=== PATIENT | male | born 1965 | race Two or more races ===

== ENCOUNTER 2017-04-22 15:51 | Observation (INO) | payer MEDICARE ==
--- NOTE | 2017-04-22 17:15 | ER Document Report ---
ED Medical Screen (RME) - General Mode of Arrival: Ambulatory Information source: Patient TRAVEL OUTSIDE OF THE [place] IN LAST 30 DAYS: No <DANNA MALIN - Last Filed: 04/22/17 20:06> <EVANGELINA DURAN - Last Filed: 04/27/17 20:52> - General Chief Complaint: Chest Pain Stated Complaint: CHEST PAIN Time Seen by Provider: 04/22/17 16:54 Notes: Patient is a 51 year old male with a history of NE and cardiac stents was sent to the emergency department by Dr. Tovar for chest pain onset last night. Patient states that he has been having intermittent chest pain which he describes a pressure. Patient also states that he feels as if he is going to "black out" with his chest pain. Patients associated symptoms include slurred speech and left sided tingling of tongue, jaw and arm. Patient denies cough, congestion, or vomiting. Patient states he took 2 Nitro this morning but it did not help his symptoms. ( DANNA MALIN) - Related Data Allergies/Adverse Reactions: pseudoephedrine [From Sudafed] Allergy (Verified 04/22/17 15:54) Sulfa (Sulfonamide Antibiotics) Allergy (Verified 04/22/17 15:54) Past Medical History - Social History Chew tobacco use (# tins/day): No Frequency of alcohol use: None Drug Abuse: None - Past Medical History Cardiac Medical History: Reports: Hx Heart Attack, Hx Hypercholesterolemia, Hx Hypertension Renal/ Medical History: Denies: Hx Peritoneal Dialysis Past Surgical History: Reports: Hx Abdominal Surgery, Hx Appendectomy, Hx Orthopedic Surgery - right shoulder, bilat knee replacement <DANNA MALIN - Last Filed: 04/22/17 20:06> Physical Exam <DANNA MALIN - Last Filed: 04/22/17 20:06> <EVANGELINA DURAN - Last Filed: 04/27/17 20:52> - Vital signs Vitals: Temp Pulse BP Pulse Ox 98.7 F 56 L 94/54 L 96 04/22/17 16:14 04/22/17 16:14 04/22/17 16:14 04/22/17 16:14 - Notes Notes: GENERAL: Alert, interacts well. No acute distress. HEAD: Normocephalic, atraumatic. EYES: Appear normal. Pupils equal, round, and reactive to light. ENT: Moist mucus membranes, tongue midline. NECK: Full range of motion. Supple. Trachea midline. LUNGS: Clear to auscultation bilaterally, no wheezes, rales, or rhonchi. No respiratory distress. HEART: Regular rate and rhythm. No murmurs, gallops, or rubs. ABDOMEN: Soft, non-tender. Non-distended. Normal bowel sounds. EXTREMITIES: Moves all 4 extremities spontaneously. Normal strength. No edema. NEUROLOGICAL: Alert and oriented x3. Slurred speech. PSYCH: Normal affect, normal mood. SKIN: Warm, dry, normal turgor. No rashes or lesions noted. (DANNA MALIN) Course - Laboratory Result Diagrams: 04/22/17 18:33 04/22/17 18:33 <DANNA MALIN - Last Filed: 04/22/17 20:06> - Laboratory Result Diagrams: 04/22/17 18:33 04/22/17 18:33 <EVANGELINA DURAN - Last Filed: 04/27/17 20:52> - Vital Signs Vital signs: Temp Pulse Resp BP Pulse Ox 97.8 F 51 L 18 100/51 L 99 04/23/17 12:15 04/23/17 12:15 04/23/17 12:15 04/23/17 12:15 04/23/17 12:15 - Laboratory Laboratory results interpreted by me: 04/22/17 04/22/17 18:33 18:33 RBC 4.23 L Hgb 13.2 L RDW 14.2 H Potassium 5.4 H BUN 25 H Creatinine 1.68 H Est GFR ( Amer) 52 L Est GFR (Non-Af Amer) 43 L Doctor's Discharge <DANNA MALIN - Last Filed: 04/22/17 20:06> <EVANGELINA DURAN - Last Filed: 04/27/17 20:52> - Discharge Clinical Impression: Bradycardia Chest pain Qualifiers: Chest pain type: precordial pain Qualified Code(s): R07.2 - Precordial pain Condition: Stable Disposition: ADMITTED OBSERVATION Scribe Documentation - Scribe Written by Scribe:: Luis Jacobo, 04/22/2017 17:55 acting as scribe for :: Silas <DANNA MALIN - Last Filed: 04/22/17 20:06>
--- NOTE | 2017-04-22 17:41 | RADIOLOGY REPORT (SQ) ---
EXAM DESCRIPTION: CHEST SINGLE VIEW COMPLETED DATE/TIME: 04/22/2017 5:20 pm REASON FOR STUDY: chest pain COMPARISON: None. EXAM PARAMETERS: NUMBER OF VIEWS: One view. TECHNIQUE: Single frontal radiographic view of the chest acquired. RADIATION DOSE: NA LIMITATIONS: None. FINDINGS: LUNGS AND PLEURA: No opacities, masses or pneumothorax. No pleural effusion. MEDIASTINUM AND HILAR STRUCTURES: No masses. Contour normal. HEART AND VASCULAR STRUCTURES: Heart normal in size. Normal vasculature. BONES: No acute findings. HARDWARE: None in the chest. OTHER: No other significant finding. IMPRESSION: NO ACUTE RADIOGRAPHIC FINDING IN THE CHEST. TECHNICAL DOCUMENTATION: JOB ID: [id number] [employer]- All Rights Reserved
[2017-04-22 19:09] LABS: ABSOLUTE EOSINOPHILS # (AUTO) 0.2 10^3/uL (0.0-0.6); ABSOLUTE LYMPHOCYTES (AUTO) 1.6 10^3/uL (0.5-4.7); ABSOLUTE MONOCYTES (AUTO) 0.8 10^3/uL (0.1-1.4); ABSOLUTE NEUT (AUTO) 4.4 10^3/uL (1.7-8.2); BASOPHILS % (AUTO) 0.5 % (0-2); EOSINOPHILS % (AUTO) 3.6 % (0-6); HEMATOCRIT 38.4 % (37.9-51.0); HEMOGLOBIN 13.2 g/dL (13.5-17.0); LYMPHOCYTES % (AUTO) 22.2 % (13-45); MEAN CORPUSCULAR HEMOGLOBIN 31.1 pg (27.0-33.4); MEAN CORPUSCULAR HGB CONC 34.3 g/dL (32.0-36.0); MEAN CORPUSCULAR VOLUME 91 fl (80-97); PLATELET COUNT 323 10^3/uL (150-450); RED BLOOD COUNT 4.23 10^6/uL (4.35-5.55); RED CELL DISTRIBUTION WIDTH 14.2 % (11.5-14.0); SEGMENTED NEUTROPHILS % (AUTO) 62.7 % (42-78); TOTAL CELLS COUNTED % (AUTO) 100 %
[2017-04-22 19:30] LABS: ALANINE AMINOTRANSFERASE 26 U/L (21-72); ALBUMIN 4.3 g/dL (3.5-5.0); ALKALINE PHOSPHATASE 98 U/L (38-126); ANION GAP 10 (5-19); ASPARTATE AMINO TRANSFERASE 25 U/L (17-59); BILIRUBIN,DIRECT 0.2 mg/dL (0.0-0.4); BILIRUBIN,TOTAL 0.4 mg/dL (0.2-1.3); BLOOD UREA NITROGEN 25 mg/dL (7-20); CALCIUM 9.4 mg/dL (8.4-10.2); CARBON DIOXIDE 26 mmol/L (22-30); CHLORIDE 102 mmol/L (98-107); GLUCOSE 95 mg/dL (75-110); POTASSIUM 5.4 mmol/L (3.6-5.0); TOTAL PROTEIN 7.3 g/dL (6.3-8.2)
[2017-04-22 19:43] LABS: NT PRO BNP 68 pg/mL (5-900)
[2017-04-22 19:46] LABS: TROPONIN I < 0.012 ng/mL
--- NOTE | 2017-04-22 22:01 | ER Document Report ---
ED General - General Chief Complaint: Chest Pain Stated Complaint: CHEST PAIN Time Seen by Provider: 04/22/17 16:54 Mode of Arrival: Ambulatory Notes: She is a pleasant 51-year-old male with a history of coronary disease presents with complaint of chest pain. Patient says that he gets chest pain gets dizzy and feels weak. He saw Dr. Tovar today in his office and asked me to refer him to the ER for further workup. Patient says the pain is mostly left -sided. Is not worse with movement. Is not worse with palpation. He denies any vomiting. He says his previous heart cath was in 2010. Last stress test was approximately year and a half ago. Stress test was performed in [place]. He has no other complaints at this time. He says he is compliant with his medications. TRAVEL OUTSIDE OF THE [place] IN LAST 30 DAYS: No - Related Data Allergies/Adverse Reactions: pseudoephedrine [From Sudafed] Allergy (Verified 04/22/17 15:54) Sulfa (Sulfonamide Antibiotics) Allergy (Verified 04/22/17 15:54) Past Medical History - General Information source: Patient - Social History Smoking Status: Never Smoker Chew tobacco use (# tins/day): No Frequency of alcohol use: None Drug Abuse: None Family History: Reviewed & Not Pertinent Patient has suicidal ideation: No Patient has homicidal ideation: No - Past Medical History Cardiac Medical History: Reports: Hx Heart Attack, Hx Hypercholesterolemia, Hx Hypertension Renal/ Medical History: Denies: Hx Peritoneal Dialysis Past Surgical History: Reports: Hx Abdominal Surgery, Hx Appendectomy, Hx Orthopedic Surgery - right shoulder, bilat knee replacement Review of Systems - Review of Systems Notes: My Normal Review Basic REVIEW OF SYSTEMS: CONSTITUTIONAL : Denies fever, chills, or sweats. Denies recent illness. EENT: Denies eye, ear, throat, or mouth pain or symptoms. Denies nasal or sinus congestion. CARDIOVASCULAR: Chest pain RESPIRATORY: Denies cough, cold, or chest congestion. Denies shortness of breath, difficulty breathing, or wheezing. GASTROINTESTINAL: Denies abdominal pain. Denies nausea, vomiting, or diarrhea MUSCULOSKELETAL: Denies neck or back pain or joint pain or swelling. SKIN: Denies rash or skin lesions. NEUROLOGICAL: Denies altered mental status or loss of consciousness. Denies headache. Denies weakness or paralysis or loss of use of either side. Denies problems with gait or speech. Denies sensory or motor loss. ALL OTHER SYSTEMS REVIEWED AND NEGATIVE. Physical Exam - Vital signs Vitals: Temp Pulse BP Pulse Ox 98.7 F 56 L 94/54 L 96 04/22/17 16:14 04/22/17 16:14 04/22/17 16:14 04/22/17 16:14 - Notes Notes: General Appearance: Well nourished, alert, cooperative, no acute distress, no obvious discomfort. Vitals: reviewed, See vital signs table. Head: no swelling or tenderness to the head Eyes: PERRL, EOMI, Conjuctiva clear Mouth: No decreasd moisture Lungs: No wheezing, No rales, No rhonci, No accessory muscle use, good air exchange bilaterally. Heart: Normal rate, Regular rythm, No murmur, no rub Abdomen: Normal BS, soft, No rigidity, No abdominal tenderness, No guarding, no rebound Extremities: strength 5/5 in all extremities, good pulses in all extremities, no swelling or tenderness in the extremities, no edema. Skin: warm, dry, appropriate color, no rash Neuro: speech clear, oriented x 3, normal affect, responds appropriately to questions. Course - Re-evaluation Re-evalutation: 04/23/17 05:54 Patient she has a history of coronary disease chest pain. I did treat him with nitro paste here. I did speak with Dr. Tovar on the phone iand agreeable with him being admitted possibly arrange for stress test in the morning. I did speak with Dr. Matta informed him the plan. Dr. Matta agrees to admit the patient. Dictation of this chart was performed using voice recognition software; therefore, there may be some unintended grammatical errors. - Vital Signs Vital signs: Temp Pulse Resp BP Pulse Ox 97.9 F 56 L 14 97/64 L 96 04/23/17 05:45 04/22/17 16:14 04/23/17 05:01 04/23/17 05:01 04/23/17 05:01 - Laboratory Result Diagrams: 04/22/17 18:33 04/22/17 18:33 Laboratory results interpreted by me: 04/22/17 04/22/17 18:33 18:33 RBC 4.23 L Hgb 13.2 L RDW 14.2 H Potassium 5.4 H BUN 25 H Creatinine 1.68 H Est GFR ( Amer) 52 L Est GFR (Non-Af Amer) 43 L - EKG Interpretation by Me Additional EKG results interpreted by me: 04/22/17 22:01 EKG is reviewed and interpreted by me. EKG shows sinus bradycardia with rate [address] segment elevation or depression. No ischemic T-wave inversions. DE interval, QRS duration, QTc intervals are within normal range. No old EKG available for comparison. Discharge - Discharge Clinical Impression: Bradycardia Chest pain Qualifiers: Chest pain type: precordial pain Qualified Code(s): R07.2 - Precordial pain Condition: Stable Disposition: ADMITTED OBSERVATION Admitting Provider: Hospitalist Unit Admitted: Telemetry
[2017-04-22] MEDS ORDERED: NITROGLYCERIN 2% OINTMENT 1 GM PACKET TP ONE (22:59)
[2017-04-22] MEDS ORDERED: ASPIRIN 325 MG TABLET PO ONE (23:05)
[2017-04-22] MEDS ORDERED: ASPIRIN 81 MG TABLET, CHEWABLE PO ONE (23:07)
[2017-04-23] MEDS ORDERED: METOPROLOL TARTRATE PF/INJ 5 MG/5 ML SDV IV PRN (01:18)
[2017-04-23] MEDS ORDERED: NITROGLYCERIN 0.4 MG/TAB 25 TAB/BOTTLE SL PRN (01:18)
[2017-04-23] MEDS ORDERED: ENOXAPARIN SODIUM INJ 120 MG/0.8 ML DISP.SYRIN SUBCUT ONE (01:45)
[2017-04-23 04:10] LABS: APPEARANCE,URINE CLEAR; BILIRUBIN,URINE NEGATIVE (NEGATIVE); COLOR,URINE STRAW; GLUCOSE, URINE NEGATIVE (NEGATIVE); KETONES,URINE NEGATIVE (NEGATIVE); LEUKOCYTE ESTERASE,URINE NEGATIVE (NEGATIVE); NITRITE,URINE NEGATIVE (NEGATIVE); PROTEIN,URINE NEGATIVE (NEGATIVE); URINE SPECIFIC GRAVITY 1.004; UROBILINOGEN,URINE NEGATIVE mg/dL (<2.0)
--- NOTE | 2017-04-23 07:40 | EKG REPORT ---
SEVERITY:- OTHERWISE NORMAL ECG - SINUS BRADYCARDIA : Confirmed by: Ivette Tapia MD 23-Apr-2017 07:39:14
--- NOTE | 2017-04-23 07:40 | EKG REPORT ---
SEVERITY:- NORMAL ECG - SINUS RHYTHM : Confirmed by: Ivette Tapia MD 23-Apr-2017 07:39:18
[2017-04-23 08:07] LABS: CHOLESTEROL 174.89 mg/dL (0-200); TRIGLYCERIDES 182 mg/dL (<150)
[2017-04-23 08:19] LABS: DIRECT LDL 103 mg/dL (<100)
[2017-04-23 08:32] LABS: VLDL CHOLESTEROL 36.4 mg/dL (10-31)
[2017-04-23] MEDS ORDERED: ASPIRIN 81 MG TABLET, CHEWABLE PO SCH (10:00)
[2017-04-23 12:17] VITALS: BP 100/51
--- NOTE | 2017-04-23 20:16 | PDOC PROGRESS REPORT ---
Subjective Progress Note for:: 04/23/17 Subjective:: Patient was seen yesterday in the office along with my physician medical office receptionist assistant. Patient had complained of chest discomfort, central in location which started yesterday morning. Patient to sublingual nitroglycerin on his own which he claims caused a burning on his tongue therefore not . Patient had an EKG performed which showed some minor nonspecific T-wave inversion in inferior leads. Patient describes history of non-ST myocardial infarction with similar chest pain and was concerned if he is having a myocardial infarction. Patient was noted to be quite anxious. Because of patient history of non-STEMI and prior stent placement, it was felt that the best option would be to admit to the hospital for observation, done some cardiac enzymes and do a stress test in the morning if patient continues to have chest pain. It seems patient still had some chest pain while waiting in the ER to be seen. Patient was subsequently admitted and this morning when seen by me he denied any chest pain. His cardiac enzymes are negative. EKGs were noted to be nonacute. Patient previous stress test was reviewed and he had a stress test performed in November which was negative. Reason For Visit: ACS Physical Exam Vital Signs: Temp Pulse Resp BP Pulse Ox 97.8 F 51 L 18 100/51 L 99 04/23/17 12:15 04/23/17 12:15 04/23/17 12:15 04/23/17 12:15 04/23/17 12:15 Intake & Output 04/22/17 04/23/17 04/24/17 06:59 06:59 06:59 Output Total 850 Balance -850 Weight 107.1 kg Exam: GENERAL: well-nourished and in no acute distress. Alert and oriented x3 HEAD: Atraumatic, normocephalic. EYES: Pupils equal round and reactive to light, extraocular movements intact, sclera anicteric, conjunctiva are normal. ENT: TMs normal, nares patent, oropharynx clear without exudates. Moist mucous membranes. No oral ulcerations or bleeding gums noted NECK: supple without lymphadenopathy. Trachea is central. No cervical or axillary lymphadenopathy noted. Carotids are 2+, JVD WNL LUNGS: Respiration seems nonlabored, no significant accessory muscle action noted. Breath sounds clear to auscultation bilaterally and equal noted. No wheezes rales or rhonchi noted. No significant dullness noted on percussion. CHEST: Palpation of the chest wall shows no significant chest wall tenderness. No other significant abnormalities noted. HEART: [place] BOAT HAND, No PSH, 1/6 DINH aortic area, 1/6 yin systolic murmur mitral area, no rubs, no gallops. ABDOMEN: Soft, no significant tenderness appreciated, normoactive bowel sounds. No guarding, no rebound. No rigidity noted . No masses appreciated. EXTREMITIES: Pedal pulses are 1-2+, no calf tenderness noted. No clubbing or cyanosis.trace to 1+ pedal edema noted NEUROLOGICAL: Focused neurological exam showed no significant neurologic deficit. Normal speech, no focal weakness appreciated. PSYCH: Normal mood, normal affect. Judgment and insight within normal limits. SKIN: No significant ecchymosis, rash, ulcerations or signs of pruritus noted. MUSCULOSKELETAL EXAM: No significant joint swelling noted. Results Laboratory Results: 04/23/17 04/23/17 03:48 07:42 Triglycerides 182 H Cholesterol 174.89 LDL Cholesterol Direct 103 H VLDL Cholesterol 36.4 H HDL Cholesterol 39 L Urine Color STRAW Urine Appearance CLEAR Urine pH 6.0 Ur Specific [place] 1.004 Urine Protein NEGATIVE Urine Glucose (UA) NEGATIVE Urine Ketones NEGATIVE Urine Blood NEGATIVE Urine Nitrite NEGATIVE Ur Leukocyte Esterase NEGATIVE Urine WBC (Auto) 1 Urine RBC (Auto) 0 04/23/17 04/23/17 01:50 07:42 Troponin I < 0.012 < 0.012 EKG Comments: 2 EKGs reviewed and were noted to be negative. Impressions: Chest X-Ray 04/22/17 16:55 IMPRESSION: NO ACUTE RADIOGRAPHIC FINDING IN THE CHEST. Assessment & Plan - Diagnosis (1) Chest pain Qualifiers: Chest pain type: precordial pain Qualified Code(s): R07.2 - Precordial pain Is this a current diagnosis for this admission?: Yes (2) CAD (coronary artery disease) Qualifiers: Coronary Disease-Associated Artery/Lesion type: [place] artery [place] vs. transplanted heart: [place] heart Associated angina: angina presence unspecified Qualified Code(s): I25.10 - Atherosclerotic heart disease of [place] coronary artery without angina pectoris Is this a current diagnosis for this admission?: Yes (3) DM2 (diabetes mellitus, type 2) Qualifiers: Diabetes mellitus complication status: with unspecified complications Diabetes mellitus half-way insulin use: without marine oil terminal superintendent use Qualified Code( s): E11.8 - Type 2 diabetes mellitus with unspecified complications Is this a current diagnosis for this admission?: Yes (4) PTSD (post-traumatic stress disorder) Is this a current diagnosis for this admission?: Yes - Notes Notes: Chest pain: Patient was admitted for overnight observation for chest pain. Given patient's risk factors and known CAD with prior stent placement and patient description of chest pain, it was felt that overnight observation with cardiac enzymes to rule out any myocardial infarction is indicated. Patient cardiac enzymes were stone cold negative and the enzymes were also negative. It was felt that patient is quite anxious and could well be having stress related chest pain. Patient previous stress test was reviewed. At this point it was felt that it was safe enough to discharge patient home with further evaluation be completed as an outpatient. Coronary artery disease: Currently stable. Diabetes: Recommend good control. PTSD: Stable. Patient can be discharged with close cardiology follow-up as an outpatient. Patient was informed of this decision. - Time Time with patient: Greater than 35 minutes - CODE STATUS was discussed, patient remains full code. Surrogate decision-maker patient's daughter. Multiple medical problems were addressed. More than 50% of the time spent coordinating care, discussing management plans with involved caregivers. Management plans discussed with involved personnels. Medical decision making was of moderate to high complexity, patient's has multiple comorbidities. Medications reviewed and adjusted accordingly: Yes
[2017-04-23] MEDS ORDERED: ENOXAPARIN SODIUM INJ 120 MG/0.8 ML DISP.SYRIN SUBCUT SCH (22:00)
--- NOTE | 2017-04-24 17:06 | PDOC DISCHARGE SUMMARY ---
General - Admit/Disc Date/PCP Admission Date/Primary Care Provider: 04/22/17 23:24 Discharge Date: 04/23/17 - Discharge Diagnosis (1) CAD (coronary artery disease) Is this a current diagnosis for this admission?: Yes (2) Chest pain Is this a current diagnosis for this admission?: Yes (4) DM2 (diabetes mellitus, type 2) Is this a current diagnosis for this admission?: Yes (5) MICHAEL on CPAP Is this a current diagnosis for this admission?: Yes (6) PTSD (post-traumatic stress disorder) Is this a current diagnosis for this admission?: Yes - Additional Information Resuscitation Status: Full Code Discharge Diet: As Tolerated, Cardiac Discharge Activity: Activity As Tolerated, Balance Activity w/Rest Home Medications: Amlodipine Besylate [Norvasc 10 mg Tablet] 10 mg PO DAILY 04/23/17 Aspirin [Aspirin EC] 81 mg PO DAILY 04/23/17 Atorvastatin Calcium [Lipitor 40 mg Tablet] 40 mg PO DAILY 04/23/17 Citalopram Hydrobromide [Celexa 20 mg Tablet] 30 mg PO DAILY 04/23/17 Divalproex Sodium [Divalproex Sodium ER] 250 mg PO BID 04/23/17 Docusate Sodium [Colace 100 mg Capsule] 100 mg PO DAILYP PRN 04/23/17 Doxazosin Mesylate [Cardura 2 mg Tablet] 2 mg PO DAILY 04/23/17 Fluticasone Propionate [Flonase Nasal [place] 50 Mcg/[place] 16 gm] 1 spray NASL DAILY 04/23/17 Gabapentin [Neurontin] 800 mg PO Q8 04/23/17 Haloperidol [Haldol 1 mg Tablet] 1 mg PO Q8 04/23/17 Lisinopril [Prinivil] 20 mg PO DAILY 04/23/17 Metformin HCl [Glucophage 500 mg Tablet] 500 mg PO DAILY 04/23/17 Nitroglycerin [Nitrostat] 0.3 mg SL Q5MP PRN 04/23/17 Ranolazine [Ranexa] 1,000 mg PO BID 04/23/17 Trihexyphenidyl HCl [Artane 2 mg Tablet] 2 mg PO Q6 04/23/17 History of Present Illness History of Present Illness: JOIE BYRD is a 51 year old male with a history of coronary disease presents with complaint of chest pain. Patient says that he gets chest pain gets dizzy and feels weak. He saw Dr. Tovar on the day of admission in his office and asked him to go the ER for further workup. Patient stated the pain was mostly left-sided. Was not worse with movement or with palpation. He denied any vomiting. He ststed that he had a heart attack back in 2010 when he had a heart cath. Last stress test was approximately year and a half ago. Stress test was performed in [place]. Patient was admitted on the hospitalist service for further evaluation Hospital Course Hospital Course: Patient was admitted to telemetry unit. There were no cardiac dysrhythmias. Troponin was trended 3 and negative. Patient remain chest pain-free while in- house. Patient was seen by Dr. Tovar who recommended for patient to be discharged. He did not recommend a stress test during this hospitalization. Patient was stable at the time of discharge Physical Exam Vital Signs: Temp Pulse Resp BP Pulse Ox 97.8 F 51 L 18 100/51 L 99 04/23/17 12:15 04/23/17 12:15 04/23/17 12:15 04/23/17 12:15 04/23/17 12:15 Intake & Output 04/23/17 04/24/17 04/25/17 06:59 06:59 06:59 Output Total 850 Balance -850 Weight 107.1 kg General appearance: PRESENT: no acute distress, cooperative, morbidly obese Head exam: PRESENT: atraumatic, normocephalic Eye exam: PRESENT: EOMI, PERRLA Mouth exam: PRESENT: moist, neck supple Neck exam: PRESENT: full ROM. ABSENT: JVD, lymphadenopathy, tenderness Respiratory exam: PRESENT: clear to auscultation [place] Cardiovascular exam: PRESENT: bradycardia. ABSENT: diastolic murmur, systolic murmur Vascular exam: PRESENT: normal capillary refill GI/Abdominal exam: PRESENT: normal bowel sounds, soft. ABSENT: tenderness Extremities exam: PRESENT: full ROM. ABSENT: clubbing, joint swelling, pedal edema Musculoskeletal exam: PRESENT: ambulatory, full ROM Neurological exam: PRESENT: alert, awake, oriented to person, oriented to place , oriented to time, oriented to situation, CN II-XII grossly intact Psychiatric exam: PRESENT: appropriate affect, normal mood Skin exam: PRESENT: intact, normal color Results Laboratory Results: 04/23/17 04/23/17 01:50 07:42 Troponin I < 0.012 < 0.012 Impressions: Chest X-Ray 04/22/17 16:55 IMPRESSION: NO ACUTE RADIOGRAPHIC FINDING IN THE CHEST. Plan Discharge Plan: Discharge home Time Spent: Less than 30 Minutes
--- NOTE | 2017-04-24 18:47 | PDOC H&P ---
History of Present Illness Admission Date/PCP: 04/22/17 23:24 Patient complains of: Chest pains History of Present Illness: JOIE BYRD is a 51 year old male with a past medical history of coronary artery disease. He had remained chest pain-free since his heart attack several years ago. At that time he did have single-vessel disease according to the patient. He relates that he had a stress test about a year ago. He had remained asymptomatic until approximately 2 days ago when he began experiencing chest pressure at rest. He went to see his meter mechanic. Electrocardiogram showed some inferior lead ST T-wave changes. Patient was referred to the emergency room for enzymes and treatments. Patient related that he continued to have chest pains in the waiting room which responded to 3 doses of nitroglycerin and is currently pain-free. Past Medical History Cardiac Medical History: Reports: Myocardial Infarction, Hyperlipidema, Hypertension Endocrine Medical History: Reports: Diabetes Mellitus Type 2 Renal/ Medical History: Reports: Chronic Kidney Disease Psychiatric Medical History: Reports: Post Traumatic Stress Disorder Infectious Medical History: Reports: None Past Surgical History Past Surgical History: Reports: Appendectomy, Cardiac Catheterization, Orthopedic Surgery - right shoulder, bilat knee replacement Social History Information Source: Patient Lives with: Family, Other - Patient and his ex- are currently living with their son and his family Smoking Status: Never Smoker Frequency of Alcohol Use: None Hx Recreational Drug Use: No Drugs: None Hx Prescription Drug Abuse: No - Advance Directive Resuscitation Status: Full Code Family History Family History: Hyperlipidemia Parental Family History Reviewed: Yes Children Family History Reviewed: Yes Sibling(s) Family History Reviewed.: Yes Medication/Allergy Home Medications: Amlodipine Besylate [Norvasc 10 mg Tablet] 10 mg PO DAILY 04/23/17 Aspirin [Aspirin EC] 81 mg PO DAILY 04/23/17 Atorvastatin Calcium [Lipitor 40 mg Tablet] 40 mg PO DAILY 04/23/17 Citalopram Hydrobromide [Celexa 20 mg Tablet] 30 mg PO DAILY 04/23/17 Divalproex Sodium [Divalproex Sodium ER] 250 mg PO BID 04/23/17 Docusate Sodium [Colace 100 mg Capsule] 100 mg PO DAILYP PRN 04/23/17 Doxazosin Mesylate [Cardura 2 mg Tablet] 2 mg PO DAILY 04/23/17 Fluticasone Propionate [Flonase Nasal [place] 50 Mcg/[place] 16 gm] 1 spray NASL DAILY 04/23/17 Gabapentin [Neurontin] 800 mg PO Q8 04/23/17 Haloperidol [Haldol 1 mg Tablet] 1 mg PO Q8 04/23/17 Lisinopril [Prinivil] 20 mg PO DAILY 04/23/17 Metformin HCl [Glucophage 500 mg Tablet] 500 mg PO DAILY 04/23/17 Nitroglycerin [Nitrostat] 0.3 mg SL Q5MP PRN 04/23/17 Ranolazine [Ranexa] 1,000 mg PO BID 04/23/17 Trihexyphenidyl HCl [Artane 2 mg Tablet] 2 mg PO Q6 04/23/17 Allergies/Adverse Reactions: pseudoephedrine [From Sudafed] Allergy (Verified 04/22/17 15:54) Sulfa (Sulfonamide Antibiotics) Allergy (Verified 04/22/17 15:54) Review of Systems Constitutional: ABSENT: chills, fever(s), headache(s), weight gain, weight loss Eyes: ABSENT: visual disturbances Ears: ABSENT: hearing changes Cardiovascular: PRESENT: as per HPI, chest pain. ABSENT: dyspnea on exertion, edema, orthropnea, palpitations Respiratory: ABSENT: cough, hemoptysis Gastrointestinal: ABSENT: abdominal pain, constipation, diarrhea, hematemesis, hematochezia, nausea, vomiting Genitourinary: ABSENT: dysuria, hematuria Musculoskeletal: ABSENT: joint swelling Integumentary: ABSENT: rash, wounds Neurological: ABSENT: abnormal gait, abnormal speech, confusion, dizziness, focal weakness, syncope Psychiatric: PRESENT: anxiety, depression Endocrine: ABSENT: cold intolerance, heat intolerance, polydipsia, polyuria Hematologic/Lymphatic: ABSENT: easy bleeding, easy bruising Physical Exam Vital Signs: Temp Pulse Resp BP Pulse Ox 98.0 F 56 L 16 125/83 99 04/23/17 01:00 04/22/17 16:14 04/23/17 01:01 04/23/17 00:01 04/23/17 01:01 General appearance: PRESENT: no acute distress, cooperative, obese, well- developed, well-nourished Head exam: PRESENT: atraumatic, normocephalic Eye exam: PRESENT: EOMI, PERRLA. ABSENT: nystagmus Ear exam: PRESENT: normal external ear exam Neck exam: ABSENT: carotid bruit, JVD, meningismus Respiratory exam: PRESENT: clear to auscultation [place], symmetrical, unlabored. ABSENT: accessory muscle use, rhonchi, wheezes Cardiovascular exam: PRESENT: bradycardia. ABSENT: diastolic murmur, systolic murmur, tachycardia GI/Abdominal exam: PRESENT: normal bowel sounds, soft. ABSENT: guarding, organolmegaly, rebound Rectal exam: PRESENT: deferred Extremities exam: PRESENT: full ROM. ABSENT: calf tenderness, clubbing, pedal edema Musculoskeletal exam: PRESENT: ambulatory, normal inspection Neurological exam: PRESENT: alert, awake, oriented to person, oriented to place , oriented to time, oriented to situation Psychiatric exam: PRESENT: appropriate affect, normal mood Skin exam: PRESENT: dry, intact, warm. ABSENT: cyanosis, rash Results Laboratory Results: 04/22/17 04/22/17 04/22/17 18:33 18:33 18:33 WBC 7.0 Hgb 13.2 L Plt Count 323 Sodium 138.0 Potassium 5.4 H BUN 25 H Creatinine 1.68 H AST 25 ALT 26 Alkaline Phosphatase 98 Troponin I < 0.012 NT-Pro-B Natriuret Pep 68 Albumin 4.3 EKG Comments: Sinus rhythm, previous ST segment abnormalities have resolved Impressions: Chest X-Ray 04/22/17 16:55 IMPRESSION: NO ACUTE RADIOGRAPHIC FINDING IN THE CHEST. Assessment & Plan - Diagnosis (1) PTSD (post-traumatic stress disorder) Is this a current diagnosis for this admission?: Yes (2) CAD (coronary artery disease) Qualifiers: Coronary Disease-Associated Artery/Lesion type: [place] artery [place] vs. transplanted heart: [place] heart Associated angina: angina presence unspecified Qualified Code(s): I25.10 - Atherosclerotic heart disease of [place] coronary artery without angina pectoris Is this a current diagnosis for this admission?: Yes (3) DM2 (diabetes mellitus, type 2) Qualifiers: Diabetes mellitus complication status: with unspecified complications Diabetes mellitus retirement insulin use: without retirement use Qualified Code( s): E11.8 - Type 2 diabetes mellitus with unspecified complications Is this a current diagnosis for this admission?: Yes (4) MICHAEL on CPAP Is this a current diagnosis for this admission?: Yes (5) Chest pain Qualifiers: Chest pain type: precordial pain Qualified Code(s): R07.2 - Precordial pain Is this a current diagnosis for this admission?: Yes - Time Time Spent: 30 to 50 Minutes - Plan Summary Plan Summary: Patient is currently pain-free however his initial troponin was drawn about an hour after his last episode of chest pain. he will require several more measurements. Patient will be continued on his home regimen of psychotropics. His meter mechanic is aware of his admission. The we will recheck his cholesterol and hemoglobin A1c in the morning. Patient will receive full dose Lovenox
== END 2017-04-23 12:54 | disposition home or self-care (01) ==
LOC: ER 15:51 → EH 23:24 → 3W 04-23 08:29
PROVIDERS: ADMIT Internal Medicine; ATTEND Internal Medicine
DX: I25.10 Atherosclerotic heart disease of native coronary artery without angina pectoris (principal); R07.2 Precordial pain; G47.33 Obstructive sleep apnea (adult) (pediatric); F43.10 Post-traumatic stress disorder, unspecified; R00.1 Bradycardia, unspecified; I12.9 Hypertensive chronic kidney disease with stage 1 through stage 4 chronic kidney disease, or unspecified chronic kidney disease; E11.22 Type 2 diabetes mellitus with diabetic chronic kidney disease; N18.9 Chronic kidney disease, unspecified; E11.8 Type 2 diabetes mellitus with unspecified complications; E78.5 Hyperlipidemia, unspecified; F41.9 Anxiety disorder, unspecified; F32.9 Major depressive disorder, single episode, unspecified; R20.2 Paresthesia of skin; R47.81 Slurred speech; I25.2 Old myocardial infarction; Z79.899 Other long term (current) drug therapy; Z79.82 Long term (current) use of aspirin; Z90.49 Acquired absence of other specified parts of digestive tract; Z95.5 Presence of coronary angioplasty implant and graft; Z79.84 Long term (current) use of oral hypoglycemic drugs
CPT/HCPCS: 93005; 99285; 96372; 36415 ×2; 83735; 85025; 80053; 81001; 84484 ×2; 80061; 83880; 71045; 93010; G0378 ×2; A9270 ×2; J1650; J3490

== ENCOUNTER 2017-11-11 21:10 | Emergency (ER) | payer MEDICARE ==
[2017-11-11] MEDS ORDERED: ASPIRIN 81 MG TABLET, CHEWABLE PO ONE (22:12)
--- NOTE | 2017-11-11 22:38 | RADIOLOGY REPORT (SQ) ---
EXAM DESCRIPTION: CHEST SINGLE VIEW COMPLETED DATE/TIME: 11/11/2017 10:22 pm REASON FOR STUDY: cp COMPARISON: 04/22/2017 EXAM PARAMETERS: NUMBER OF VIEWS: One view. TECHNIQUE: Single frontal radiographic view of the chest acquired. RADIATION DOSE: NA LIMITATIONS: None. FINDINGS: LUNGS AND PLEURA: No opacities, masses or pneumothorax. No pleural effusion. MEDIASTINUM AND HILAR STRUCTURES: No masses. Contour normal. HEART AND VASCULAR STRUCTURES: Heart normal in size. Normal vasculature. BONES: No acute findings. HARDWARE: None in the chest. OTHER: No other significant finding. IMPRESSION: NO ACUTE RADIOGRAPHIC FINDING IN THE CHEST. TECHNICAL DOCUMENTATION: JOB ID: [id number] [employer]- All Rights Reserved Reading location - IP/workstation name: [email or web address]
[2017-11-11] MEDS ORDERED: NITROGLYCERIN 0.4 MG/TAB 25 TAB/BOTTLE SL PRN (23:35)
--- NOTE | 2017-11-11 23:35 | ER Document Report ---
ED General - General Mode of Arrival: Ambulatory Information source: Patient TRAVEL OUTSIDE OF THE [place] IN LAST 30 DAYS: No <DANNA MALIN - Last Filed: 11/12/17 01:45> <BRETT MORALES - Last Filed: 11/12/17 05:53> - General Chief Complaint: Chest Pain Stated Complaint: CHEST PAIN Time Seen by Provider: 11/11/17 23:08 Notes: Patient is a 52 year old male presenting to the emergency department complaining of chest pain onset around 2000 tonight. Patient describes his chest pain as a stabbing that radiates into his left shoulder and arm as well as "something sitting on his chest". Patient states his symptoms feel similar to a previous FL that he had in 2010. Patient states nitroglycerin normally alleviates his symptoms although today the nitroglycerin relived his symptoms for a short period of time, further stating he last received nitro at approximately 2039. He also states he took 4 aspirin today. Patient also complains of shortness of breath and dizziness. Patient denies abdominal pain and a cough. Patient states his chief operating officer is Dr. Tovar. Patient states he received 1 stent shortly after his FL in 2010 and had a negative stress test a few months ago. (DANNA MALIN) - Related Data Allergies/Adverse Reactions: pseudoephedrine [From Sudafed] Allergy (Verified 04/22/17 15:54) Sulfa (Sulfonamide Antibiotics) Allergy (Verified 04/22/17 15:54) Past Medical History - General Information source: Patient - Social History Smoking Status: Never Smoker Cigarette use (# per day): No Chew tobacco use (# tins/day): No Smoking Education Provided: No Frequency of alcohol use: None Family History: Hyperlipidemia - Past Medical History Cardiac Medical History: Reports: Hx Heart Attack, Hx Hypercholesterolemia, Hx Hypertension Endocrine Medical History: Reports: Hx Diabetes Mellitus Type 2 Psychiatric Medical History: Reports: Hx Post Traumatic Stress Disorder Past Surgical History: Reports: Hx Abdominal Surgery, Hx Appendectomy, Hx Cardiac Catheterization, Hx Orthopedic Surgery - right shoulder, bilat knee replacement <DANNA MALIN - Last Filed: 11/12/17 01:45> Review of Systems - Review of Systems Constitutional: No symptoms reported EENT: No symptoms reported Cardiovascular: See HPI, Chest pain, Dizziness Respiratory: See HPI, Short of breath Gastrointestinal: No symptoms reported Genitourinary: No symptoms reported Male Genitourinary: No symptoms reported Musculoskeletal: No symptoms reported Skin: No symptoms reported Hematologic/Lymphatic: No symptoms reported Neurological/Psychological: No symptoms reported -: Yes All other systems reviewed and negative <DANNA MALIN - Last Filed: 11/12/17 01:45> - Vital signs Vitals: Temp Pulse Resp BP Pulse Ox 97.7 F 61 16 107/62 94 11/11/17 21:17 11/11/17 21:17 11/11/17 21:17 11/11/17 21:17 11/11/17 21:17 Course - Laboratory Result Diagrams: 11/11/17 23:45 11/11/17 23:45 <DANNA MALIN - Last Filed: 11/12/17 01:45> - Laboratory Result Diagrams: 11/11/17 23:45 11/11/17 23:45 <BRETT MORALES - Last Filed: 11/12/17 05:53> - Re-evaluation Re-evalutation: 11/12/17 00:10 Patient rechecked. Stated the nitroglycerin did not alleviate his chest pain and caused him to have a headache. Patient further mentions having an elevated D -dimer in the past but unsure if he had a blood clot. (DANNA MALIN) 11/12/17 05:19 Patient is a 52-year-old male who comes in complaining of chest pain that is usually relieved with nitro but was not tonight. Patient received nitroglycerin here which did not change his chest pain but gave him a headache and drops his blood pressure. Pain is resolved on its own. No acute findings in EKG. Troponin negative 2. CTA negative. 11/12/17 05:[address] Tovar. Feels that the patient is safe to go home. He will see him in the office later today. Patient is agreeable to this plan. Return if any worsening or concerning symptoms. Stable for discharge. (BRETT MORALES) - Vital Signs Vital signs: Temp Pulse Resp BP Pulse Ox 97.7 F 61 14 102/71 94 11/11/17 21:17 11/11/17 21:17 11/12/17 05:00 11/12/17 05:00 11/12/17 05:00 - Laboratory Laboratory results interpreted by me: 11/11/17 11/11/17 23:45 23:45 RBC 4.06 L Hgb 13.2 L Hct 37.5 L Potassium 5.4 H BUN 23 H Creatinine 1.33 H Est GFR (Non-Af Amer) 56 L ALT 20 L Discharge <DANNA MALIN - Last Filed: 11/12/17 01:45> <BRETT MORALES - Last Filed: 11/12/17 05:53> - Discharge Clinical Impression: Chest pain Qualifiers: Chest pain type: unspecified Qualified Code(s): R07.9 - Chest pain, unspecified Condition: Stable Disposition: HOME, SELF-CARE Instructions: Chest Pain of Unclear Cause ([facility]) Referrals: MARICARMEN JACK MD [Primary Care Provider] - Follow up as needed SITA TOVAR MD [ACTIVE STAFF] - 11/12/17 Scribe Attestation: 11/12/17 05:53 I personally performed the services described in the documentation, reviewed and edited the documentation which was dictated to the scribe in my presence, and it accurately records my words and actions. (BRETT MORALES) Scribe Documentation - Scribe Written by Luis:: Luis Jacobo, 11/12/2017 00:13 acting as scribe for :: Marcie <DANNA MALIN - Last Filed: 11/12/17 01:45>
[2017-11-12 00:05] LABS: ABSOLUTE EOSINOPHILS # (AUTO) 0.2 10^3/uL (0.0-0.6); ABSOLUTE LYMPHOCYTES (AUTO) 1.7 10^3/uL (0.5-4.7); ABSOLUTE MONOCYTES (AUTO) 0.8 10^3/uL (0.1-1.4); ABSOLUTE NEUT (AUTO) 3.5 10^3/uL (1.7-8.2); BASOPHILS % (AUTO) 0.3 % (0-2); EOSINOPHILS % (AUTO) 3.9 % (0-6); HEMATOCRIT 37.5 % (37.9-51.0); HEMOGLOBIN 13.2 g/dL (13.5-17.0); LYMPHOCYTES % (AUTO) 27.1 % (13-45); MEAN CORPUSCULAR HEMOGLOBIN 32.6 pg (27.0-33.4); MEAN CORPUSCULAR HGB CONC 35.2 g/dL (32.0-36.0); MEAN CORPUSCULAR VOLUME 93 fl (80-97); MONOCYTES % (AUTO) 12.3 % (3-13); PLATELET COUNT 255 10^3/uL (150-450); RED BLOOD COUNT 4.06 10^6/uL (4.35-5.55); RED CELL DISTRIBUTION WIDTH 13.4 % (11.5-14.0); SEGMENTED NEUTROPHILS % (AUTO) 56.4 % (42-78); TOTAL CELLS COUNTED % (AUTO) 100 %; WHITE BLOOD COUNT 6.2 10^3/uL (4.0-10.5)
[2017-11-12 00:06] LABS: ALANINE AMINOTRANSFERASE 20 U/L (21-72); ALBUMIN 4.1 g/dL (3.5-5.0); ALKALINE PHOSPHATASE 99 U/L (38-126); ANION GAP 10 (5-19); ASPARTATE AMINO TRANSFERASE 24 U/L (17-59); BILIRUBIN,DIRECT 0.2 mg/dL (0.0-0.4); BILIRUBIN,TOTAL 0.5 mg/dL (0.2-1.3); BLOOD UREA NITROGEN 23 mg/dL (7-20); CARBON DIOXIDE 28 mmol/L (22-30); CHLORIDE 103 mmol/L (98-107); CREATINE KINASE 82 U/L (55-170); GLUCOSE 89 mg/dL (75-110); POTASSIUM 5.4 mmol/L (3.6-5.0); SODIUM 140.5 mmol/L (137-145); TOTAL PROTEIN 7.3 g/dL (6.3-8.2)
[2017-11-12] MEDS ORDERED: NORMAL SALINE 500 ML IV ONE (00:11)
[2017-11-12] MEDS ORDERED: ACETAMINOPHEN 325 MG TABLET PO ONE (00:12)
[2017-11-12 00:18] LABS: CREATINE KINASE MB 0.99 ng/mL (<4.55)
[2017-11-12 00:21] LABS: TROPONIN I < 0.012 ng/mL
--- NOTE | 2017-11-12 03:39 | RADIOLOGY REPORT (SQ) ---
EXAM DESCRIPTION: CT CHEST ANGIOGRAPHY WITHOUT THEN WITH IV CONTRAST COMPLETED DATE/TME: 11/12/2017 01:10 CLINICAL HISTORY: 52 years Male, evaluate for pe Comparison: CR, 11/11/2017 10:22 pm Technique: IV contrast. Coronal and sagittal reformat. 3d reconstruction. This exam was performed according to our departmental dose-optimization program, which includes automated exposure control, adjustment of the mA and/or kV according to patient size and/or use of iterative reconstruction technique.[facility]: Dose Right [facility]: CareDose [facility]: Dose Right [facility]: Teradose 4D [facility]: Smart [employer]Kit LIMITATIONS: None Findings: Moderate lung volume, moderate coronary artery calcification-stenting, small right lower lobar atelectasis or scar, T1 intervertebral hemangioma, mild upper thoracic dextroconvexity. No pulmonary embolus. No right ventricular strain. Clear lungs. Inferior neck, axillae, mediastinum, lungs, airway, lymphatics, heart, vasculature, upper abdomen, and musculoskeleton appear unremarkable. Impression: No pulmonary embolus. No acute cardiopulmonary findings.
--- NOTE | 2017-11-12 07:18 | EKG REPORT ---
SEVERITY:- NORMAL ECG - SINUS RHYTHM : Confirmed by: Chris Cortez MD 12-Nov-2017 07:18:16
--- NOTE | 2017-11-12 07:19 | EKG REPORT ---
SEVERITY:- NORMAL ECG - SINUS RHYTHM : Confirmed by: Chris Cortez MD 12-Nov-2017 07:18:24
[2017-11-12 07:30] VITALS: BP 102/77
== END 2017-11-12 07:43 | disposition home or self-care (01) ==
LOC: ER 21:10
DX: R07.9 Chest pain, unspecified (principal); E78.00 Pure hypercholesterolemia, unspecified; I10 Essential (primary) hypertension; E11.9 Type 2 diabetes mellitus without complications; Z96.653 Presence of artificial knee joint, bilateral; Z88.2 Allergy status to sulfonamides; I25.2 Old myocardial infarction
CPT/HCPCS: 93005; 99285; 96360; 96361; 36415; 82553; 82550; 84443; 85025; 80053; 84484; 71045; 71275; 93010; A9270 ×2; J7040

== ENCOUNTER → 2018-02-28 | Outpatient (CLI) | payer MEDICARE ==
--- NOTE | 2018-02-28 10:31 | RADIOLOGY REPORT (SQ) ---
EXAM DESCRIPTION: CT HEAD WITHOUT COMPLETED DATE/TIME: 02/28/2018 10:22 am REASON FOR STUDY: SYNCOPE/HEADACHE R55 SYNCOPE AND COLLAPSE R51 HEADACHE COMPARISON: None. TECHNIQUE: Axial images acquired through the brain without intravenous contrast. Images reviewed wi th bone, brain and subdural windows. Additional sagittal and coronal reconstructions were generated. Images stored on PACS. All CT scanners at this facility use dose modulation, iterative reconstruction, and/or weight based d osing when appropriate to reduce radiation dose to as low as reasonably achievable (ALARA). [facility]: Dose Right [facility]: CareDose [facility]: Dose Right [facility]: Teradose 4D [facility]: P[employer] RADIATION DOSE: CT Rad equipment meets quality standard of care and radiation dose reduction techniq ues were employed. CTDIvol: 48.7 mGy. DLP: 1029 mGy-cm. mGy. LIMITATIONS: None. FINDINGS: VENTRICLES: Normal size and contour. CEREBRUM: No masses. No hemorrhage. No midline shift. No evidence for acute infarction. Normal gra y/white matter differentiation. No areas of low density in the white matter. CEREBELLUM: No masses. No hemorrhage. No alteration of density. No evidence for acute infarction. EXTRAAXIAL SPACES: No fluid collections. No masses. ORBITS AND GLOBE: No intra- or extraconal masses. Normal contour of globe without masses. CALVARIUM: No fracture. PARANASAL SINUSES: No fluid or mucosal thickening. SOFT TISSUES: No mass or hematoma. OTHER: No other significant finding. IMPRESSION: NORMAL BRAIN CT WITHOUT CONTRAST. EVIDENCE OF ACUTE STROKE: NO. COMMENT: Quality ID # [id number]: Final reports with documentation of one or more dose reduction techniques (e.g., Automated exposure control, adjustment of the mA and/or kV according to patient size, use of iterative reconstruction technique) TECHNICAL DOCUMENTATION: JOB ID: [id number] [employer]- All Rights Reserved Reading location - IP/workstation name: [email or web address]
== END ==
LOC: RAD 10:06
PROVIDERS: ATTEND Physician Assistant Medical
DX: R55 Syncope and collapse (principal); R51 Headache
CPT/HCPCS: 70450

== ENCOUNTER 2018-05-02 19:04 | Observation (INO) | payer MEDICARE ==
[2018-05-02 19:31] LABS: ABSOLUTE EOSINOPHILS # (AUTO) 0.4 10^3/uL (0.0-0.6); ABSOLUTE LYMPHOCYTES (AUTO) 1.6 10^3/uL (0.5-4.7); ABSOLUTE MONOCYTES (AUTO) 0.7 10^3/uL (0.1-1.4); ABSOLUTE NEUT (AUTO) 3.5 10^3/uL (1.7-8.2); BASOPHILS % (AUTO) 0.6 % (0-2); EOSINOPHILS % (AUTO) 6.1 % (0-6); HEMATOCRIT 36.3 % (37.9-51.0); HEMOGLOBIN 12.7 g/dL (13.5-17.0); LYMPHOCYTES % (AUTO) 25.6 % (13-45); MEAN CORPUSCULAR HEMOGLOBIN 33.1 pg (27.0-33.4); MEAN CORPUSCULAR VOLUME 95 fl (80-97); MONOCYTES % (AUTO) 11.9 % (3-13); PLATELET COUNT 278 10^3/uL (150-450); RED BLOOD COUNT 3.84 10^6/uL (4.35-5.55); SEGMENTED NEUTROPHILS % (AUTO) 55.8 % (42-78); TOTAL CELLS COUNTED % (AUTO) 100 %; WHITE BLOOD COUNT 6.2 10^3/uL (4.0-10.5)
--- NOTE | 2018-05-02 19:37 | RADIOLOGY REPORT (SQ) ---
EXAM DESCRIPTION: CHEST SINGLE VIEW COMPLETED DATE/TIME: 05/02/2018 7:20 pm REASON FOR STUDY: chest pain COMPARISON: 11/11/2017. EXAM PARAMETERS: NUMBER OF VIEWS: One view. TECHNIQUE: Single frontal radiographic view of the chest acquired. RADIATION DOSE: NA LIMITATIONS: None. FINDINGS: LUNGS AND PLEURA: Chronic elevation of the right hemidiaphragm. No opacities, masses or p neumothorax. No pleural effusion. MEDIASTINUM AND HILAR STRUCTURES: No masses. Contour normal. HEART AND VASCULAR STRUCTURES: Heart normal in size. Normal vasculature. BONES: No acute findings. HARDWARE: None in the chest. OTHER: No other significant finding. IMPRESSION: NO ACUTE RADIOGRAPHIC FINDING IN THE CHEST. TECHNICAL DOCUMENTATION: JOB ID: [id number] [employer]- All Rights Reserved Reading location - IP/workstation name: [email or web address]
[2018-05-02 19:53] LABS: ALANINE AMINOTRANSFERASE 24 U/L (21-72); ALBUMIN 4.1 g/dL (3.5-5.0); ALKALINE PHOSPHATASE 95 U/L (38-126); ANION GAP 10 (5-19); ASPARTATE AMINO TRANSFERASE 21 U/L (17-59); BILIRUBIN,DIRECT 0.2 mg/dL (0.0-0.4); BILIRUBIN,TOTAL 0.3 mg/dL (0.2-1.3); BLOOD UREA NITROGEN 21 mg/dL (7-20); CALCIUM 9.1 mg/dL (8.4-10.2); CARBON DIOXIDE 28 mmol/L (22-30); CHLORIDE 102 mmol/L (98-107); CREATINE KINASE 92 U/L (55-170); GLUCOSE 116 mg/dL (75-110); POTASSIUM 4.9 mmol/L (3.6-5.0); SODIUM 140.1 mmol/L (137-145); TOTAL PROTEIN 6.8 g/dL (6.3-8.2)
[2018-05-02 20:09] LABS: TROPONIN I < 0.012 ng/mL
--- NOTE | 2018-05-02 20:57 | ER Document Report ---
ED Cardiac - General Chief Complaint: Chest Pain Stated Complaint: CHEST PAIN Time Seen by Provider: 05/02/18 20:57 Primary Care Provider: MARICARMEN JACK MD [Primary Care Provider] - Follow up as needed Mode of Arrival: Ambulatory Information source: Patient Notes: HISTORY OF PRESENT ILLNESS: Patient is a 52-year-old male with a past medical history of coronary artery disease status post stent placement who presents with chest pain that began acutely at around 6 PM prior to arrival. Location: Middle of the chest Onset: Sudden while sitting down Alleviation: Some improvement with home nitroglycerin Provocation: Exertion Quality: Tightness, heaviness Radiation: None Severity: Moderate Timing: Constant History of CAD: Yes Associated symptoms: Mild nausea but no vomiting, no shortness of breath, no swelling of extremities REVIEW OF SYSTEMS: CONSTITUTIONAL : Denies fever or chills, no sweats. Denies recent illness. EENT: Denies eye, ear, throat, or mouth pain or symptoms. Denies nasal or sinus congestion. CARDIOVASCULAR: Positive for chest pain. Denies swelling of the legs. RESPIRATORY: Denies cough, cold, or chest congestion. Denies shortness of breath or difficulty breathing. Denies wheezing. GASTROINTESTINAL: Denies abdominal pain. Denies nausea, vomiting, or diarrhea. Denies constipation. GENITOURINARY: Denies difficulty urinating, painful urination, burning, frequency, or blood in urine. MUSCULOSKELETAL: Denies neck or back pain or joint pain or swelling. SKIN: Denies rash or skin lesions. HEMATOLOGIC : Denies easy bruising or bleeding. LYMPHATIC: Denies swollen, enlarged glands. NEUROLOGICAL: Denies altered mental status or loss of consciousness. Denies headache. Denies weakness or paralysis or loss of use of either side. Denies problems with gait or speech. Denies sensory or motor loss. PSYCHIATRIC: Denies anxiety or stress or depression. All other systems reviewed and negative. PHYSICAL EXAMINATION: GENERAL: Well-appearing, well-nourished and in no acute distress. HEAD: Atraumatic, normocephalic. No scalp deformity, depression, or crepitance. EYES: Pupils are 3 mm and equal/round/reactive to light, extraocular movements intact, sclera anicteric, conjunctiva are normal. ENT: Nares patent bilaterally, oropharynx. Moist mucous membranes. No tonsil hypertrophy. NECK: Normal range of motion, supple without lymphadenopathy. LUNGS: Breath sounds present, equal, and clear to auscultation bilaterally. No wheezes, rales, or rhonchi. HEART: Regular rate and rhythm without murmurs, rubs, or gallops. 2+ peripheral pulses. Normal capillary refill. ABDOMEN: Soft, nontender, nondistended. Normoactive bowel sounds. No guarding, no rebound. No masses appreciated. BACK: Normal contour, no midline tenderness. Rectal exam deferred. GENITAL/PELVIC: Deferred. EXTREMITIES: Normal range of motion, no pitting or edema. No cyanosis. NEUROLOGICAL: No focal neurological deficits. Moves all extremities spontaneously and on command. PSYCH: Normal mood, normal affect. No suicidal thoughts/ideations. No homocidal thoughts/ideations. No hallucinations. SKIN: Warm, dry, normal turgor, no rashes or lesions noted. ASSESSMENT AND PLAN: This patient is a 52-year-old male who presents with chest pain that is consistent with unstable angina. 1. Will obtain labs, cardiac enzymes, chest x-ray, give IV morphine/Zofran and admit to the hospital. TRAVEL OUTSIDE OF THE [place] IN LAST 30 DAYS: No - Related Data Allergies/Adverse Reactions: pseudoephedrine [From Sudafed] Allergy (Verified 04/22/17 15:54) Sulfa (Sulfonamide Antibiotics) Allergy (Verified 04/22/17 15:54) Past Medical History - General Information source: Patient - Social History Smoking Status: Unknown if Ever Smoked Frequency of alcohol use: None Drug Abuse: None Lives with: Family Family History: Hyperlipidemia Patient has suicidal ideation: No Patient has homicidal ideation: No - Past Medical History Cardiac Medical History: Reports: Hx Heart Attack, Hx Hypercholesterolemia, Hx Hypertension Pulmonary Medical History: Reports: None EENT Medical History: Reports: None Neurological Medical History: Reports: None Endocrine Medical History: Reports: Hx Diabetes Mellitus Type 2 Renal/ Medical History: Reports: None. Denies: Hx Peritoneal Dialysis Malignancy Medical History: Reports None GI Medical History: Reports: None Musculoskeletal Medical History: Reports None Skin Medical History: Reports None Psychiatric Medical History: Reports: Hx Post Traumatic Stress Disorder Traumatic Medical History: Reports: None Infectious Medical History: Reports: None Past Surgical History: Reports: Hx Abdominal Surgery, Hx Appendectomy, Hx Cardiac Catheterization, Hx Orthopedic Surgery - right shoulder, bilat knee replacement - Immunizations Immunizations up to date: Yes Hx Diphtheria, Pertussis, Tetanus Vaccination: Yes Physical Exam - Vital signs Vitals: Temp 98.2 F 05/02/18 19:04 Course - Re-evaluation Re-evalutation: 05/02/18 23:29 Labs, including cardiac enzymes, are negative. Chest x-ray also negative. P tegan is admitted to the hospital. - Vital Signs Vital signs: Temp Pulse Resp BP Pulse Ox 98.2 F 17 132/79 H 97 05/02/18 19:04 05/02/18 19:12 05/02/18 19:10 05/02/18 19:12 - Laboratory Result Diagrams: 05/02/18 19:25 05/02/18 19:25 Laboratory results interpreted by me: 05/02/18 05/02/18 19:25 19:25 RBC 3.84 L Hgb 12.7 L Hct 36.3 L Eosinophils % 6.1 H BUN 21 H Creatinine 1.50 H Est GFR ( Amer) 59 L Est GFR (Non-Af Amer) 49 L Glucose 116 H - Diagnostic Test Radiology reviewed: Image reviewed, Reports reviewed - EKG Interpretation by Me EKG shows normal: Sinus rhythm Rate: Normal Rhythm: NSR [place]/QRS: No: Right axis deviation, Left axis deviation, RBBB, LBBB, IVCD, LAHB/LAFB, LPHB/LPFB, Bifasicular block Voltage: No: Increased voltage, Consistant with LVH, Decreased voltage, Throughout, Limb leads P Waves: No: EDMOND, LAE, Absent, AV Dissociation, Other Heart block present: No: 1st Degree, Mobitz 1, Mobitz 2, CHB (3rd degree block) When compared to previous EKG there are: No significant change - Consults Dr. Daniel Time consulted: 23:14 - will admit Consulted provider: will come to ER Discharge - Discharge Clinical Impression: Unstable angina Chest pain Qualifiers: Ischemic chest pain type: unstable angina pectoris Condition: Stable Disposition: ADMITTED INPATIENT Admitting Provider: Hospitalist Unit Admitted: Telemetry Referrals: MARICARMEN JACK MD [Primary Care Provider] - Follow up as needed
[2018-05-02] MEDS ORDERED: MORPHINE SULFATE 10 MG/ML INJ IV ONE (22:28)
[2018-05-02] MEDS ORDERED: NORMAL SALINE 1000 ML 1,000 ML IV ONE (22:28)
[2018-05-02] MEDS ORDERED: LACTULOSE SYRUP 20 GM/30 ML UDCUP PO ONE (23:13)
[2018-05-02] MEDS ORDERED: NITROGLYCERIN 0.4 MG/TAB 25 TAB/BOTTLE SL PRN (23:21)
[2018-05-02] MEDS ORDERED: MAG HYDROX/AL HYDROX/SIMETH SUSP 30 ML UDCUP PO PRN (23:21)
[2018-05-02] MEDS ORDERED: ATORVASTATIN CALCIUM 80 MG TABLET PO SCH (23:30)
[2018-05-03] MEDS ORDERED: HALOPERIDOL 1 MG TABLET PO ONE (02:15)
[2018-05-03] MEDS: GABAPENTIN 400 MG CAPSULE PO SCH ×2 (05:35→15:06)
[2018-05-03] MEDS: HEPARIN SOD (PORCINE) 5,000 UNIT/ML 1 ML SYRINGE SUBCUT SCH ×2 (05:35→15:06)
[2018-05-03] MEDS: HALOPERIDOL 1 MG TABLET PO SCH ×2 (05:35→15:06)
--- NOTE | 2018-05-03 05:59 | PDOC H&P ---
History of Present Illness Admission Date/PCP: 05/02/18 23:27 MARICARMEN JACK MD Patient complains of: Chest pain and palpitations History of Present Illness: JOIE BYRD is a 52 year old male with a past medical history of coronary artery disease and stent of unknown artery in the remote past presents with 6 hours of chest pain. Patient had cardiac catheterization at [facility] only 2 weeks ago finding a complete blockage with good collaterals and 50% blockages that were not bad enough to stent according to records. His pain is described as retrosternal radiating to left shoulder associated with palpitations and shortness of breath. He denies alleviating or exacerbating factors. 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 Past Medical History Cardiac Medical History: Reports: Myocardial Infarction, Hyperlipidema, Hypertension Pulmonary Medical History: Reports: None EENT Medical History: Reports: None Neurological Medical History: Reports: None Endocrine Medical History: Reports: Diabetes Mellitus Type 2 Renal/ Medical History: Reports: None Malignancy Medical History: Reports: None GI Medical History: Reports: None Musculoskeltal Medical History: Reports: None Skin Medical History: Reports: None Psychiatric Medical History: Reports: Post Traumatic Stress Disorder Traumatic Medical History: Reports: None Infectious Medical History: Reports: None Past Surgical History Past Surgical History: Reports: Appendectomy, Cardiac Catheterization, Orthopedic Surgery - right shoulder, bilat knee replacement Social History Information Source: Patient, [facility] Records, Outside Facility Records Lives with: Family Smoking Status: Unknown if Ever Smoked Frequency of Alcohol Use: None Hx Recreational Drug Use: No Drugs: None Hx Prescription Drug Abuse: No - Advance Directive Resuscitation Status: Full Code Family History Family History: Hyperlipidemia Parental Family History Reviewed: Yes Children Family History Reviewed: Yes Sibling(s) Family History Reviewed.: Yes Medication/Allergy Home Medications: Amlodipine Besylate [Norvasc 10 mg Tablet] 10 mg PO DAILY 04/23/17 Aspirin [Aspirin EC] 81 mg PO DAILY 04/23/17 Atorvastatin Calcium [Lipitor 40 mg Tablet] 40 mg PO DAILY 04/23/17 Citalopram Hydrobromide [Celexa 20 mg Tablet] 30 mg PO DAILY 04/23/17 Divalproex Sodium [Divalproex Sodium ER] 250 mg PO BID 04/23/17 Docusate Sodium [Colace 100 mg Capsule] 100 mg PO DAILYP PRN 04/23/17 Doxazosin Mesylate [Cardura 2 mg Tablet] 2 mg PO DAILY 04/23/17 Fluticasone Propionate [Flonase Nasal [place] 50 Mcg/[place] 16 gm] 1 spray NASL DAILY 04/23/17 Gabapentin [Neurontin] 800 mg PO Q8 04/23/17 Haloperidol [Haldol 1 mg Tablet] 1 mg PO Q8 04/23/17 Lisinopril [Prinivil] 20 mg PO DAILY 04/23/17 Metformin HCl [Glucophage 500 mg Tablet] 500 mg PO DAILY 04/23/17 Nitroglycerin [Nitrostat] 0.3 mg SL Q5MP PRN 04/23/17 Ranolazine [Ranexa] 1,000 mg PO BID 04/23/17 Trihexyphenidyl HCl [Artane 2 mg Tablet] 2 mg PO Q6 04/23/17 Allergies/Adverse Reactions: pseudoephedrine [From Sudafed] Allergy (Verified 04/22/17 15:54) Sulfa (Sulfonamide Antibiotics) Allergy (Verified 04/22/17 15:54) Review of Systems Constitutional: ABSENT: chills, fever(s), headache(s), weight gain, weight loss Eyes: ABSENT: visual disturbances Ears: ABSENT: hearing changes Cardiovascular: ABSENT: chest pain, dyspnea on exertion, edema, orthropnea, palpitations Respiratory: ABSENT: cough, hemoptysis Gastrointestinal: ABSENT: abdominal pain, constipation, diarrhea, hematemesis, hematochezia, nausea, vomiting Genitourinary: ABSENT: dysuria, hematuria Musculoskeletal: ABSENT: joint swelling Integumentary: ABSENT: rash, wounds Neurological: ABSENT: abnormal gait, abnormal speech, confusion, dizziness, focal weakness, syncope Psychiatric: ABSENT: anxiety, depression, homidical ideation, suicidal ideation Endocrine: ABSENT: cold intolerance, heat intolerance, polydipsia, polyuria Hematologic/Lymphatic: ABSENT: easy bleeding, easy bruising Physical Exam Vital Signs: Temp Pulse Resp BP Pulse Ox 98.2 F 13 103/66 92 05/02/18 19:04 05/03/18 04:02 05/03/18 04:02 05/03/18 04:02 Intake & Output 05/01/18 05/02/18 05/03/18 11:59 11:59 11:59 Weight 111.13 kg General appearance: PRESENT: no acute distress, well-developed, well-nourished Head exam: PRESENT: atraumatic, normocephalic Eye exam: PRESENT: conjunctiva pink, EOMI, PERRLA. ABSENT: scleral icterus Ear exam: PRESENT: normal external ear exam Mouth exam: PRESENT: moist, tongue midline Neck exam: ABSENT: carotid bruit, JVD, lymphadenopathy, thyromegaly Respiratory exam: PRESENT: clear to auscultation omar. ABSENT: rales, rhonchi, wheezes Cardiovascular exam: PRESENT: RRR. ABSENT: diastolic murmur, rubs, systolic murmur Pulses: PRESENT: normal dorsalis pedis pul Vascular exam: PRESENT: normal capillary refill GI/Abdominal exam: PRESENT: normal bowel sounds, soft. ABSENT: distended, guarding, mass, organolmegaly, rebound, tenderness Rectal exam: PRESENT: deferred Extremities exam: PRESENT: full ROM. ABSENT: calf tenderness, clubbing, pedal edema Neurological exam: PRESENT: alert, awake, oriented to person, oriented to place, oriented to time, oriented to situation, CN II-XII grossly intact. ABSENT: motor sensory deficit Psychiatric exam: PRESENT: appropriate affect, normal mood. ABSENT: homicidal ideation, suicidal ideation Skin exam: PRESENT: dry, intact, warm. ABSENT: cyanosis, rash Results Laboratory Results: 05/02/18 19:25 05/02/18 19:25 05/02/18 05/02/18 05/02/18 19:25 19:25 19:25 WBC 6.2 RBC 3.84 L Hgb 12.7 L Hct 36.3 L MCV 95 MCH 33.1 MCHC 35.0 RDW 13.0 Plt Count 278 Seg Neutrophils % 55.8 Lymphocytes % 25.6 Monocytes % 11.9 Eosinophils % 6.1 H Basophils % 0.6 Absolute Neutrophils 3.5 Absolute Lymphocytes 1.6 Absolute Monocytes 0.7 Absolute Eosinophils 0.4 Absolute Basophils 0.0 Sodium 140.1 Potassium 4.9 Chloride 102 Carbon Dioxide 28 Anion Gap 10 BUN 21 H Creatinine 1.50 H Est GFR ( Amer) 59 L Est GFR (Non-Af Amer) 49 L Glucose 116 H Calcium 9.1 Total Bilirubin 0.3 AST 21 ALT 24 Alkaline Phosphatase 95 Total Protein 6.8 Albumin 4.1 TSH 2.88 05/02/18 05/02/18 05/02/18 19:25 19:25 23:30 Creatine Kinase 92 CK-MB (CK-2) 0.90 Troponin I < 0.012 < 0.012 Impressions: Chest X-Ray 05/02/18 19:07 IMPRESSION: NO ACUTE RADIOGRAPHIC FINDING IN THE CHEST. Assessment & Plan - Diagnosis (1) Chest pain Qualifiers: Ischemic chest pain type: unstable angina pectoris Is this a current diagnosis for this admission?: Yes Plan: Chest pain, cardiology consult, follow-up serial cardiac enzymes. (2) PTSD (post-traumatic stress disorder) Is this a current diagnosis for this admission?: Yes Plan: Haldol scheduled and as needed - Time Time Spent: 30 to 50 Minutes
[2018-05-03 07:35] LABS: CREATINE KINASE MB 0.85 ng/mL (<4.55)
[2018-05-03 07:43] LABS: TROPONIN I < 0.012 ng/mL
--- NOTE | 2018-05-03 09:32 | PDOC PROGRESS REPORT ---
Subjective Progress Note for:: 05/03/18 Subjective:: Patient came to the emergency room because of 4-5 hours of chest pain. Initial EKG and enzymes are negative. Patient has known history of coronary artery disease with prior stent placement and also myocardial infarction. He did have a cardiac cath within the last 2 weeks which had shown a moderate lesion in 1 of the arteries. 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 Patient being treated medically. Patient has significant cardiac risk factors. It was therefore decided to admit him overnight, rule him out for myocardial infarction. Reason For Visit: PALPITATIONS Physical Exam Vital Signs: Temp Pulse Resp BP Pulse Ox 98.1 F 64 16 113/73 97 05/03/18 06:31 05/03/18 06:31 05/03/18 06:31 05/03/18 06:31 05/03/18 06:31 Intake & Output 05/02/18 05/03/18 05/04/18 06:59 06:59 06:59 Intake Total 1000 Balance 1000 Weight 111.13 kg Exam: GENERAL: well-nourished and in no acute distress. Alert and oriented x3 HEAD: Atraumatic, normocephalic. EYES: JUNG, sclera anicteric, conjunctiva are normal. ENT: Moist mucous membranes. No oral ulcerations or bleeding gums noted. No obvious ear, nose or throat abnormalities noted. NECK: supple without lymphadenopathy. Trachea is central. No cervical or axillary lymphadenopathy noted. Carotids are 2+, JVD WNL LUNGS: Breath sounds clear bilaterally. No wheezes rales or rhonchi noted. No significant dullness noted on percussion. CHEST: Palpation of the chest wall shows significant chest wall tenderness. HEART: [place] [employer] REPA[employer]ER, No PSH, 1/6 DINH aortic area, 1/6 yin systolic murmur mitral area, no rubs, no gallops. ABDOMEN: Soft, no significant tenderness appreciated, normoactive bowel sounds. No guarding, no rebound. No rigidity noted . No masses appreciated. EXTREMITIES: Pedal pulses are 1-2+, no calf tenderness noted. No clubbing or cyanosis. negative pedal edema noted NEUROLOGICAL: Focused neurological exam showed no significant neurologic deficit. Normal speech, no focal weakness appreciated. PSYCH: Normal mood, normal affect. Judgment and insight within normal limits. SKIN: No significant ecchymosis, skin is noted to be warm. MUSCULOSKELETAL EXAM: No significant acute joint swelling noted. Results Laboratory Results: 05/02/18 19:25 05/02/18 19:25 05/02/18 05/02/18 05/02/18 19:25 19:25 19:25 WBC 6.2 RBC 3.84 L Hgb 12.7 L Hct 36.3 L MCV 95 MCH 33.1 MCHC 35.0 RDW 13.0 Plt Count 278 Seg Neutrophils % 55.8 Lymphocytes % 25.6 Monocytes % 11.9 Eosinophils % 6.1 H Basophils % 0.6 Absolute Neutrophils 3.5 Absolute Lymphocytes 1.6 Absolute Monocytes 0.7 Absolute Eosinophils 0.4 Absolute Basophils 0.0 Sodium 140.1 Potassium 4.9 Chloride 102 Carbon Dioxide 28 Anion Gap 10 BUN 21 H Creatinine 1.50 H Est GFR ( Amer) 59 L Est GFR (Non-Af Amer) 49 L Glucose 116 H Calcium 9.1 Total Bilirubin 0.3 AST 21 ALT 24 Alkaline Phosphatase 95 Total Protein 6.8 Albumin 4.1 TSH 2.88 05/02/18 05/02/18 05/02/18 19:25 19:25 23:30 Creatine Kinase 92 CK-MB (CK-2) 0.90 Troponin I < 0.012 < 0.012 05/03/18 05/03/18 06:39 06:39 Creatine Kinase 80 CK-MB (CK-2) 0.85 Troponin I < 0.012 EKG Comments: Shows sinus rhythm without any acute ST-T wave changes Impressions: Chest X-Ray 05/02/18 19:07 IMPRESSION: NO ACUTE RADIOGRAPHIC FINDING IN THE CHEST. Assessment & Plan - Diagnosis (1) Atypical chest pain Is this a current diagnosis for this admission?: Yes (2) CAD (coronary artery disease) Qualifiers: Coronary Disease-Associated Artery/Lesion type: [place] artery [place] vs. 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 EKG has been negative. Have ordered for an EKG to be done. If the EKG is negative, patient can be discharged home with close cardiology follow-up with me. In the meantime recommend continuing with statin aspirin, Plavix, beta-rigoberto, and other supportive therapy. Will add Ranexa to the regimen. - Time Time with patient: Greater than 35 minutes Medications reviewed and adjusted accordingly: Yes
[2018-05-03] MEDS ORDERED: FLUTICASONE NASAL SPRAY 50 MCG/SPRY 120 SPRAY/16 GM NASL SCH (10:00)
[2018-05-03] MEDS ORDERED: AMLODIPINE BESYLATE 10 MG TABLET PO SCH (10:00)
[2018-05-03] MEDS ORDERED: ACETAMINOPHEN 325 MG TABLET PO ONE (10:00)
[2018-05-03] MEDS ORDERED: DOCUSATE SODIUM 100 MG CAPSULE PO SCH (10:00)
[2018-05-03] MEDS ORDERED: DIVALPROEX SODIUM 250 MG TAB.SR.24H PO SCH (10:00)
[2018-05-03] MEDS ORDERED: DOXAZOSIN MESYLATE 2 MG TABLET PO SCH (10:00)
[2018-05-03] MEDS ORDERED: LISINOPRIL 10 MG TABLET PO SCH (10:00)
[2018-05-03] MEDS ORDERED: LANSOPRAZOLE 30 MG TAB.RAP.DR PO SCH (10:00)
[2018-05-03] MEDS ORDERED: ASPIRIN 81 MG TABLET, ENT COATED PO SCH (10:00)
[2018-05-03] MEDS ORDERED: METOPROLOL SUCCINATE 25 MG TAB.SR.24H PO SCH (10:00)
[2018-05-03] MEDS ORDERED: CITALOPRAM HYDROBROMIDE 20 MG TABLET PO SCH (10:00)
[2018-05-03] MEDS ORDERED: RANOLAZINE 500 MG TAB.SR.12H PO SCH (10:00)
[2018-05-03 15:12] LABS: CREATINE KINASE MB 0.65 ng/mL (<4.55)
[2018-05-03 15:13] LABS: TROPONIN I < 0.012 ng/mL
[2018-05-03 15:31] VITALS: BP 113/73
[2018-05-03] MEDS ORDERED: TAMSULOSIN HCL 0.4 MG CAP.SR.24H PO SCH (18:00)
--- NOTE | 2018-05-03 21:44 | EKG REPORT ---
SEVERITY:- NORMAL ECG - SINUS RHYTHM : Confirmed by: Jina Tovar 03-May-2018 21:43:39
--- NOTE | 2018-05-03 21:44 | EKG REPORT ---
SEVERITY:- NORMAL ECG - SINUS RHYTHM : Confirmed by: Jina Tovar 03-May-2018 21:43:12
--- NOTE | 2018-05-03 23:08 | PDOC DISCHARGE SUMMARY ---
General - Admit/Disc Date/PCP Admission Date/Primary Care Provider: 05/02/18 23:27 MARICARMEN JACK MD Discharge Date: 05/03/18 - Discharge Diagnosis (1) Atypical chest pain Is this a current diagnosis for this admission?: Yes Summary: Despite an extensive history of coronary disease including a cardiac catheterization 2 weeks ago (no intervention at that time) the patient was having chest pain. He stated that the pain was more on the left side of the chest. It was fairly focal. His cardiac enzymes were undetectable (less than 0.012) for all 3 specimens. I explained that with his recent catheterization it is unlikely that this is cardiac. He will continue his aspirin as well as his other medications and he will see a local personnel associate (Dr. Tovar) tomorrow. (2) CAD (coronary artery disease) Is this a current diagnosis for this admission?: Yes Summary: No evidence of acute cardiac issue. Serial troponins were negative. There are no changes in his EKG. He will follow-up with cardiology tomorrow. The patient was having low blood pressure. I did suggest that he take a small dose of metoprolol and hold his lisinopril completely until he sees Dr. Tovar tomorrow. (3) DM2 (diabetes mellitus, type 2) Is this a current diagnosis for this admission?: Yes Summary: Return to previous regimen. (4) PTSD (post-traumatic stress disorder) Is this a current diagnosis for this admission?: Yes Summary: Continue with current outpatient medication regimen. (5) Gastroesophageal reflux disease Is this a current diagnosis for this admission?: Yes Summary: It is possible that the reflux contributed to his symptoms. He will resume his Ranexa for acid reflux. - Additional Information Resuscitation Status: Full Code Discharge Diet: Cardiac Discharge Activity: Activity As Tolerated, Balance Activity w/Rest Prescriptions: Metoprolol Succinate [Toprol Xl 25 mg Tab.sr] 25 mg PO Q12 30 Days #60 tab.sr.24h Ranolazine [Ranexa 500 mg Tab.sr] 500 mg PO Q12 30 Days #60 tab.sr.12h Home Medications: Amlodipine Besylate [Norvasc 10 mg Tablet] 10 mg PO DAILY 04/23/17 Aspirin [Aspirin EC] 81 mg PO DAILY 04/23/17 Atorvastatin Calcium [Lipitor 40 mg Tablet] 40 mg PO DAILY 04/23/17 Divalproex Sodium [Divalproex Sodium ER] 250 mg PO BID 04/23/17 Docusate Sodium [Colace 100 mg Capsule] 100 mg PO DAILYP PRN 04/23/17 Doxazosin Mesylate [Cardura 2 mg Tablet] 2 mg PO QHS 04/23/17 Fluticasone Propionate [Flonase Nasal [place] 50 Mcg/[place] 16 gm] 1 spray NASL DAILY 04/23/17 Gabapentin [Neurontin] 800 mg PO TID 04/23/17 Haloperidol [Haldol 1 mg Tablet] 1 mg PO DAILY 04/23/17 Nitroglycerin [Nitrostat] 0.3 mg SL Q5MP PRN 04/23/17 Ranolazine [Ranexa] 1,000 mg PO BID 04/23/17 Trihexyphenidyl HCl [Artane 2 mg Tablet] 2 mg PO BID 04/23/17 Citalopram Hydrobromide [Citalopram HBr] 30 mg PO DAILY 05/03/18 Cyanocobalamin (Vitamin B-12) [Vitamin B-12 1000 mcg Tablet] 1,000 mcg PO DAILY 05/03/18 Furosemide [Lasix 20 mg Tablet] 20 mg PO DAILY 05/03/18 Lisinopril [Prinivil 10 mg Tablet] 20 mg PO DAILY tablet 05/03/18 Metoprolol Succinate [Toprol Xl 25 mg Tab.sr] 25 mg PO Q12 30 Days #60 tab.sr.24h 05/03/18 Naproxen [Naprosyn] 500 mg PO BID 05/03/18 Ranolazine [Ranexa 500 mg Tab.sr] 500 mg PO Q12 30 Days #60 tab.sr.12h 05/03/18 History of Present Illness Patient complains of: Left-sided chest pain History of Present Illness: JOIE BYRD is a 52 year old male with a complex cardiac history. He underwent cardiac catheterization at [facility] 2 weeks ago. Lesions were identified but no intervention occurred at the time of that procedure. With his history and symptomatology he was referred to the hospitalist for admission. Hospital Course Hospital Course: Unremarkable hospital course. There were no acute EKG changes. The patient had negative blood work and ruled out for acute coronary episode. He will be seen by Dr. Meijer in his office tomorrow. Physical Exam Vital Signs: Temp Pulse Resp BP Pulse Ox 98.5 F 63 16 113/73 93 05/03/18 15:28 05/03/18 15:28 05/03/18 15:28 05/03/18 15:28 05/03/18 15:28 Intake & Output 05/02/18 05/03/18 05/04/18 06:59 06:59 06:59 Intake Total 1000 Output Total 450 Balance 550 Weight 111.13 kg General appearance: PRESENT: no acute distress, cooperative Head exam: PRESENT: normocephalic Respiratory exam: PRESENT: symmetrical, unlabored. ABSENT: accessory muscle use, rales, rhonchi, wheezes Cardiovascular exam: PRESENT: RRR, +S1, +S2, systolic murmur - 2/6 GI/Abdominal exam: PRESENT: normal bowel sounds, soft. ABSENT: distended, tenderness Extremities exam: ABSENT: pedal edema Musculoskeletal exam: PRESENT: normal inspection Neurological exam: PRESENT: alert, awake, oriented to person, oriented to place, oriented to situation, CN II-XII grossly intact Psychiatric exam: PRESENT: appropriate affect, normal mood. ABSENT: agitated, anxious Focused psych exam: ABSENT: restlessness Results Laboratory Results: 05/02/18 19:25 05/02/18 19:25 05/02/18 19:25 TSH 2.88 05/02/18 05/02/18 05/02/18 19:25 19:25 23:30 Creatine Kinase 92 CK-MB (CK-2) 0.90 Troponin I < 0.012 < 0.012 05/03/18 05/03/18 05/03/18 06:39 06:39 14:05 Creatine Kinase 80 68 CK-MB (CK-2) 0.85 Troponin I < 0.012 05/03/18 14:05 Creatine Kinase CK-MB (CK-2) 0.65 Troponin I < 0.012 Impressions: Chest X-Ray 05/02/18 19:07 IMPRESSION: NO ACUTE RADIOGRAPHIC FINDING IN THE CHEST. Qualifiers - * PATIENT BEING DISCHARGED WITH ANY OF THE FOLLOWING DIAGNOSIS: No Plan Discharge Plan: Discharge to home. Follow-up with local cardiology tomorrow. Time Spent: Greater than 30 Minutes
== END 2018-05-03 15:45 | disposition home or self-care (01) ==
LOC: ER 19:04 → EH 23:27 → 4S 05-03 06:31
PROVIDERS: ADMIT Internal Medicine; ATTEND Internal Medicine
DX: R07.89 Other chest pain (principal); I25.10 Atherosclerotic heart disease of native coronary artery without angina pectoris; I95.9 Hypotension, unspecified; E11.8 Type 2 diabetes mellitus with unspecified complications; F43.10 Post-traumatic stress disorder, unspecified; K21.9 Gastro-esophageal reflux disease without esophagitis; E78.5 Hyperlipidemia, unspecified; G47.33 Obstructive sleep apnea (adult) (pediatric); I25.2 Old myocardial infarction; Z79.82 Long term (current) use of aspirin; Z79.899 Other long term (current) drug therapy; Z95.5 Presence of coronary angioplasty implant and graft; Z90.49 Acquired absence of other specified parts of digestive tract
CPT/HCPCS: 93005 ×2; 99285; 96361; 96374; 36415 ×2; 82553 ×2; 82550 ×2; 84443; 85025; 80053; 84484 ×2; 71045; 93010 ×2; G0378 ×3; A9270 ×7; J1644; J2270; J3490; J7030

== ENCOUNTER → 2018-08-31 | Outpatient (CLI) | payer MEDICARE ==
--- NOTE | 2018-08-31 09:39 | RADIOLOGY REPORT (SQ) ---
EXAM DESCRIPTION: MRI LUMBAR SPINE WITHOUT COMPLETED DATE/TIME: 08/31/2018 9:03 am REASON FOR STUDY: DEGENERATIVE DISC DISEASE (M51.36) M51.36 OTHER INTERVERTEBRAL DISC DEGENERATION, LUMBAR REGION COMPARISON: None available TECHNIQUE: Sagittal and Axial imaging includes T1, T2, STIR and gradient echo sequences. Coronal T2/ HASTE imaging. LIMITATIONS: None. FINDINGS: VISUALIZED UPPER ABDOMEN: Limited evaluation. No acute or suspicious findings suggested. SEGMENTATION: No transitional anatomy. The lowest well-developed disc space is labeled L5-S1. ALIGNMENT: Anatomic. VERTEBRAE: Intact. BONE MARROW: Normal. No marrow replacement or reactive changes. DISC SIGNAL: Disc desiccation and height loss greatest at L5-S1. POSTERIOR ELEMENTS: Generally intact. No pars defect evident. HARDWARE: None in the spine. CORD AND CONUS: Normal in size and signal intensity. Conus medullaris terminates at L1. SOFT TISSUES: No aortic aneurysm seen. No bulky retroperitoneal adenopathy or mass. No paraspinal mas s or fluid. L1-L2: No significant spinal stenosis or exit foraminal stenosis. L2-L3: No significant spinal stenosis or exit foraminal stenosis. L3-L4: No significant spinal stenosis or exit foraminal stenosis. L4-L5: Small broad-based disc bulge and facet and ligamentum flavum hypertrophy causing moderate spin al canal stenosis. Epidural fat and thickening of the posterior longitudinal ligament. This there i s mild right neural foraminal narrowing secondary to facet and disc disease. L5-S1: Disc desiccation and height loss. Small posterior disc bulge, facet hypertrophy and epidural fat with thickening of the posterior longitudinal ligament and resultant moderate canal stenosis. Mi ld bilateral neural foraminal narrowing. LOWER THORACIC: Incompletely imaged. No stenosis seen. SACRUM: Visualized upper sacrum intact. OTHER: No other significant findings. IMPRESSION: 1. Degenerative changes of the lower lumbar spine greatest at L4-5 and L5-S1 with small posterior disc, epidural fat and facet arthropathy resulting in at least moderate spinal canal steno sis, greatest at L4-5. 2. No evidence of acute bony abnormality. No evidence of high-grade neural foraminal narrowing. TECHNICAL DOCUMENTATION: JOB ID: [id number] [employer]- All Rights Reserved Reading location - IP/workstation name: [email or web address]
== END ==
LOC: RAD 08:23
PROVIDERS: ATTEND Family Medicine
DX: M51.36 Other intervertebral disc degeneration, lumbar region (principal)
CPT/HCPCS: 72148

== ENCOUNTER 2018-11-10 06:28 | Observation (INO) | payer MEDICARE ==
[2018-11-10] MEDS ORDERED: ASPIRIN 81 MG TABLET, CHEWABLE PO ONE (06:33)
--- NOTE | 2018-11-10 07:38 | RADIOLOGY REPORT (SQ) ---
EXAM DESCRIPTION: XR CHEST 1 VIEW COMPLETED DATE/TME: 11/10/2018 06:33 CLINICAL HISTORY: 53 years Male, CP COMPARISON:May 02 2018 NUMBER OF VIEWS/TECHNIQUE: 1/AP FINDINGS: Adequate lung volume, clear parenchyma, normal cardiac silhouette, and intact bony thorax. IMPRESSION: No acute cardiopulmonary findings.
[2018-11-10 07:40] LABS: ABSOLUTE BASOPHILS # (AUTO) 0.1 10^3/uL (0.0-0.2); ABSOLUTE EOSINOPHILS # (AUTO) 0.3 10^3/uL (0.0-0.6); ABSOLUTE LYMPHOCYTES (AUTO) 2.3 10^3/uL (0.5-4.7); ABSOLUTE NEUT (AUTO) 6.1 10^3/uL (1.7-8.2); BASOPHILS % (AUTO) 0.6 % (0-2); EOSINOPHILS % (AUTO) 2.9 % (0-6); HEMOGLOBIN 12.5 g/dL (13.5-17.0); LYMPHOCYTES % (AUTO) 23.8 % (13-45); MEAN CORPUSCULAR HEMOGLOBIN 30.4 pg (27.0-33.4); MEAN CORPUSCULAR HGB CONC 34.9 g/dL (32.0-36.0); MEAN CORPUSCULAR VOLUME 87 fl (80-97); MONOCYTES % (AUTO) 10.4 % (3-13); PLATELET COUNT 331 10^3/uL (150-450); RED BLOOD COUNT 4.12 10^6/uL (4.35-5.55); RED CELL DISTRIBUTION WIDTH 14.8 % (11.5-14.0); SEGMENTED NEUTROPHILS % (AUTO) 62.3 % (42-78); TOTAL CELLS COUNTED % (AUTO) 100 %; WHITE BLOOD COUNT 9.7 10^3/uL (4.0-10.5)
[2018-11-10 08:01] LABS: ALBUMIN 3.7 g/dL (3.5-5.0); ALKALINE PHOSPHATASE 133 U/L (38-126); ANION GAP 7 (5-19); ASPARTATE AMINO TRANSFERASE 18 U/L (17-59); BILIRUBIN,DIRECT 0.2 mg/dL (0.0-0.4); BILIRUBIN,TOTAL 0.3 mg/dL (0.2-1.3); BLOOD UREA NITROGEN 16 mg/dL (7-20); CARBON DIOXIDE 28 mmol/L (22-30); CHLORIDE 100 mmol/L (98-107); CREATINE KINASE 64 U/L (55-170); GLUCOSE 92 mg/dL (75-110); POTASSIUM 4.4 mmol/L (3.6-5.0); TOTAL PROTEIN 6.7 g/dL (6.3-8.2)
[2018-11-10 08:13] LABS: CREATINE KINASE MB 0.86 ng/mL (<4.55)
[2018-11-10 08:14] LABS: TROPONIN I < 0.012 ng/mL
--- NOTE | 2018-11-10 08:37 | ER Document Report ---
ED General - General Chief Complaint: Chest Pain Stated Complaint: CHEST PAIN Time Seen by Provider: 11/10/18 08:32 Primary Care Provider: MARICARMEN JACK MD [Primary Care Provider] - Follow up as needed Mode of Arrival: Ambulatory Information source: Patient TRAVEL OUTSIDE OF THE [place] IN LAST 30 DAYS: No - HPI Notes: 53-year-old male with a medical history of coronary artery disease, LA, stent placement, type II diabetic presents to the ED for evaluation of substernal chest pain with dyspnea that started at 530 this morning, reports he took 3 nitro 5 minutes apart without relief. Patient states pain was 7 out of 10, stabbing. Denies any radiation to his arm or to his neck. Was given full dose of baby aspirin on arrival to the ED. Patient did have stent placement back in 2010 when he had an LA. Patient presented to the ED with chest pain back in March 2018, cardiac cath was done in March 2018, noted moderate occlusion in artery, was recommended for stent placement. Patient states he did not get a stent at that time. Patient states he went to [facility] in May 2018, they did put in a new stent and took out his old stent, patient is on a anticoagulant. Patient states that the artery was 100% occluded. Patient is a non-smoker, states his father did pass from an LA at age 75, mother passed from lung cancer. - Related Data Allergies/Adverse Reactions: pseudoephedrine [From Sudafed] Allergy (Verified 11/10/18 06:31) Sulfa (Sulfonamide Antibiotics) Allergy (Verified 11/10/18 06:31) Past Medical History - General Information source: Patient - Social History Smoking Status: Never Smoker Frequency of alcohol use: None Family History: Hyperlipidemia Patient has suicidal ideation: No Patient has homicidal ideation: No - Past Medical History Cardiac Medical History: Reports: Hx Heart Attack, Hx Hypercholesterolemia, Hx Hypertension Endocrine Medical History: Reports: Hx Diabetes Mellitus Type 1, Hx Diabetes Mellitus Type 2 Renal/ Medical History: Denies: Hx Peritoneal Dialysis Psychiatric Medical History: Reports: Hx Depression, Hx Post Traumatic Stress Disorder Past Surgical History: Reports: Hx Abdominal Surgery, Hx Appendectomy, Hx Cardiac Catheterization, Hx Orthopedic Surgery - right shoulder, bilat knee replacement - Immunizations Immunizations up to date: Yes Hx Diphtheria, Pertussis, Tetanus Vaccination: Yes Review of Systems - Review of Systems Constitutional: No symptoms reported EENT: No symptoms reported Cardiovascular: See HPI Respiratory: No symptoms reported Gastrointestinal: No symptoms reported Genitourinary: No symptoms reported Male Genitourinary: No symptoms reported Musculoskeletal: No symptoms reported Skin: No symptoms reported Hematologic/Lymphatic: No symptoms reported Neurological/Psychological: No symptoms reported Physical Exam - Vital signs Vitals: Temp Pulse Resp BP Pulse Ox 98.0 F 63 16 145/87 H 95 11/10/18 06:43 11/10/18 06:43 11/10/18 06:43 11/10/18 06:43 11/10/18 06:43 - Notes Notes: PHYSICAL EXAMINATION: GENERAL: Well-appearing, well-nourished and in no mild distress. HEAD: Atraumatic, normocephalic. EYES: Pupils equal round and reactive to light, extraocular movements intact, sclera anicteric, conjunctiva are normal. ENT: Nares patent, oropharynx clear without exudates. Moist mucous membranes. NECK: Normal range of motion, supple without lymphadenopathy LUNGS: Breath sounds clear to auscultation bilaterally and equal. No wheezes rales or rhonchi. HEART: Regular rate and rhythm without murmurs ABDOMEN: Soft, nontender, nondistended abdomen. No guarding, no rebound. No masses appreciated. Musculoskeletal: Normal range of motion, no pitting or edema. No cyanosis. NEUROLOGICAL: Cranial nerves grossly intact. Normal speech, normal gait. Normal sensory, motor exams PSYCH: Normal mood, normal affect. SKIN: Warm, Dry, normal turgor, no rashes or lesions noted. Course - Re-evaluation Re-evalutation: 11/10/18 10:04 53-year-old male, afebrile vitals stable and in no distress when interviewing patient. Patient's initial set of troponin was negative, chest x-ray unremarkable for acute findings, CBC CMP unremarkable otherwise. Patient states he still having some substernal chest pain, 3 nitros at home did not relieve it. Patient did receive baby aspirin on arrival to the ED. due to patient's history of LA, having current chest pain with recent stent placement, I feel this patient is appropriate for cardiac observation. Spoke with hospitalist, Angie Corral NP who will place patient in cardiac observation for serial troponins and cardiac monitoring for possible echocardiogram and cardiac cath. Pt will be placed on telemetry floor. Patient was agreeable with plan of care and agree with plan of care. Patient's vitals remained stable, patient afebrile and comfortable at this time. - Vital Signs Vital signs: Temp Pulse Resp BP Pulse Ox 98.0 F 63 16 145/87 H 95 11/10/18 06:43 11/10/18 06:43 11/10/18 06:43 11/10/18 06:43 11/10/18 06:43 - Laboratory Result Diagrams: 11/10/18 07:20 11/10/18 07:20 Laboratory results interpreted by me: 11/10/18 11/10/18 07:20 07:20 RBC 4.12 L Hgb 12.5 L Hct 36.0 L RDW 14.8 H Sodium 135.2 L Alkaline Phosphatase 133 H Discharge - Discharge Clinical Impression: Chest pain, CAD (coronary artery disease), DM2 (diabetes mellitus, type 2) Condition: Stable Disposition: ADMITTED OBSERVATION Admitting Provider: Dut (Hospitalist) Unit Admitted: Telemetry Referrals: MARICARMEN JACK MD [Primary Care Provider] - Follow up as needed
[2018-11-10] MEDS ORDERED: MORPHINE SULFATE 10 MG/ML INJ IV ONE (09:51)
[2018-11-10] MEDS ORDERED: ACETAMINOPHEN 325 MG TABLET PO PRN (10:44)
[2018-11-10] MEDS ORDERED: ONDANSETRON HCL INJ/PF 4 MG/2 ML SDV IV PRN (10:44)
[2018-11-10] MEDS ORDERED: NITROGLYCERIN 0.4 MG/TAB 25 TAB/BOTTLE SL PRN (10:44)
[2018-11-10] MEDS ORDERED: GLUCAGON,HUMAN RECOMB 1 MG INJ IM PRN (10:51)
[2018-11-10] MEDS ORDERED: DEXTROSE 40% GEL 15 GM TUBE PO PRN ×2 (10:51)
[2018-11-10] MEDS ORDERED: DEXTROSE 50%-WATER 25 GM/50 ML DISP.SYRIN IV PRN ×2 (10:51)
--- NOTE | 2018-11-10 11:23 | EKG REPORT ---
SEVERITY:- NORMAL ECG - SINUS RHYTHM : Confirmed by: Jina Tovar 10-Nov-2018 11:22:19
--- NOTE | 2018-11-10 11:23 | EKG REPORT ---
SEVERITY:- NORMAL ECG - SINUS RHYTHM : Confirmed by: Jina Tovar 10-Nov-2018 11:22:15
[2018-11-10 11:39] LABS: HEMATOCRIT 36.6 % (37.9-51.0); HEMOGLOBIN 12.6 g/dL (13.5-17.0); MEAN CORPUSCULAR HEMOGLOBIN 30.1 pg (27.0-33.4); MEAN CORPUSCULAR HGB CONC 34.5 g/dL (32.0-36.0); MEAN CORPUSCULAR VOLUME 87 fl (80-97); PLATELET COUNT 321 10^3/uL (150-450); RED BLOOD COUNT 4.19 10^6/uL (4.35-5.55); RED CELL DISTRIBUTION WIDTH 14.4 % (11.5-14.0); WHITE BLOOD COUNT 10.6 10^3/uL (4.0-10.5)
[2018-11-10 11:59] LABS: ANION GAP 6 (5-19); BLOOD UREA NITROGEN 16 mg/dL (7-20); CALCIUM 9.1 mg/dL (8.4-10.2); CARBON DIOXIDE 30 mmol/L (22-30); CHLORIDE 101 mmol/L (98-107); GLUCOSE 93 mg/dL (75-110); POTASSIUM 4.4 mmol/L (3.6-5.0)
[2018-11-10] MEDS: INSULIN LISPRO 100 UNIT/ML 3 ML VIAL SUBCUT SCH ×3 (12:35→21:11)
[2018-11-10] MEDS: ENOXAPARIN SODIUM INJ 120 MG/0.8 ML DISP.SYRIN SUBCUT SCH ×2 (13:12→21:18)
[2018-11-10] MEDS: RANOLAZINE 500 MG TAB.SR.12H PO SCH ×2 (13:12→21:21)
[2018-11-10] MEDS ORDERED: (PENDING PHARMACY ID) (Naproxen [Naproxen] 500 MG) PO PRN ×2 (15:08→15:17)
[2018-11-10] MEDS ORDERED: GINKGO PO SCH (16:00)
[2018-11-10] MEDS ORDERED: FOLIC PO SCH (16:00)
[2018-11-10] MEDS ORDERED: EAC PO SCH (16:00)
[2018-11-10] MEDS ORDERED: MV MINS PO SCH (16:00)
[2018-11-10] MEDS ORDERED: [UNRECOGNIZED DRUG - OTHER] PO SCH (16:00)
[2018-11-10] MEDS ORDERED: LYCOPENE PO SCH (16:00)
[2018-11-10] MEDS: TRAMADOL HCL 50 MG TABLET PO PRN ×2 (16:25→23:41)
[2018-11-10] MEDS: DIVALPROEX SODIUM 250 MG TABLET.DR PO SCH (17:15)
[2018-11-10] MEDS: PANTOPRAZOLE SODIUM 40 MG TABLET.DR PO SCH (17:15)
[2018-11-10] MEDS: FLUTICASONE NASAL SPRAY 50 MCG/SPRY 120 SPRAY/16 GM NASL SCH (18:07)
[2018-11-10] MEDS: TRIHEXYPHENIDYL HCL 2 MG TABLET PO SCH (18:07)
--- NOTE | 2018-11-10 18:37 | PDOC H&P ---
History of Present Illness Admission Date/PCP: 11/10/18 10:24 MARICARMEN JACK MD Patient complains of: chest pain History of Present Illness: JOIE BYRD is a 53 year old male with a past medical history of NV, CAD, DM 2, MICHAEL, GERD, and PTSD who presented to the emergency department today with a complaint of substernal chest pain that woke him from sleep this morning and was unrelieved by 3 tabs of SL nitro. Patient denies alleviating or aggravating factors; reports that the pain spontaneously abated prior to arrival to the emergency department. The pain is described as stabbing, nonradiating, and similar to chest pain that he has had in the past prompting a cardiac cath. It is unclear whether or not the patient received interventional stenting at that time; have requested cath report from [facility]. Evaluation in the emergency department is unremarkable with essentially normal vital signs, mild anemia (hemoglobin 12.5), normal chemistry, and negative troponin x2. EKG demonstrates sinus rhythm and chest x-ray is negative for [place] cardiopulmonary findings. Given the patient's multiple risk factors, the patient is referred to the hospitalist service for chest pain rule out. Past Medical History Cardiac Medical History: Reports: Myocardial Infarction, Hyperlipidema, Hypertension Endocrine Medical History: Reports: Diabetes Mellitus Type 2, Obesity Renal/ Medical History: Reports: None Malignancy Medical History: Reports: None GI Medical History: Reports: Gastroesophageal Reflux Disease Musculoskeltal Medical History: Reports: None Psychiatric Medical History: Reports: Depression, Post Traumatic Stress Disorder Hematology: Reports: Anemia Infectious Medical History: Reports: None Past Surgical History Past Surgical History: Reports: Appendectomy, Cardiac Catheterization, Orthopedic Surgery - right shoulder, bilat knee replacement Social History Information Source: Patient Lives with: Alone Smoking Status: Never Smoker Frequency of Alcohol Use: Occasional Hx Recreational Drug Use: No Drugs: None Hx Prescription Drug Abuse: No - Advance Directive Resuscitation Status: Full Code Family History Family History: Hyperlipidemia Parental Family History Reviewed: Yes Children Family History Reviewed: Yes Sibling(s) Family History Reviewed.: Yes Medication/Allergy Home Medications: Amlodipine Besylate [Norvasc 10 mg Tablet] 10 mg PO DAILY 11/10/18 Aspirin [Adult Aspirin Regimen] 81 mg PO DAILY 11/10/18 Atorvastatin Calcium [Lipitor 80 mg Tablet] 80 mg PO QHS 11/10/18 Citalopram Hydrobromide [Celexa 10 mg Tablet] 10 mg PO DAILY 11/10/18 Divalproex Sodium 250 mg PO BID 11/10/18 Docusate Sodium [Colace] 100 mg PO QAM 11/10/18 Doxazosin Mesylate [Cardura 2 mg Tablet] 2 mg PO QHS 11/10/18 Fluticasone Propionate [Flonase Nasal [place] 50 Mcg/[place] 16 gm] 1 spray NASL BID 11/10/18 Furosemide [Lasix 20 mg Tablet] 20 mg PO QAM 11/10/18 Gabapentin [Neurontin] 800 mg PO TID 11/10/18 Haloperidol [Haldol 5 mg Tablet] 0.5 mg PO DAILY 11/10/18 Lisinopril [Prinivil] 20 mg PO DAILY 11/10/18 Metoprolol Succinate [Toprol Xl 25 mg Tab.sr] 25 mg PO QAM 11/10/18 Mv-Mins/Folic/Lycopene/Ginkgo [One Daily For Men 50+ Adv Tab] 1 each PO DAILY 0 11/10/18 Naproxen 500 mg PO BID 11/10/18 Nitroglycerin [Nitrostat 0.4 mg (1/150 Gr) Tabs 25/Bottle] 1 tab SL Q5MP PRN 11/10/18 Trihexyphenidyl HCl [Artane 2 mg Tablet] 2 mg PO BID 11/10/18 Allergies/Adverse Reactions: pseudoephedrine [From Sudafed] Allergy (Verified 11/10/18 06:31) Sulfa (Sulfonamide Antibiotics) Allergy (Verified 11/10/18 06:31) Review of Systems Constitutional: ABSENT: chills, fever(s), headache(s), weight gain, weight loss Eyes: ABSENT: visual disturbances Ears: ABSENT: hearing changes Cardiovascular: PRESENT: as per HPI Respiratory: ABSENT: cough, hemoptysis Gastrointestinal: ABSENT: abdominal pain, constipation, diarrhea, hematemesis, hematochezia, nausea, vomiting Genitourinary: ABSENT: dysuria, hematuria Musculoskeletal: ABSENT: joint swelling Integumentary: ABSENT: rash, wounds Neurological: ABSENT: abnormal gait, abnormal speech, confusion, dizziness, focal weakness, syncope Psychiatric: ABSENT: anxiety, depression, homidical ideation, suicidal ideation Endocrine: ABSENT: cold intolerance, heat intolerance, polydipsia, polyuria Hematologic/Lymphatic: ABSENT: easy bleeding, easy bruising Physical Exam Vital Signs: Temp Pulse Resp BP Pulse Ox 97.9 F 60 16 121/77 96 11/10/18 14:44 11/10/18 14:44 11/10/18 14:44 11/10/18 14:44 11/10/18 14:44 Intake & Output 11/09/18 11/10/18 11/11/18 06:59 06:59 06:59 Intake Total 680 Balance 680 Weight 109.3 kg General appearance: PRESENT: no acute distress, cooperative, obese, well- developed, well-nourished Head exam: PRESENT: atraumatic, normocephalic Eye exam: PRESENT: conjunctiva pink, EOMI, PERRLA. ABSENT: scleral icterus Ear exam: PRESENT: normal external ear exam Mouth exam: PRESENT: moist, tongue midline Neck exam: ABSENT: carotid bruit, JVD, lymphadenopathy, thyromegaly Respiratory exam: PRESENT: clear to auscultation omar, symmetrical, unlabored. ABSENT: rales, rhonchi, wheezes Cardiovascular exam: PRESENT: RRR, +S1, +S2. ABSENT: diastolic murmur, rubs, systolic murmur Pulses: PRESENT: normal dorsalis pedis pul Vascular exam: PRESENT: normal capillary refill GI/Abdominal exam: PRESENT: normal bowel sounds, soft. ABSENT: distended, guarding, mass, organolmegaly, rebound, tenderness Rectal exam: PRESENT: deferred Extremities exam: PRESENT: full ROM. ABSENT: calf tenderness, clubbing, pedal edema Neurological exam: PRESENT: alert, awake, oriented to person, oriented to place, oriented to time, oriented to situation, CN II-XII grossly intact. ABSENT: motor sensory deficit Psychiatric exam: PRESENT: normal mood, unusual affect. ABSENT: homicidal ideation, suicidal ideation Skin exam: PRESENT: dry, intact, warm. ABSENT: cyanosis, rash Results Laboratory Results: 11/10/18 11:25 11/10/18 11:25 11/10/18 11/10/18 11/10/18 07:20 07:20 11:25 WBC 9.7 10.6 H RBC 4.12 L 4.19 L Hgb 12.5 L 12.6 L Hct 36.0 L 36.6 L MCV 87 87 MCH 30.4 30.1 MCHC 34.9 34.5 RDW 14.8 H 14.4 H Plt Count 331 321 Seg Neutrophils % 62.3 Lymphocytes % 23.8 Monocytes % 10.4 Eosinophils % 2.9 Basophils % 0.6 Absolute Neutrophils 6.1 Absolute Lymphocytes 2.3 Absolute Monocytes 1.0 Absolute Eosinophils 0.3 Absolute Basophils 0.1 Sodium 135.2 L Potassium 4.4 Chloride 100 Carbon Dioxide 28 Anion Gap 7 BUN 16 Creatinine 0.94 Est GFR ( Amer) > 60 Est GFR (Non-Af Amer) > 60 Glucose 92 Calcium 9.0 Total Bilirubin 0.3 AST 18 Alkaline Phosphatase 133 H Total Protein 6.7 Albumin 3.7 11/10/18 11:25 WBC RBC Hgb Hct MCV MCH MCHC RDW Plt Count Seg Neutrophils % Lymphocytes % Monocytes % Eosinophils % Basophils % Absolute Neutrophils Absolute Lymphocytes Absolute Monocytes Absolute Eosinophils Absolute Basophils Sodium 136.6 L Potassium 4.4 Chloride 101 Carbon Dioxide 30 Anion Gap 6 BUN 16 Creatinine 0.90 Est GFR ( Amer) > 60 Est GFR (Non-Af Amer) > 60 Glucose 93 Calcium 9.1 Total Bilirubin AST Alkaline Phosphatase Total Protein Albumin 11/10/18 11/10/18 11/10/18 07:20 07:20 11:25 Creatine Kinase 64 CK-MB (CK-2) 0.86 Troponin I < 0.012 < 0.012 Impressions: Chest X-Ray 11/10/18 06:33 IMPRESSION: No acute cardiopulmonary findings. Assessment and Plan - Diagnosis (1) Chest pain Qualifiers: Chest pain type: unspecified Qualified Code(s): R07.9 - Chest pain, unspecified Is this a current diagnosis for this admission?: Yes Plan: Patient is admitted to the medical floor and continuous cardiac telemetry. We will continue to trend troponins. We will check thyroid panel, A1c, and lipid panel for risk stratification. Have requested cardiac cath report from [facility] to the medical record. Plan for nuclear stress testing in the morning. He is placed on full dose Lovenox. Continue daily aspirin and statin therapy. Resume his home antihypertensive regiment. Start Ranexa every 12 hours. PPI for reflux symptoms. (2) CAD (coronary artery disease) Qualifiers: Coronary Disease-Associated Artery/Lesion type: unspecified vessel or lesion type Is this a current diagnosis for this admission?: Yes Plan: Patient reports he had a cardiac cath at [facility] in April 2018; gives contradictory history regarding possible stenting. Have requested records. Remaining management as above. (3) DM2 (diabetes mellitus, type 2) Qualifiers: Diabetes mellitus retirement insulin use: without retirement use Is this a current diagnosis for this admission?: Yes Plan: A1c 6.1%. Cardiac/consistent carb diet. Accu-Cheks before meals and at bedtime with Humalog for sliding scale coverage. (4) Gastroesophageal reflux disease Is this a current diagnosis for this admission?: Yes Plan: Protonix twice daily. (5) PTSD (post-traumatic stress disorder) Is this a current diagnosis for this admission?: Yes Plan: Continue home medication regiment. - Time Time Spent with patient: 35 or more minutes Medications reviewed and adjusted accordingly: Yes Anticipated discharge: Home Within: within 24 hours
[2018-11-10] MEDS: GABAPENTIN 400 MG CAPSULE PO SCH (21:18)
[2018-11-10] MEDS ORDERED: DOXAZOSIN MESYLATE 2 MG TABLET PO SCH (22:00)
[2018-11-10] MEDS ORDERED: ATORVASTATIN CALCIUM 40 MG TABLET PO SCH (22:00)
[2018-11-10] MEDS ORDERED: ATORVASTATIN CALCIUM 20 MG TABLET PO SCH (22:00)
[2018-11-10] MEDS ORDERED: ATORVASTATIN CALCIUM 80 MG TABLET PO SCH (22:00)
[2018-11-11 04:27] LABS: HEMATOCRIT 39.1 % (37.9-51.0); HEMOGLOBIN 13.2 g/dL (13.5-17.0); MEAN CORPUSCULAR HEMOGLOBIN 29.6 pg (27.0-33.4); MEAN CORPUSCULAR HGB CONC 33.8 g/dL (32.0-36.0); MEAN CORPUSCULAR VOLUME 87 fl (80-97); PLATELET COUNT 324 10^3/uL (150-450); RED BLOOD COUNT 4.48 10^6/uL (4.35-5.55); RED CELL DISTRIBUTION WIDTH 14.5 % (11.5-14.0); WHITE BLOOD COUNT 8.9 10^3/uL (4.0-10.5)
[2018-11-11 04:45] LABS: CHOLESTEROL 178.94 mg/dL (0-200); TRIGLYCERIDES 276 mg/dL (<150)
[2018-11-11 04:56] LABS: DIRECT LDL 115 mg/dL (<100)
[2018-11-11 05:00] LABS: VLDL CHOLESTEROL 55.2 mg/dL (10-31)
[2018-11-11] MEDS: GABAPENTIN 400 MG CAPSULE PO SCH ×2 (05:16→13:46)
[2018-11-11] MEDS: PANTOPRAZOLE SODIUM 40 MG TABLET.DR PO SCH (05:16)
[2018-11-11] MEDS: INSULIN LISPRO 100 UNIT/ML 3 ML VIAL SUBCUT SCH ×2 (07:52→11:49)
[2018-11-11] MEDS ORDERED: METOPROLOL SUCCINATE 25 MG TAB.SR.24H PO SCH (08:00)
[2018-11-11] MEDS ORDERED: FUROSEMIDE 20 MG TABLET PO SCH (08:00)
[2018-11-11] MEDS ORDERED: DOCUSATE SODIUM 100 MG CAPSULE PO SCH (08:00)
[2018-11-11] MEDS ORDERED: ASPIRIN 81 MG TABLET, ENT COATED PO SCH (10:00)
[2018-11-11] MEDS ORDERED: (PENDING PHARMACY ID) (Lisinopril [Prinivil] 20 MG) PO SCH (10:00)
[2018-11-11] MEDS ORDERED: LYCOPENE PO SCH (10:00)
[2018-11-11] MEDS ORDERED: [UNRECOGNIZED DRUG - OTHER] PO SCH (10:00)
[2018-11-11] MEDS ORDERED: GINKGO PO SCH (10:00)
[2018-11-11] MEDS ORDERED: HALOPERIDOL 5 MG TABLET PO SCH (10:00)
[2018-11-11] MEDS ORDERED: FOLIC PO SCH (10:00)
[2018-11-11] MEDS ORDERED: CITALOPRAM HYDROBROMIDE 20 MG TABLET PO SCH (10:00)
[2018-11-11] MEDS ORDERED: EAC PO SCH (10:00)
[2018-11-11] MEDS ORDERED: HALOPERIDOL 0.5 MG TABLET PO SCH (10:00)
[2018-11-11] MEDS ORDERED: MV MINS PO SCH (10:00)
[2018-11-11] MEDS ORDERED: AMLODIPINE BESYLATE 10 MG TABLET PO SCH (10:00)
[2018-11-11] MEDS ORDERED: LISINOPRIL 10 MG TABLET PO SCH (10:00)
[2018-11-11] MEDS ORDERED: (PENDING PHARMACY ID) (Citalopram Hydrobromide [Celexa 10 Mg Tablet] 10 MG) PO SCH (10:00)
[2018-11-11] MEDS: DIVALPROEX SODIUM 250 MG TABLET.DR PO SCH (11:41)
[2018-11-11] MEDS: TRIHEXYPHENIDYL HCL 2 MG TABLET PO SCH (11:43)
[2018-11-11] MEDS: RANOLAZINE 500 MG TAB.SR.12H PO SCH (11:43)
[2018-11-11] MEDS: FLUTICASONE NASAL SPRAY 50 MCG/SPRY 120 SPRAY/16 GM NASL SCH (11:44)
[2018-11-11] MEDS: ENOXAPARIN SODIUM INJ 120 MG/0.8 ML DISP.SYRIN SUBCUT SCH (11:44)
[2018-11-11] MEDS ORDERED: REGADENOSON INJ 0.4 MG/5 ML DISP.SYRIN IV ONE (12:22)
[2018-11-11] MEDS ORDERED: NAPROXEN 250 MG TABLET PO PRN (15:31)
[2018-11-11 15:36] VITALS: BP 123/82
--- NOTE | 2018-11-11 16:44 | PDOC DISCHARGE SUMMARY ---
General - Admit/Disc Date/PCP Admission Date/Primary Care Provider: 11/10/18 10:24 MARICARMEN JACK MD Discharge Date: 11/11/18 - Discharge Diagnosis (1) Chest pain Is this a current diagnosis for this admission?: Yes Summary: Patient presented with atypical chest pain symptoms but with multiple risk factors and so was admitted to the medical floor on continuous cardiac telemetry for chest pain rule out. Chest x-ray and EKG were benign. Troponins were negative x3. TSH is acceptable. A1c is 6.1%. Lipid panel shows triglycerides 276, LDL 115, HDL 47, total cholesterol 178. Nuclear stress testing obtained today; spoke with Dr. Tapia, normal findings. At time of dictation formalize report is pending. Patient remained in normal sinus rhythm via telemetry. The patient was managed with full dose Lovenox while admitted. He is daily aspirin, statin therapy, and and home antihypertensive regiment were continued. Patient was started on Ranexa 500 mg every 12 hours and Protonix for possible reflux symptoms as source of his chest discomfort. At time of discharge, patient is in stable condition. He is discharged home with self-care. He is advised to follow-up with his primary care provider within 1 week and with his business database analyst within 1-2 months. He is instructed to take his medications as prescribed. He is instructed to return to the emergency department as needed for concerning symptoms. (2) CAD (coronary artery disease) Is this a current diagnosis for this admission?: Yes Summary: Aspirin, statin, antihypertensive therapy continued. (3) DM2 (diabetes mellitus, type 2) Is this a current diagnosis for this admission?: Yes Summary: A1c 6.1%. Continue dietary and lifestyle management. (4) Gastroesophageal reflux disease Is this a current diagnosis for this admission?: Yes Summary: Continue twice daily Protonix. Long discussion had with patient about monitoring for reflux symptoms and decreasing offending foods (high fatty foods, acidic foods, late night eating). (5) PTSD (post-traumatic stress disorder) Is this a current diagnosis for this admission?: Yes Summary: Continue home medication regiment. - Additional Information Resuscitation Status: Full Code Discharge Diet: Cardiac, Diabetic Discharge Activity: Activity As Tolerated, Balance Activity w/Rest Prescriptions: RX: Pantoprazole Sodium [Protonix [address] Tablet] 40 mg PO BID@0600,1700 #60 tablet. RX: Ranolazine [Ranexa 500 mg Tab.sr] 500 mg PO Q12 #60 tab.sr.12h Home Medications: RX: Amlodipine Besylate [Norvasc 10 mg Tablet] 10 mg PO DAILY 11/10/18 RX: Aspirin [Adult Aspirin Regimen] 81 mg PO DAILY 11/10/18 RX: Atorvastatin Calcium [Lipitor 80 mg Tablet] 80 mg PO QHS 11/10/18 RX: Citalopram Hydrobromide [Celexa 10 mg Tablet] 10 mg PO DAILY 11/10/18 RX: Divalproex Sodium 250 mg PO BID 11/10/18 RX: Docusate Sodium [Colace] 100 mg PO QAM 11/10/18 RX: Doxazosin Mesylate [Cardura 2 mg Tablet] 2 mg PO QHS 11/10/18 RX: Fluticasone Propionate [Flonase Nasal [place] 50 Mcg/[place] 16 gm] 1 spray NASL BID 11/10/18 RX: Furosemide [Lasix 20 mg Tablet] 20 mg PO QAM 11/10/18 RX: Gabapentin [Neurontin] 800 mg PO TID 11/10/18 RX: Haloperidol [Haldol 5 mg Tablet] 0.5 mg PO DAILY 11/10/18 RX: Lisinopril [Prinivil] 20 mg PO DAILY 11/10/18 RX: Metoprolol Succinate [Toprol Xl 25 mg Tab.sr] 25 mg PO QAM 11/10/18 RX: Mv-Mins/Folic/Lycopene/Ginkgo [One Daily For Men 50+ Adv Tab] 1 each PO DAILY 11/10/18 RX: Naproxen 500 mg PO BID 11/10/18 RX: Nitroglycerin [Nitrostat 0.4 mg (1/150 Gr) Tabs 25/Bottle] 1 tab SL Q5MP PRN 11/10/18 RX: Trihexyphenidyl HCl [Artane 2 mg Tablet] 2 mg PO BID 11/10/18 RX: Acetaminophen [Tylenol 325 mg Tablet] 650 mg PO Q4HP PRN tablet 11/11/18 RX: Pantoprazole Sodium [Protonix [address] Tablet] 40 mg PO BID@0600,1700 #60 ta blet. 11/11/18 RX: Ranolazine [Ranexa 500 mg Tab.sr] 500 mg PO Q12 #60 tab.sr.12h 11/11/18 History of Present Illness History of Present Illness: JOIE BYRD is a 53 year old male with a past medical history of [place], CAD, DM 2, MICHAEL, GERD, and PTSD who presented to the emergency department today with a complaint of substernal chest pain that woke him from sleep this morning and was unrelieved by 3 tabs of SL nitro. Patient denies alleviating or aggravating factors; reports that the pain spontaneously abated prior to arrival to the emergency department. The pain is described as stabbing, nonradiating, and similar to chest pain that he has had in the past prompting a cardiac cath. It is unclear whether or not the patient received interventional stenting at that time; have requested cath report from [facility]. Evaluation in the emergency department is unremarkable with essentially normal vital signs, mild anemia (hemoglobin 12.5), normal chemistry, and negative troponin x2. EKG demonstrates sinus rhythm and chest x-ray is negative for acute cardiopulmonary findings. Given the patient's multiple risk factors, the patient is referred to the hospitalist service for chest pain rule out. Physical Exam Vital Signs: Temp Pulse Resp BP Pulse Ox 98.0 F 82 18 123/82 96 11/11/18 15:34 11/11/18 15:34 11/11/18 15:34 11/11/18 15:34 11/11/18 15:34 Intake & Output 11/10/18 11/11/18 11/12/18 06:59 06:59 06:59 Intake Total 1380 Balance 1380 Weight 109.3 kg 97 kg General appearance: PRESENT: no acute distress, cooperative, well-developed, well-nourished - overweight Head exam: PRESENT: atraumatic, normocephalic Eye exam: PRESENT: conjunctiva pink, EOMI, PERRLA. ABSENT: scleral icterus Ear exam: PRESENT: normal external ear exam Mouth exam: PRESENT: moist, tongue midline Neck exam: ABSENT: carotid bruit, JVD, lymphadenopathy, thyromegaly Respiratory exam: PRESENT: clear to auscultation omar, symmetrical, unlabored. ABSENT: rales, rhonchi, wheezes Cardiovascular exam: PRESENT: RRR, +S1, +S2. ABSENT: diastolic murmur, rubs, systolic murmur Pulses: PRESENT: normal dorsalis pedis pul Vascular exam: PRESENT: normal capillary refill GI/Abdominal exam: PRESENT: normal bowel sounds, soft. ABSENT: distended, guarding, mass, organolmegaly, rebound, tenderness Rectal exam: PRESENT: deferred Extremities exam: PRESENT: full ROM. ABSENT: calf tenderness, clubbing, pedal edema Musculoskeletal exam: PRESENT: ambulatory Neurological exam: PRESENT: alert, awake, oriented to person, oriented to place, oriented to time, oriented to situation, CN II-XII grossly intact. ABSENT: motor sensory deficit Psychiatric exam: PRESENT: appropriate affect, normal mood. ABSENT: homicidal ideation, suicidal ideation Skin exam: PRESENT: dry, intact, warm. ABSENT: cyanosis, rash Results Laboratory Results: 11/11/18 04:01 11/10/18 11:25 11/11/18 11/11/18 11/11/18 04:01 04:01 04:01 WBC 8.9 RBC 4.48 Hgb 13.2 L Hct 39.1 MCV 87 MCH 29.6 MCHC 33.8 RDW 14.5 H Plt Count 324 Triglycerides 276 H Cholesterol 178.94 LDL Cholesterol Direct 115 H VLDL Cholesterol 55.2 H HDL Cholesterol 47 TSH 2.00 11/10/18 11/10/18 11/10/18 07:20 07:20 11:25 Creatine Kinase 64 CK-MB (CK-2) 0.86 Troponin I < 0.012 < 0.012 11/10/18 22:55 Creatine Kinase CK-MB (CK-2) Troponin I < 0.012 Impressions: Chest X-Ray 11/10/18 06:33 IMPRESSION: No acute cardiopulmonary findings. Qualifiers - * PATIENT BEING DISCHARGED WITH ANY OF THE FOLLOWING DIAGNOSIS: No Acute Heart Failure - Is this a Heart Failure Patient?: No Plan Discharge Plan: Discharge to home with self-care. Follow-up with primary care provider within 1 week. Follow-up with cardiology within 1 to 2 months; patient interested in referral to new business database analyst. He is provided Dr. Tapia's contact information. Take medications as prescribed. Return to the emergency department as needed for concerning symptoms. Time Spent: Greater than 30 Minutes
[2018-11-12] MEDS ORDERED: MULTIVITAMIN TABLET PO SCH (10:00)
--- NOTE | 2018-11-13 21:47 | DRAGON STRESS TEST REPORT ---
Intravenous Lexiscan Cardiolite stress test using single photon emmision computerized tomography. Date of procedure: 11/11/2018. Ordering Provider: Ms. Angie Farmer Patient's status: Inpatient. Indication: Chest pain the patient with history of coronary artery disease, and history of LAD stent. Coronary risk factors: Age, diabetes mellitus, hypertension, and dyslipidemia. Resting EKG: Sinus Rhythm. Poor R wave leads V1 to V6 Stress EKG: No changes of ischemia. The patient has no chest pain or discomfort, and there were no arrhythmias seen. Reason for termination: Protocol. Conclusions: Normal EKG and hemodynamic response to IV Lexiscan. Nuclear data: At rest the patient was given 14.88 millicuries of technetium 99m sestamibi injected intravenously. As per protocol rest non gated SPECT images were obtained. Subsequently the patient was given intravenous Lexiscan at a dose of 0.4 mg in 5 mL intravenously, followed by flush with normal saline. Subsequently the stress dose of 46.5 millicuries of technetium 99m sestamibi was injected intravenously. As per protocol stress gated images were obtained. Nuclear interpretation: Review of images showed that there is significant motion artifact. In spite of this all segments of the myocardium had normal perfusion at rest, and normal perfusion post stress with IV Lexiscan. All segments of the myocardium had normal motion, contraction, and thickening by gated study. T. I D. ratio was normal at 1.12. There is no transient ischemic dilatation of the left ventricle. Computer read rest, and stress left ventricular ejection fraction were 50 %, and 40 %, respectively. Visually both the stress and rest ejection fractions were normal, and greater than 55%. Conclusion: 1. There is no scintigraphic evidence of Lexiscan induced myocardial ischemia. 2. There is no scintigraphic evidence of myocardial infarction/scar. Recommendations: 1. Aggressive treatment of coronary artery disease. 2. Aggressive risk factor modification, and treating the underlying co- morbidities. 3. Close cardiology outpatient follow-up. PAOLA
== END 2018-11-11 16:18 | disposition home or self-care (01) ==
LOC: ER 06:28 → EH 10:24 → 4N 12:45
PROVIDERS: ADMIT Family Medicine; ATTEND Family Medicine
DX: R07.89 Other chest pain (principal); E11.9 Type 2 diabetes mellitus without complications; K21.9 Gastro-esophageal reflux disease without esophagitis; I25.10 Atherosclerotic heart disease of native coronary artery without angina pectoris; F43.10 Post-traumatic stress disorder, unspecified; E78.5 Hyperlipidemia, unspecified; E66.9 Obesity, unspecified; R06.00 Dyspnea, unspecified; Z79.82 Long term (current) use of aspirin; I25.2 Old myocardial infarction; Z79.899 Other long term (current) drug therapy; Z90.49 Acquired absence of other specified parts of digestive tract; Z95.5 Presence of coronary angioplasty implant and graft; Z79.01 Long term (current) use of anticoagulants; Z82.49 Family history of ischemic heart disease and other diseases of the circulatory system; Z80.1 Family history of malignant neoplasm of trachea, bronchus and lung
CPT/HCPCS: 93005; 99285; 96374; 36415 ×2; 82553; 82962 ×2; 82550; 84443; 85025; 85027; 80053; 84484; 83036; 80061; 93017; 71045; 78452; 93010; G0378 ×3; A9500; J2785; A9270 ×21; J1650 ×2; J2270; J3490 ×3; Q9969

== ENCOUNTER → 2019-01-03 | Outpatient (CLI) | payer MEDICARE | LOC: SP 12:06 | PROVIDERS: ATTEND Specialist | DX: R07.9 Chest pain, unspecified (principal) | CPT/HCPCS: 93306 ==

== ENCOUNTER 2019-02-25 23:38 | Observation (INO) | payer MEDICARE ==
[2019-02-26 00:15] LABS: ABSOLUTE BASOPHILS # (AUTO) 0.1 10^3/uL (0.0-0.2); ABSOLUTE EOSINOPHILS # (AUTO) 0.3 10^3/uL (0.0-0.6); ABSOLUTE LYMPHOCYTES (AUTO) 2.2 10^3/uL (0.5-4.7); ABSOLUTE NEUT (AUTO) 5.9 10^3/uL (1.7-8.2); BASOPHILS % (AUTO) 0.5 % (0-2); EOSINOPHILS % (AUTO) 3.4 % (0-6); HEMATOCRIT 35.2 % (37.9-51.0); HEMOGLOBIN 12.3 g/dL (13.5-17.0); LYMPHOCYTES % (AUTO) 23.1 % (13-45); MEAN CORPUSCULAR HEMOGLOBIN 30.8 pg (27.0-33.4); MEAN CORPUSCULAR HGB CONC 35.1 g/dL (32.0-36.0); MEAN CORPUSCULAR VOLUME 88 fl (80-97); MONOCYTES % (AUTO) 10.2 % (3-13); PLATELET COUNT 385 10^3/uL (150-450); RED BLOOD COUNT 4.01 10^6/uL (4.35-5.55); RED CELL DISTRIBUTION WIDTH 14.5 % (11.5-14.0); SEGMENTED NEUTROPHILS % (AUTO) 62.8 % (42-78); TOTAL CELLS COUNTED % (AUTO) 100 %; WHITE BLOOD COUNT 9.4 10^3/uL (4.0-10.5)
[2019-02-26 00:32] LABS: ALKALINE PHOSPHATASE 137 U/L (38-126); ANION GAP 10 (5-19); ASPARTATE AMINO TRANSFERASE 24 U/L (17-59); BILIRUBIN,DIRECT 0.4 mg/dL (0.0-0.4); BILIRUBIN,TOTAL 0.7 mg/dL (0.2-1.3); BLOOD UREA NITROGEN 17 mg/dL (7-20); CALCIUM 9.5 mg/dL (8.4-10.2); CARBON DIOXIDE 26 mmol/L (22-30); CHLORIDE 96 mmol/L (98-107); CREATINE KINASE 143 U/L (55-170); GLUCOSE 106 mg/dL (75-110); POTASSIUM 4.2 mmol/L (3.6-5.0); TOTAL PROTEIN 7.1 g/dL (6.3-8.2)
[2019-02-26 00:44] LABS: CREATINE KINASE MB 3.14 ng/mL (<4.55)
[2019-02-26 00:47] LABS: TROPONIN I < 0.012 ng/mL
[2019-02-26] MEDS ORDERED: ACETAMINOPHEN 325 MG TABLET PO ONE (01:52)
--- NOTE | 2019-02-26 02:53 | ER Document Report ---
ED Cardiac - General Chief Complaint: Chest Pain Stated Complaint: CHEST PAIN Time Seen by Provider: 02/26/19 02:19 Primary Care Provider: MARICARMEN JACK MD [Primary Care Provider] - Follow up as needed Notes: Very pleasant 53-year-old male with history of ACS in 2010 status post stent placement with replacement this year presents to the emergency department with chief complaint of chest pain that started at 2230. Patient states that the chest pain is substernal and was radiating up his left chest to his left shoulder but is not currently radiating. He states that the pain is present currently and constant and dull in nature. Patient states that he took 3 nitroglycerin sublingual tabs with no relief so he called EMS. Patient states that he had some associated nausea and diaphoresis. Patient had a negative stress test in October 2018. Patient is followed by cardiology at [facility] but has seen Dr. Tovar and Dr. Tapia in the past TRAVEL OUTSIDE OF THE [place] IN LAST 30 DAYS: No - Related Data Allergies/Adverse Reactions: pseudoephedrine [From Sudafed] Allergy (Verified 11/10/18 06:31) Sulfa (Sulfonamide Antibiotics) Allergy (Verified 11/10/18 06:31) Past Medical History - Social History Smoking Status: Never Smoker Frequency of alcohol use: None Drug Abuse: None Family History: Hyperlipidemia Patient has suicidal ideation: No Patient has homicidal ideation: No - Past Medical History Cardiac Medical History: Reports: Hx Heart Attack, Hx Hypercholesterolemia, Hx Hypertension Endocrine Medical History: Reports: Hx Diabetes Mellitus Type 1, Hx Diabetes Mellitus Type 2 Renal/ Medical History: Denies: Hx Peritoneal Dialysis GI Medical History: Reports: Hx Gastroesophageal Reflux Disease Psychiatric Medical History: Reports: Hx Depression, Hx Post Traumatic Stress Disorder Past Surgical History: Reports: Hx Abdominal Surgery, Hx Appendectomy, Hx Cardiac Catheterization, Hx Orthopedic Surgery - right shoulder, bilat knee replacement - Immunizations Immunizations up to date: Yes Hx Diphtheria, Pertussis, Tetanus Vaccination: Yes Review of Systems - Review of Systems Constitutional: See HPI EENT: No symptoms reported Cardiovascular: See HPI Respiratory: See HPI Gastrointestinal: See HPI Genitourinary: No symptoms reported Male Genitourinary: No symptoms reported Musculoskeletal: No symptoms reported Skin: No symptoms reported Hematologic/Lymphatic: No symptoms reported Neurological/Psychological: No symptoms reported Physical Exam - Vital signs Vitals: Temp Pulse Resp BP 99.2 F 83 16 140/87 H 02/25/19 23:39 02/25/19 23:39 02/25/19 23:39 02/25/19 23:39 - Notes Notes: PHYSICAL EXAMINATION: Reviewed vital signs and charting by RN GENERAL: Alert, interacts well. No acute distress. HEAD: Normocephalic, atraumatic. EYES: Pupils equal and round. Extraocular movements intact. ENT: Oral mucosa moist, tongue midline. NECK: Full range of motion. Trachea midline. LUNGS: Clear to auscultation bilaterally, no wheezes, rales, or rhonchi. No respiratory distress. HEART: Regular rate and rhythm. No murmur CHEST: Tenderness to palpation over the sternum ABDOMEN: soft, non-tender. No distention. Bowel sounds present EXTREMITIES: Moves all 4 extremities spontaneously. No edema, No cyanosis. PSYCH: Normal affect, normal mood. SKIN: Warm, dry, normal turgor. No rashes or lesions noted. Course - Re-evaluation Re-evalutation: 02/26/19 02:54 Well-appearing in no acute distress. Patient with a history of ACS and with some active chest pain. Initial troponin negative but it was drawn 2 hours after onset of symptoms so may be too early to present itself. EKG showed a sinus rhythm with a rate of 80, left axis deviation, no evidence of ST segment elevation or ST depressions, no acute T wave changes. Patient with a negative stress test in October 2018. Delta troponin pending. 02/26/19 05:10 Delta troponin was negative. I did discuss with my attending physician, Dr. fritz, and he is concerned based on patient's history and that he is actively having chest pain that we need to admit the patient to the hospital. I called Dr. Tapia, who recommended that we keep him for observation for chest pain rule out. I then called Dr. Nair, hospitalist who accepted the patient for telemetry observation. - Vital Signs Vital signs: Temp Pulse Resp BP Pulse Ox 99.7 F 83 22 H 111/79 93 02/26/19 02:31 02/25/19 23:39 02/26/19 04:31 02/26/19 05:01 02/26/19 05:01 - Laboratory Result Diagrams: 02/25/19 23:59 02/25/19 23:59 Laboratory results interpreted by me: 02/25/19 02/25/19 23:59 23:59 RBC 4.01 L Hgb 12.3 L Hct 35.2 L RDW 14.5 H Sodium 132.0 L Chloride 96 L Creatinine 1.46 H Est GFR (MDRD) Non-Af 50 L Alkaline Phosphatase 137 H Discharge - Discharge Clinical Impression: Chest pain Qualifiers: Chest pain type: unspecified Qualified Code(s): R07.9 - Chest pain, unspecified Condition: Stable Disposition: ADMITTED OBSERVATION Admitting Provider: Joanie (Hospitalist) Unit Admitted: Telemetry Referrals: MARICARMEN JACK MD [Primary Care Provider] - Follow up as needed
[2019-02-26] MEDS ORDERED: NITROGLYCERIN 0.4 MG/TAB 25 TAB/BOTTLE SL ONE (04:07)
[2019-02-26] MEDS ORDERED: MORPHINE SULFATE 10 MG/ML INJ IM ONE (04:08)
[2019-02-26] MEDS ORDERED: ONDANSETRON HCL INJ/PF 4 MG/2 ML SDV IV PRN (05:17)
[2019-02-26] MEDS ORDERED: MAGNESIUM HYDROXIDE SUSP 30 ML UDCUP PO PRN (05:17)
[2019-02-26] MEDS ORDERED: MAG HYDROX/AL HYDROX/SIMETH SUSP 30 ML UDCUP PO PRN (05:17)
[2019-02-26] MEDS ORDERED: HYDRALAZINE HCL INJ/PF 20 MG/1 ML SDV IV PRN (05:21)
[2019-02-26] MEDS ORDERED: ACETAMINOPHEN 325 MG TABLET PO PRN (05:21)
[2019-02-26] MEDS ORDERED: MORPHINE SULFATE 10 MG/ML INJ IV PRN ×3 (05:21)
[2019-02-26] MEDS ORDERED: DEXTROSE 40% GEL 15 GM TUBE PO PRN ×2 (05:25)
[2019-02-26] MEDS ORDERED: DEXTROSE 50%-WATER 25 GM/50 ML DISP.SYRIN IV PRN ×2 (05:25)
[2019-02-26] MEDS ORDERED: GLUCAGON,HUMAN RECOMB 1 MG INJ IM PRN (05:25)
[2019-02-26] MEDS ORDERED: INSULIN REG, HUMAN 100 UNIT/ML 3 ML VIAL (PYX) SUBCUT PRN (05:26)
--- NOTE | 2019-02-26 06:08 | PDOC H&P ---
History of Present Illness Admission Date/PCP: 02/26/19 05:14 MARICARMEN JACK MD Patient complains of: Chest pain History of Present Illness: JOIE BYRD is a 53 year old male who presented to the emergency room with acute chest pain. He admits suddenly developing constant severe substernal chest pain (dull pressure) with radiation to his left shoulder at 10:30 PM on 02/25/2019. He took nitroglycerin sublingually x3 without relief and then called the paramedics. His pain was accompanied by nausea and diaphoresis. He denies other accompanying or associated signs and symptoms. He admits prior similar episodes with cardiac problems in the past. He has not identified any additional aggravating or ameliorating factors for his chest pain. In the emergency room he was found to have an EKG and initial cardiac enzymes x2 that were negative for acute myocardial ischemia or injury. He was subsequently admitted to observation status for further evaluation and treatment at Dr. Julia sofia's request. Past Medical History Cardiac Medical History: Reports: Coronary Artery Disease, Myocardial Infarction, Hyperlipidema - Hypertriglyceridemia, Hypertension Denies: Atrial Fibrillation, Congestive Heart Failure Pulmonary Medical History: Reports: Sleep Apnea - CPAP prescribed Denies: Asthma, Chronic Obstructive Pulmonary Disease (COPD) EENT Medical History: Denies: Cataracts, Ears - Hearing aids Neurological Medical History: Denies: Hemorrhagic CVA, Ischemic CVA, Seizures Endocrine Medical History: Reports: Diabetes Mellitus Type 2, Obesity Denies: Diabetes Mellitus Type 1, Hyperthyroidism, Hypothyroidism Renal/ Medical History: Denies: Chronic Kidney Disease, Nephrolithiasis Malignancy Medical History: Reports: None GI Medical History: Reports: Gastroesophageal Reflux Disease, Other - Internal hemorrhoids Denies: Cirrhosis, Crohn's Disease, Hepatitis, Peptic Ulcer Disease, Ulcerative Colitis Musculoskeltal Medical History: Denies: Arthritis, Gout Skin Medical History: Denies: Eczema, Psoriasis Psychiatric Medical History: Reports: Depression, Post Traumatic Stress Disorder Denies: Alcohol Dependency, Substance Abuse, Tobacco Dependency Traumatic Medical History: Reports: None Hematology: Reports: Anemia Denies: Bleeding Tendencies Infectious Medical History: Reports: None Past Surgical History Past Surgical History: Reports: Appendectomy, Cardiac Catheterization, Coronary Stent, Orthopedic Surgery - right shoulder, bilat knee replacement, Other - Colonoscopy Social History Information Source: Patient Lives with: Family Smoking Status: Never Smoker Electronic Cigarette use?: No Frequency of Alcohol Use: Occasional Hx Recreational Drug Use: No Drugs: None Hx Prescription Drug Abuse: No - Advance Directive Resuscitation Status: Full Code Surrogate healthcare decision maker:: Jadon Byrd Family History Family History: CAD, DM, Hyperlipidemia, Hypertension, Malignancy Parental Family History Reviewed: Yes Children Family History Reviewed: No Sibling(s) Family History Reviewed.: Yes Medication/Allergy Home Medications: Amlodipine Besylate [Norvasc 10 mg Tablet] 10 mg PO DAILY 11/10/18 Aspirin [Adult Aspirin Regimen] 81 mg PO DAILY 11/10/18 Atorvastatin Calcium [Lipitor 80 mg Tablet] 80 mg PO QHS 11/10/18 Citalopram Hydrobromide [Celexa 10 mg Tablet] 30 mg PO DAILY 11/10/18 Divalproex Sodium 250 mg PO BID 11/10/18 Docusate Sodium [Colace] 100 mg PO QAM 11/10/18 Doxazosin Mesylate [Cardura 2 mg Tablet] 2 mg PO QHS 11/10/18 Fluticasone Propionate [Flonase Nasal [place] 50 Mcg/[place] 16 gm] 1 spray NASL BID 11/10/18 Furosemide [Lasix 20 mg Tablet] 20 mg PO QAM 11/10/18 Gabapentin [Neurontin] 800 mg PO TID 11/10/18 Haloperidol [Haldol 5 mg Tablet] 0.5 mg PO DAILY 11/10/18 Lisinopril [Prinivil] 20 mg PO DAILY 11/10/18 Mv-Mins/Folic/Lycopene/Ginkgo [One Daily For Men 50+ Adv Tab] 1 each PO DAILY 11/10/18 Naproxen 500 mg PO BID 11/10/18 Nitroglycerin [Nitrostat 0.4 mg (1/150 Gr) Tabs 25/Bottle] 1 tab SL Q5MP PRN 11/10/18 Trihexyphenidyl HCl [Artane 2 mg Tablet] 2 mg PO BID 11/10/18 Pantoprazole Sodium [Protonix [address] Tablet] 40 mg PO BID@0600,1700 #60 tablet.dr 11/11/18 Ranolazine [Ranexa 500 mg Tab.sr] 500 mg PO Q12 #60 tab.sr.12h 11/11/18 Colchicine 0.6 mg PO Q12 7 Days #14 capsule 02/26/19 Colchicine [Colcrys 0.6 mg Tablet] 0.6 mg PO Q12 14 Days #28 tablet 02/26/19 Ibuprofen [Motrin 800 mg Tablet] 800 mg PO Q8HP PRN 02/26/19 Allergies/Adverse Reactions: pseudoephedrine [From Sudafed] Allergy (Verified 11/10/18 06:31) Sulfa (Sulfonamide Antibiotics) Allergy (Verified 11/10/18 06:31) Review of Systems Constitutional: ABSENT: chills, fever(s) Eyes: ABSENT: visual disturbances, other - Ocular pain Ears: ABSENT: hearing changes, other - Ear pain Nose, Mouth, and Throat: ABSENT: mouth pain, sore throat Cardiovascular: PRESENT: as per HPI, chest pain. ABSENT: dyspnea on exertion, edema, orthropnea, palpitations Respiratory: ABSENT: cough, dyspnea Gastrointestinal: PRESENT: as per HPI, nausea. ABSENT: abdominal pain, constipation, diarrhea, vomiting Musculoskeletal: ABSENT: back pain, joint swelling, muscle weakness Integumentary: PRESENT: as per HPI, diaphoresis. ABSENT: pruritus, rash Neurological: ABSENT: confusion, convulsions, focal weakness, memory loss, syncope Psychiatric: ABSENT: anxiety, depression Endocrine: ABSENT: cold intolerance, heat intolerance Hematologic/Lymphatic: ABSENT: easy bleeding, easy bruising Allergic/Immunologic: ABSENT: seasonal rhinorrhea Physical Exam Vital Signs: Temp Pulse Resp BP Pulse Ox 99.7 F 83 22 H 111/79 93 02/26/19 02:31 02/25/19 23:39 02/26/19 04:31 02/26/19 05:01 02/26/19 05:01 Intake & Output 02/24/19 02/25/19 02/26/19 23:59 23:59 23:59 Weight 115.666 kg General appearance: PRESENT: no acute distress, cooperative Head exam: PRESENT: atraumatic, normocephalic Eye exam: PRESENT: conjunctiva pink. ABSENT: conjunctival injection, scleral icterus Ear exam: PRESENT: normal external ear exam. ABSENT: bleeding, drainage Mouth exam: PRESENT: dry mucosa, neck supple Neck exam: ABSENT: thyromegaly, tracheal deviation Respiratory exam: PRESENT: clear to auscultation [place], symmetrical, unlabored Cardiovascular exam: PRESENT: RRR. ABSENT: clicks, gallop, rubs Pulses: PRESENT: normal radial pulses, normal dorsalis pedis pul Vascular exam: PRESENT: normal capillary refill. ABSENT: pallor GI/Abdominal exam: PRESENT: normal bowel sounds, soft. ABSENT: tenderness Rectal exam: PRESENT: deferred Extremities exam: ABSENT: joint swelling, pedal edema Musculoskeletal exam: ABSENT: deformity, dislocation Neurological exam: PRESENT: alert, oriented to person, oriented to place, oriented to time, oriented to situation, CN II-XII grossly intact. ABSENT: motor sensory deficit Psychiatric exam: PRESENT: appropriate affect, normal mood Skin exam: PRESENT: dry, intact, warm. ABSENT: jaundice, rash, urticaria Results Laboratory Results: 02/25/19 23:59 02/25/19 23:59 02/25/19 02/25/19 23:59 23:59 WBC 9.4 RBC 4.01 L Hgb 12.3 L Hct 35.2 L MCV 88 MCH 30.8 MCHC 35.1 RDW 14.5 H Plt Count 385 Seg Neutrophils % 62.8 Sodium 132.0 L Potassium 4.2 Chloride 96 L Carbon Dioxide 26 Anion Gap 10 BUN 17 Creatinine 1.46 H Est GFR ( Amer) > 60 Glucose 106 Calcium 9.5 Total Bilirubin 0.7 AST 24 Alkaline Phosphatase 137 H Total Protein 7.1 Albumin 4.0 02/25/19 02/25/19 02/26/19 23:59 23:59 02:35 Creatine Kinase 143 CK-MB (CK-2) 3.14 Troponin I < 0.012 < 0.012 Assessment and Plan - Diagnosis (1) Chest pain Qualifiers: Chest pain type: unspecified Qualified Code(s): R07.9 - Chest pain, unspecified Is this a current diagnosis for this admission?: Yes (2) PTSD (post-traumatic stress disorder) Is this a current diagnosis for this admission?: Yes (3) CAD (coronary artery disease) Qualifiers: Coronary Disease-Associated Artery/Lesion type: [place] artery [place] vs. transplanted heart: [place] heart Associated angina: with stable angina Qualified Code(s): I25.118 - Atherosclerotic heart disease of [place] coronary artery with other forms of angina pectoris Is this a current diagnosis for this admission?: Yes (4) DM2 (diabetes mellitus, type 2) Qualifiers: Diabetes mellitus fdc insulin use: with fdc use Diabetes mellitus complication status: with kidney complications Diabetes mellitus complication detail: with chronic kidney disease Chronic kidney disease stage: stage 3 (moderate) Qualified Code(s): E11.22 - Type 2 diabetes mellitus with diabetic chronic kidney disease; N18.3 - Chronic kidney disease, stage 3 (moderate); Z79.4 - 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 He will receive routine supportive and symptomatic cares. Serial cardiac enzymes will be obtained and a consultation for cardiac evaluation by Dr. Rosas mccann will also be placed. Patient's chest pain will be treated with morphine sulfate 2 to 4 mg IV every 2 hours as needed basis using a sliding scale. He will be continued on his usual medications and diet for his chronic medical illnesses as soon as his current medication list has been verified. - Time Time Spent with patient: 15-24 minutes Medications reviewed and adjusted accordingly: Yes Anticipated discharge: Home Within: within 24 hours - Inpatient Certification Based on my medical assessment, after consideration of the patient's comorbidities, presenting symptoms, or acuity I expect that the services needed warrant INPATIENT care.: No I certify that my determination is in accordance with my understanding of Medicare's requirements for reasonable and necessary INPATIENT services [42 CFR 412.3e].: No
[2019-02-26] MEDS: HEPARIN SOD (PORCINE) 5,000 UNIT/ML 1 ML VIAL SUBCUT SCH ×2 (06:55→13:31)
[2019-02-26] MEDS: DOCUSATE SODIUM 100 MG CAPSULE PO SCH ×2 (09:15→17:20)
[2019-02-26 09:22] LABS: CREATINE KINASE MB 2.75 ng/mL (<4.55)
[2019-02-26 09:23] LABS: TROPONIN I < 0.012 ng/mL
[2019-02-26] MEDS ORDERED: FAMOTIDINE 20 MG TABLET PO SCH (10:00)
--- NOTE | 2019-02-26 12:13 | EKG REPORT ---
SEVERITY:- OTHERWISE NORMAL ECG - SINUS RHYTHM LEFT AXIS DEVIATION : Confirmed by: Jina Tovar 26-Feb-2019 12:13:28
[2019-02-26 15:28] LABS: CREATINE KINASE MB 2.21 ng/mL (<4.55)
--- NOTE | 2019-02-26 15:28 | PDOC DISCHARGE SUMMARY ---
Impression - Admit/DC Date/PCP Admission Date/Primary Care Provider: 02/26/19 05:14 MARICARMEN JACK MD Discharge Date: 02/26/19 - Assessment Summary: Patient is admitted observation status in a telemetry bed on the medical floor. He will receive routine supportive and symptomatic cares. Serial cardiac enzymes will be obtained and a consultation for cardiac evaluation by Dr. Tapia will also be placed. Patient's chest pain will be treated with morphine sulfate 2 to 4 mg IV every 2 hours as needed basis using a sliding scale. He will be continued on his usual medications and diet for his chronic medical illnesses as soon as his current medication list has been verified. - Additional Information Resuscitation Status: Full Code Discharge Diet: As Tolerated Discharge Activity: Activity As Tolerated Referrals: MARICARMEN JACK MD [Primary Care Provider] - Follow up as needed Prescriptions: Colchicine 0.6 mg PO Q12 7 Days #14 capsule Colchicine [Colcrys 0.6 mg Tablet] 0.6 mg PO Q12 14 Days #28 tablet Home Medications: Amlodipine Besylate [Norvasc 10 mg Tablet] 10 mg PO DAILY 11/10/18 Aspirin [Adult Aspirin Regimen] 81 mg PO DAILY 11/10/18 Atorvastatin Calcium [Lipitor 80 mg Tablet] 80 mg PO QHS 11/10/18 Citalopram Hydrobromide [Celexa 10 mg Tablet] 30 mg PO DAILY 11/10/18 Divalproex Sodium 250 mg PO BID 11/10/18 Docusate Sodium [Colace] 100 mg PO QAM 11/10/18 Doxazosin Mesylate [Cardura 2 mg Tablet] 2 mg PO QHS 11/10/18 Fluticasone Propionate [Flonase Nasal [place] 50 Mcg/[place] 16 gm] 1 spray NASL BID 11/10/18 Furosemide [Lasix 20 mg Tablet] 20 mg PO QAM 11/10/18 Gabapentin [Neurontin] 800 mg PO TID 11/10/18 Haloperidol [Haldol 5 mg Tablet] 0.5 mg PO DAILY 11/10/18 Lisinopril [Prinivil] 20 mg PO DAILY 11/10/18 Mv-Mins/Folic/Lycopene/Ginkgo [One Daily For Men 50+ Adv Tab] 1 each PO DAILY 11/10/18 Naproxen 500 mg PO BID 11/10/18 Nitroglycerin [Nitrostat 0.4 mg (1/150 Gr) Tabs 25/Bottle] 1 tab SL Q5MP PRN 11/10/18 Trihexyphenidyl HCl [Artane 2 mg Tablet] 2 mg PO BID 11/10/18 Pantoprazole Sodium [Protonix [address] Tablet] 40 mg PO BID@0600,1700 #60 tablet.dr 11/11/18 Ranolazine [Ranexa 500 mg Tab.sr] 500 mg PO Q12 #60 tab.sr.12h 11/11/18 Colchicine 0.6 mg PO Q12 7 Days #14 capsule 02/26/19 Colchicine [Colcrys 0.6 mg Tablet] 0.6 mg PO Q12 14 Days #28 tablet 02/26/19 Ibuprofen [Motrin 800 mg Tablet] 800 mg PO Q8HP PRN 02/26/19 History of Present Illiness History of Present Illness: JOIE BYRD is a 53 year old male with a history of coronary artery disease, hypertension, hyperlipidemia as well and PTSD. He also has a history of reflux. He had an acute onset of central chest pain. It did not respond to nitroglycerin. He called EMS. There were no acute EKG changes and his first troponin was less than 0.012. Evaluation in the emergency department showed mild hyponatremia as well as mild acute kidney injury. The patient was referred to the hospital service for admission with Dr. Tapia consulting. Hospital Course Hospital Course: Dr. Mitchell saw the patient and his chest pain is reproducible and is exacerbated with palpation. The patient also has severe reflux and feels that this could also be contributing. The patient had 4 troponins that were all less than 0.012. The patient was seen by Dr. Tapia. It is most likely musculoskeletal chest pain. Dr. Tapia initiated colchicine therapy. The patient will return to all of his baseline medications with the addition of colchicine and follow-up with his PCP as an outpatient. Physical Exam Vital Signs: Temp Pulse Resp BP Pulse Ox 98.2 F 92 18 135/79 H 96 02/26/19 10:49 02/26/19 14:00 02/26/19 10:49 02/26/19 10:49 02/26/19 10:49 Intake & Output 02/25/19 02/26/19 02/27/19 06:59 06:59 06:59 Intake Total 0 Output Total 0 Balance 0 Weight 113.4 kg General appearance: PRESENT: no acute distress, cooperative, morbidly obese, well-developed Head exam: PRESENT: atraumatic, normocephalic Ear exam: PRESENT: normal external ear exam. ABSENT: bleeding, drainage Respiratory exam: PRESENT: clear to auscultation [place], symmetrical, unlabored. ABSENT: rales, rhonchi, tachypnea, wheezes Cardiovascular exam: PRESENT: RRR, +S1, +S2 GI/Abdominal exam: PRESENT: normal bowel sounds, soft. ABSENT: distended, tenderness Rectal exam: PRESENT: deferred Extremities exam: ABSENT: joint swelling, pedal edema Musculoskeletal exam: PRESENT: ambulatory, normal inspection. ABSENT: deformity Neurological exam: PRESENT: alert, awake, oriented to person, oriented to place, oriented to time, oriented to situation, CN II-XII grossly intact Psychiatric exam: PRESENT: flat affect Focused psych exam: ABSENT: delusional, restlessness Results Laboratory Results: WBC 9.4 10^3/uL (4.0-10.5) 02/25/19 23:59 RBC 4.01 10^6/uL (4.35-5.55) L 02/25/19 23:59 Hgb 12.3 g/dL (13.5-17.0) L 02/25/19 23:59 Hct 35.2 % (37.9-51.0) L 02/25/19 23:59 MCV 88 fl (80-97) 02/25/19 23:59 MCH 30.8 pg (27.0-33.4) 02/25/19 23:59 MCHC 35.1 g/dL (32.0-36.0) 02/25/19 23:59 RDW 14.5 % (11.5-14.0) H 02/25/19 23:59 Plt Count 385 10^3/uL (150-450) 02/25/19 23:59 Lymph % (Auto) 23.1 % (13-45) 02/25/19 23:59 [place] % (Auto) 10.2 % (3-13) 02/25/19 23:59 Eos % (Auto) 3.4 % (0-6) 02/25/19 23:59 Baso % (Auto) 0.5 % (0-2) 02/25/19 23:59 Absolute Neuts (auto) 5.9 10^3/uL (1.7-8.2) 02/25/19 23:59 Absolute Lymphs (auto) 2.2 10^3/uL (0.5-4.7) 02/25/19 23:59 Absolute Monos (auto) 1.0 10^3/uL (0.1-1.4) 02/25/19 23:59 Absolute Eos (auto) 0.3 10^3/uL (0.0-0.6) 02/25/19 23:59 Absolute Basos (auto) 0.1 10^3/uL (0.0-0.2) 02/25/19 23:59 Seg Neutrophils % 62.8 % (42-78) 02/25/19 23:59 Sodium 132.0 mmol/L (137-145) L 02/25/19 23:59 Potassium 4.2 mmol/L (3.6-5.0) 02/25/19 23:59 Chloride 96 mmol/L (98-107) L 02/25/19 23:59 Carbon Dioxide 26 mmol/L (22-30) 02/25/19 23:59 Anion Gap 10 (5-19) 02/25/19 23:59 BUN 17 mg/dL (7-20) 02/25/19 23:59 Creatinine 1.46 mg/dL (0.52-1.25) H 02/25/19 23:59 Est GFR ( Amer) > 60 (>60) 02/25/19 23:59 Est GFR (MDRD) Non-Af 50 (>60) L 02/25/19 23:59 Glucose 106 mg/dL (75-110) 02/25/19 23:59 POC Glucose 100 mg/dL (70-110) 02/26/19 12:00 Calcium 9.5 mg/dL (8.4-10.2) 02/25/19 23:59 Total Bilirubin 0.7 mg/dL (0.2-1.3) 02/25/19 23:59 Direct Bilirubin 0.4 mg/dL (0.0-0.4) 02/25/19 23:59 Neonat Total Bilirubin Not Reportable 02/25/19 23:59 Neonat Direct Bilirubin Not Reportable 02/25/19 23:59 Neonat Indirect Bili Not Reportable 02/25/19 23:59 AST 24 U/L (17-59) 02/25/19 23:59 ALT 21 U/L (<50) 02/25/19 23:59 Alkaline Phosphatase 137 U/L (38-126) H 02/25/19 23:59 Creatine Kinase 133 U/L (55-170) 02/26/19 14:50 CK-MB (CK-2) 2.75 ng/mL (<4.55) 02/26/19 08:26 Troponin I < 0.012 ng/mL 02/26/19 08:26 Total Protein 7.1 g/dL (6.3-8.2) 02/25/19 23:59 Albumin 4.0 g/dL (3.5-5.0) 02/25/19 23:59 02/25/19 02/26/19 02/26/19 23:59 02:35 08:26 CK-MB (CK-2) 3.14 2.75 Troponin I < 0.012 < 0.012 < 0.012 Plan Health Concerns: Etiology of recurrent chest pain with a history of coronary artery disease. Plan of Treatment: Because this chest pain is non-cardiac and likely inflammatory the patient was started on colchicine. He should follow-up with his primary provider for repeat blood work including his sodium and glucose. He should also follow-up with his coil binder. Time Spent: Greater than 30 Minutes Stroke Is this a Stroke Patient?: No Acute Heart Failure - Is this a Heart Failure Patient?: No
[2019-02-26 15:30] LABS: TROPONIN I < 0.012 ng/mL
[2019-02-26] MEDS ORDERED: LIDOCAINE 2% VISCOUS SOLN 20 ML UDCUP PO ONE (16:00)
[2019-02-26] MEDS ORDERED: COLCHICINE 0.6 MG TABLET PO SCH (16:00)
[2019-02-26] MEDS ORDERED: METOCLOPRAMIDE HCL ORAL SOLN 10 MG/10 ML UDCUP PO ONE (16:00)
[2019-02-26] MEDS ORDERED: MAG HYDROX/AL HYDROX/SIMETH SUSP 30 ML UDCUP PO ONE (16:00)
[2019-02-26 16:13] VITALS: BP 140/87
[2019-02-26] MEDS ORDERED: PANTOPRAZOLE SODIUM 40 MG TABLET.DR PO ONE (16:15)
--- NOTE | 2019-02-26 19:55 | PDOC CONSULTATION ---
Consultation-Blank Consultation: CARDIOLOGY CONSULTATION BY Dr. Ivette Tapia on 02/26/2019. Patient seen at 1:30 PM. 60 minutes spent on this patient more than 50% of time spent in direct patient care. REASON FOR CONSULTATION: Patient with a history of CAD and history of LAD stent in the past admitted with chest pain. CONSULT REQUESTING PHYSICIAN: [facility] HISTORY PRESENT ILLNESS: Patient is a 53-year-old male who history of coronary artery disease and prior myocardial infarction. 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 The patient since then has been having atypical chest pain. The patient states the chest pain started a few days ago and is intermittent but is reproducible by pressing on the left front of the chest it also increases with the movements of the left shoulder. He also has central chest pain which is again reproducible. He also has a history of significant reflux disease. The patient is EKG is within normal limits. And the patient's troponin is within normal limits. He also had a stress test Cardiolite in October 2018 which was negative. The patient's echocardiogram showed normal LV ejection fraction with no significant valvular abnormalities. Past Medical History Cardiac Medical History: Reports: Coronary Artery Disease, Myocardial Infarction, Hyperlipidema - Hypertriglyceridemia, Hypertension Denies: Atrial Fibrillation, Congestive Heart Failure Pulmonary Medical History: Reports: Sleep Apnea - CPAP prescribed Denies: Asthma, Chronic Obstructive Pulmonary Disease (COPD) EENT Medical History: Denies: Cataracts, Ears - Hearing aids Neurological Medical History: Denies: Hemorrhagic CVA, Ischemic CVA, Seizures Endocrine Medical History: Reports: Diabetes Mellitus Type 2, Obesity Denies: Diabetes Mellitus Type 1, Hyperthyroidism, Hypothyroidism Renal/ Medical History: Denies: Chronic Kidney Disease, Nephrolithiasis Malignancy Medical History: Reports: None GI Medical History: Reports: Gastroesophageal Reflux Disease, Other - Internal hemorrhoids Denies: Cirrhosis, Crohn's Disease, Hepatitis, Peptic Ulcer Disease, Ulcerative Colitis Musculoskeltal Medical History: Denies: Arthritis, Gout Skin Medical History: Denies: Eczema, Psoriasis Psychiatric Medical History: Reports: Depression, Post Traumatic Stress Disorder Denies: Alcohol Dependency, Substance Abuse, Tobacco Dependency Traumatic Medical History: Reports: None Hematology: Reports: Anemia Denies: Bleeding Tendencies Infectious Medical History: Reports: None Past Surgical History Past Surgical History: Reports: Appendectomy, Cardiac Catheterization, Coronary Stent, Orthopedic Surgery - right shoulder, bilat knee replacement, Other - Colonoscopy Social History Information Source: Patient Lives with: Family Smoking Status: Never Smoker Electronic Cigarette use?: No Frequency of Alcohol Use: Occasional Hx Recreational Drug Use: No Drugs: None Hx Prescription Drug Abuse: No - Advance Directive Resuscitation Status: Full Code Surrogate healthcare decision maker:: Jadon Whitlock Family History Family History: CAD, DM, Hyperlipidemia, Hypertension, Malignancy Parental Family History Reviewed: Yes Children Family History Reviewed: No Sibling(s) Family History Reviewed.: Yes Medication/Allergy Home Medications: Amlodipine Besylate [Norvasc 10 mg Tablet] 10 mg PO DAILY 11/10/18 Aspirin [Adult Aspirin Regimen] 81 mg PO DAILY 11/10/18 Atorvastatin Calcium [Lipitor 80 mg Tablet] 80 mg PO QHS 11/10/18 Citalopram Hydrobromide [Celexa 10 mg Tablet] 30 mg PO DAILY 11/10/18 Divalproex Sodium 250 mg PO BID 11/10/18 Docusate Sodium [Colace] 100 mg PO QAM 11/10/18 Doxazosin Mesylate [Cardura 2 mg Tablet] 2 mg PO QHS 11/10/18 Fluticasone Propionate [Flonase Nasal [place] 50 Mcg/[place] 16 gm] 1 spray NASL BID 11/10/18 Furosemide [Lasix 20 mg Tablet] 20 mg PO QAM 11/10/18 Gabapentin [Neurontin] 800 mg PO TID 11/10/18 Haloperidol [Haldol 5 mg Tablet] 0.5 mg PO DAILY 11/10/18 Lisinopril [Prinivil] 20 mg PO DAILY 11/10/18 Mv-Mins/Folic/Lycopene/Ginkgo [One Daily For Men 50+ Adv Tab] 1 each PO DAILY 11/10/18 Naproxen 500 mg PO BID 11/10/18 Nitroglycerin [Nitrostat 0.4 mg (1/150 Gr) Tabs 25/Bottle] 1 tab SL Q5MP PRN 11/10/18 Trihexyphenidyl HCl [Artane 2 mg Tablet] 2 mg PO BID 11/10/18 Pantoprazole Sodium [Protonix [address] Tablet] 40 mg PO BID@0600,1700 #60 tablet.dr 08/16/19 Ranolazine [Ranexa 500 mg Tab.sr] 500 mg PO Q12 #60 tab.sr.12h 11/11/18 Colchicine 0.6 mg PO Q12 7 Days #14 capsule 02/26/19 Colchicine [Colcrys 0.6 mg Tablet] 0.6 mg PO Q12 14 Days #28 tablet 02/26/19 Ibuprofen [Motrin 800 mg Tablet] 800 mg PO Q8HP PRN 02/26/19 Allergies/Adverse Reactions: pseudoephedrine and Sulfa. Current Medications Discontinued Medications Generic Name Dose Route Start Last Admin Trade Name Freq PRN Reason Stop Dose Admin Acetaminophen 975 mg 02/26/19 01:52 02/26/19 01:55 Tylenol 325 Mg Tablet PO 02/26/19 01:53 975 mg NOW ONE Administration Acetaminophen 650 mg 02/26/19 05:21 Tylenol 325 Mg Tablet PO 03/28/19 05:20 Q4HP PRN For headache, pain or fever Al Hydrox/Mg Hydrox/Simethicone 30 ml 02/26/19 05:17 02/26/19 15:00 Maalox Plus Susp 30 Udcup PO 03/28/19 05:16 30 ml Q6HP PRN Administration HEARTBURN Al Hydrox/Mg Hydrox/Simethicone 30 ml 02/26/19 16:00 02/26/19 15:44 Maalox Plus Susp 30 Udcup PO 02/26/19 16:01 30 ml NOW ONE Administration Colchicine 0.6 mg 02/26/19 16:00 02/26/19 15:19 Colcrys 0.6 Mg Tablet PO 03/28/19 15:59 0.6 mg Q12 KARLEY Administration Dextrose 12.5 gm 02/26/19 05:25 Dextrose Inj 50% Syringe (25 Gm/50 Ml) IV 03/28/19 05:24 PRN PRN FOR BG 50-69 IN ALERT PATIENT Protocol Dextrose 25 gm 02/26/19 05:25 Dextrose Inj 50% Syringe (25 Gm/50 Ml) IV 03/28/19 05:24 PRN PRN PER PROTOCOL Protocol Docusate Sodium 100 mg 02/26/19 10:00 02/26/19 17:20 Colace 100 Mg Capsule PO 03/28/19 09:59 Not Given BID KARLEY Famotidine 20 mg 02/26/19 10:00 02/26/19 09:15 Pepcid 20 Mg Tablet PO 03/28/19 09:59 20 mg Q12 KARLEY Administration Glucagon 1 mg 02/26/19 05:25 Glucagen Inj 1 Mg Vial IM 03/28/19 05:24 PRN PRN Evaluate for BG < 70 Protocol Glucose 15 gm 02/26/19 05:25 Glutose 40% Gel 15 Gm Tube PO 03/28/19 05:24 PRN PRN FOR BG 50-69 IN ALERT PATIENT Protocol Glucose 30 gm 02/26/19 05:25 Glutose 40% Gel 15 Gm Tube PO 03/28/19 05:24 PRN PRN FOR BG < 50 IN ALERT PATIENT Protocol Heparin Sodium (Porcine) 5,000 unit 02/26/19 06:00 02/26/19 13:31 Heparin Inj 5,000 Units/Ml 1 Ml Vial SUBCUT 03/28/19 05:59 5,000 unit Q8 KARLEY Administration Hydralazine HCl 20 mg 02/26/19 05:21 Apresoline Inj/Pf 20 Mg/1 Ml Sdv IV 03/28/19 05:20 Q4HP PRN Give For Sbp > 160 / Dbp > 100 Insulin Human Regular 0 - 15 unit 02/26/19 05:26 Humulin R (Pyxis) Insulin 100 Unit/Ml 3ml SUBCUT 03/28/19 05:25 ACHSP PRN PER PROTOCOL Protocol Lidocaine HCl 15 ml 02/26/19 16:00 02/26/19 15:43 Xylocaine 2% Viscous Soln 20 Ml Udcup PO 02/26/19 16:01 15 ml NOW ONE Administration Magnesium Hydroxide 30 ml 02/26/19 05:17 Milk Of Magnesia 30 Ml Udcup PO 03/28/19 05:16 DAILYP PRN FOR CONSTIPATION Metoclopramide HCl 10 mg 02/26/19 16:00 02/26/19 15:44 Reglan Oral Soln 10 Mg/10 Ml Udcup PO 02/26/19 16:01 10 mg NOW ONE Administration Morphine Sulfate 2 mg 02/26/19 04:08 02/26/19 04:55 Morphine 10 Mg/Ml Inj IM 02/26/19 04:09 2 mg NOW ONE Administration Morphine Sulfate 2 mg 02/26/19 05:21 02/26/19 12:17 Morphine 10 Mg/Ml Inj IV 03/05/19 05:20 2 mg Q2HP PRN Administration FOR PAIN SCALE 1-2 Morphine Sulfate 3 mg 02/26/19 05:21 Morphine 10 Mg/Ml Inj IV 03/05/19 05:20 Q2HP PRN FOR PAIN SCALE 3-4 Morphine Sulfate 4 mg 02/26/19 05:21 Morphine 10 Mg/Ml Inj IV 03/05/19 05:20 Q2HP PRN PAIN SCALE OF 5 Nitroglycerin 1 tab 02/26/19 04:07 02/26/19 04:55 Nitrostat 0.4 Mg (1/150 Gr) Tabs 25/Bottle SL 02/26/19 04:08 1 tab NOW ONE Administration Ondansetron HCl 4 mg 02/26/19 05:17 Zofran Inj/Pf 4 Mg/2 Ml Sdv IV 03/28/19 05:16 Q4HP PRN FOR NAUSEA/VOMITING Pantoprazole Sodium 40 mg 02/26/19 16:15 02/26/19 16:[address] Tablet PO 02/26/19 16:16 40 mg NOW ONE Administration Sodium Chloride 2.5 ml 02/26/19 06:00 02/26/19 13:32 Saline Flush 2.5 Ml Monoject Prefil Syrin IV 03/28/19 05:59 2.5 ml Q8 KARLEY Administration Review of Systems Constitutional: ABSENT: chills, fever(s) Eyes: ABSENT: visual disturbances, other - Ocular pain Ears: ABSENT: hearing changes, other - Ear pain Nose, Mouth, and Throat: ABSENT: mouth pain, sore throat Cardiovascular: PRESENT: as per HPI, chest pain. ABSENT: dyspnea on exertion, edema, orthropnea, palpitations Respiratory: ABSENT: cough, dyspnea Gastrointestinal: PRESENT: as per HPI, nausea. ABSENT: abdominal pain, constipation, diarrhea, vomiting Musculoskeletal: ABSENT: back pain, joint swelling, muscle weakness Integumentary: PRESENT: as per HPI, diaphoresis. ABSENT: pruritus, rash Neurological: ABSENT: confusion, convulsions, focal weakness, memory loss, syncope Psychiatric: ABSENT: anxiety, depression Endocrine: ABSENT: cold intolerance, heat intolerance Hematologic/Lymphatic: ABSENT: easy bleeding, easy bruising Allergic/Immunologic: ABSENT: seasonal rhinorrhea. PHYSICAL EXAMINATION: The patient is morbidly obese. In no acute distress Selected Entries 02/26/19 10:49 Temperature 98.2 F Temperature Oral Source Pulse Rate 77 Respiratory 18 Rate Blood Pressure 135/79 H Blood Pressure 97 Mean BP Location Left Arm BP Position Supine O2 Sat by Pulse 96 Oximetry Oxygen Delivery Room Air Method HEAD: Atraumatic, normocephalic. EYES: Pupils equal round and reactive to light, extraocular movements intact, sclera anicteric, conjunctiva are normal. ENT: TMs normal, nares patent, oropharynx clear without exudates. Moist mucous membranes. No oral ulcerations or bleeding gums noted NECK: supple without lymphadenopathy. Trachea is central. No cervical or axillary lymphadenopathy noted. Carotids are 2+, JVD WNL LUNGS: Respiration seems nonlabored, no significant accessory muscle action noted. Breath sounds clear to auscultation bilaterally and equal noted. No wheezes rales or rhonchi noted. No significant dullness noted on percussion. CHEST: Palpation of the chest wall shows left front of chest localized tenderness and also tenderness in the retrosternal area. This reproduces the patient's clinical chest pain symptoms.. No other significant abnormalities noted. 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 ABDOMEN: Soft, no significant tenderness appreciated, normoactive bowel sounds. No guarding, no rebound. No rigidity noted . No masses appreciated. EXTREMITIES: Pedal pulses are 1-2+, no calf tenderness noted. No clubbing or cyanosis.trace to 1+ pedal edema noted NEUROLOGICAL: Focused neurological exam showed no significant neurologic deficit. Normal speech, no focal weakness appreciated. PSYCH: Normal mood, normal affect. Judgment and insight within normal limits. SKIN: No significant ecchymosis, rash, ulcerations or signs of pruritus noted. MUSCULOSKELETAL EXAM: No significant joint swelling noted. Labs- Entire Visit 02/25/19 02/25/19 02/25/19 23:59 23:59 23:59 WBC 9.4 RBC 4.01 L Hgb 12.3 L Hct 35.2 L MCV 88 MCH 30.8 MCHC 35.1 RDW 14.5 H Plt Count 385 Lymph % (Auto) 23.1 [place] % (Auto) 10.2 Eos % (Auto) 3.4 Baso % (Auto) 0.5 Absolute Neuts (auto) 5.9 Absolute Lymphs (auto) 2.2 Absolute Monos (auto) 1.0 Absolute Eos (auto) 0.3 Absolute Basos (auto) 0.1 Seg Neutrophils % 62.8 Sodium 132.0 L Potassium 4.2 Chloride 96 L Carbon Dioxide 26 Anion Gap 10 BUN 17 Creatinine 1.46 H Est GFR ( Amer) > 60 Est GFR (MDRD) Non-Af 50 L Glucose 106 POC Glucose Calcium 9.5 Total Bilirubin 0.7 Direct Bilirubin 0.4 Neonat Total Bilirubin Not Reportable Neonat Direct Bilirubin Not Reportable Neonat Indirect Bili Not Reportable AST 24 ALT 21 Alkaline Phosphatase 137 H Creatine Kinase 143 CK-MB (CK-2) 3.14 Troponin I < 0.012 Total Protein 7.1 Albumin 4.0 02/26/19 02/26/19 02/26/19 02:35 08:13 08:26 WBC RBC Hgb Hct MCV MCH MCHC RDW Plt Count Lymph % (Auto) [place] % (Auto) Eos % (Auto) Baso % (Auto) Absolute Neuts (auto) Absolute Lymphs (auto) Absolute Monos (auto) Absolute Eos (auto) Absolute Basos (auto) Seg Neutrophils % Sodium Potassium Chloride Carbon Dioxide Anion Gap BUN Creatinine Est GFR ( Amer) Est GFR (MDRD) Non-Af Glucose POC Glucose 129 H Calcium Total Bilirubin Direct Bilirubin Neonat Total Bilirubin Neonat Direct Bilirubin Neonat Indirect Bili AST ALT Alkaline Phosphatase Creatine Kinase 142 CK-MB (CK-2) Troponin I < 0.012 Total Protein Albumin 02/26/19 02/26/19 02/26/19 08:26 12:00 14:50 WBC RBC Hgb Hct MCV MCH MCHC RDW Plt Count Lymph % (Auto) [place] % (Auto) Eos % (Auto) Baso % (Auto) Absolute Neuts (auto) Absolute Lymphs (auto) Absolute Monos (auto) Absolute Eos (auto) Absolute Basos (auto) Seg Neutrophils % Sodium Potassium Chloride Carbon Dioxide Anion Gap BUN Creatinine Est GFR ( Amer) Est GFR (MDRD) Non-Af Glucose POC Glucose 100 Calcium Total Bilirubin Direct Bilirubin Neonat Total Bilirubin Neonat Direct Bilirubin Neonat Indirect Bili AST ALT Alkaline Phosphatase Creatine Kinase 133 CK-MB (CK-2) 2.75 Troponin I < 0.012 Total Protein Albumin 02/26/19 14:50 WBC RBC Hgb Hct MCV MCH MCHC RDW Plt Count Lymph % (Auto) [place] % (Auto) Eos % (Auto) Baso % (Auto) Absolute Neuts (auto) Absolute Lymphs (auto) Absolute Monos (auto) Absolute Eos (auto) Absolute Basos (auto) Seg Neutrophils % Sodium Potassium Chloride Carbon Dioxide Anion Gap BUN Creatinine Est GFR ( Amer) Est GFR (MDRD) Non-Af Glucose POC Glucose Calcium Total Bilirubin Direct Bilirubin Neonat Total Bilirubin Neonat Direct Bilirubin Neonat Indirect Bili AST ALT Alkaline Phosphatase Creatine Kinase CK-MB (CK-2) 2.21 Troponin I < 0.012 Total Protein Albumin EKG: Sinus rhythm. Leftward axis. Otherwise within normal limits. 1. Chest pain: Clearly noncardiac reproducible. We will start the patient on colchicine. Also some of this might be secondary to patient's severe reflux. We will give the patient a GI cocktail. No evidence of acute coronary syndrome. The patient's cardiac background markers and EKGs are within normal limits. 2. Coronary artery disease: History of old [place]. History of LAD stent. No clear-cut anginal symptoms. 3. Hypertension: Blood pressure well controlled 4. Diabetes mellitus: Continue current diabetic medication. 5. Hyperlipidemia: Continue statin. Medications reviewed. Medical regimen and management plan discussed with attending physician on the case. Patient's symptoms are clearly noncardiac. Will discharge the patient and follow the patient up in the office. Will sign off. Discussed this with the patient. The patient has my cell phone number and will contact me if there should be any problems.
== END 2019-02-26 17:35 | disposition home or self-care (01) ==
LOC: ER 23:38 → EH 02-26 05:14 → 3N 02-26 06:04
PROVIDERS: ADMIT Emergency Medicine; ATTEND Emergency Medicine
DX: R07.89 Other chest pain (principal); N17.9 Acute kidney failure, unspecified; E87.1 Hypo-osmolality and hyponatremia; I25.118 Atherosclerotic heart disease of native coronary artery with other forms of angina pectoris; E78.5 Hyperlipidemia, unspecified; E11.22 Type 2 diabetes mellitus with diabetic chronic kidney disease; I12.9 Hypertensive chronic kidney disease with stage 1 through stage 4 chronic kidney disease, or unspecified chronic kidney disease; N18.3 Chronic kidney disease, stage 3 (moderate); F43.10 Post-traumatic stress disorder, unspecified; G47.33 Obstructive sleep apnea (adult) (pediatric); K21.0 Gastro-esophageal reflux disease with esophagitis; E66.01 Morbid (severe) obesity due to excess calories; F32.9 Major depressive disorder, single episode, unspecified; Z79.4 Long term (current) use of insulin; I25.2 Old myocardial infarction; Z79.899 Other long term (current) drug therapy; Z79.82 Long term (current) use of aspirin; Z95.5 Presence of coronary angioplasty implant and graft; Z82.49 Family history of ischemic heart disease and other diseases of the circulatory system; Z90.49 Acquired absence of other specified parts of digestive tract
CPT/HCPCS: 93005; 99285; 96372; 36415; 82553; 82962; 82550; 85025; 80053; 84484; 93010; G0378 ×2; A9270 ×8; J1644; J3490 ×2; J2270

== ENCOUNTER → 2019-04-27 | Day surgery (SDC) | payer MEDICARE ==
[~2019-04-27] MED LIST: BUPIVACAINE HCL 0.5 % INJ/PF 30 ML SDV ONE; LIDOCAINE 1% INJ-PF (10 MG/ML) 30 ML SDV ONE
--- NOTE | 2019-04-27 09:10 | Operative Report ---
PREOPERATIVE DIAGNOSIS: Spondylolisis without myopathy or radiculopathy M47.818// Lumbar Sacral Spondylolisis without myopathy or radiculopathy M47.817 POSTOPERATIVE DIAGNOSIS:Spondylolisis without myopathy or radiculopathy M47.818// Lumbar Sacral Spondylolisis without myopathy or radiculopathy M47.817 PROCEDURE: 1. Radiofrequency Ablation of Bilateral L5 dorsal Ramus 2. Sacroiliac Joint Ablation - Lateral Branches of bilateral S1, S2, S3 DATE OF PROCEDURE: April 27, 2019 ANESTHESIA: Local COMPLICATIONS: None CONSENT: A full description of the procedure was provided including benefits as well as possible complications. All questions were answered and informed consent was given and signed. ASA guidelines for fasting were verified prior to s edation. PROCEDURE IN DETAIL The patient was brought into the fluoroscopy suite and carefully assisted into the prone position on the fluoroscopy table and allowed to adjust to a position of comfort. A grounding pad was placed on the right thigh. The low back and buttocks were widely prepped with a chloraprep solution, allowed to air dry and draped in standard sterile surgical fashion. Local anesthesia was provided by 12 mL of 1 % lidocaine delivered with a 25 g needle. PROCEDURE #1: Radiofrequency Ablation of Dorsal Ramus of bilateral L5. A 17g 75 mm radiofrequency introducer needle was placed to the planned anatomic target, guided with intermittent fluoroscopy with a perpendicular approach, to terminally place at the bilateral sacral ala. The stylets were removed and the radiofrequency probes with a 4mm active tip were then inserted. Needle tip position of the probes were verified in the AP, oblique, and lateral views. At each site, the medial branch nerve was stimulated at 2Hz to a maximum of 1- 2volts determined to finalize safe needle and electrode placement. The patient was awake and responsive during this portion of the procedure. Each target was anesthetized with 2mL of 2 % Sensorcaine anesthesia for lesioning and then each target was lesioned at 80 degrees Celsius for 2 minutes and 30 seconds. Tissue impedences were noted to be between 250 and 500 Ohms. PROCEDURE #2: Radiofrequency Ablation of bilateral S1, S2, S3 Lateral Branches Using the AP fluoroscopic view for visualization of the lateral PSFA as defined by the pre-placed 27-gauge Quincke needles, appropriate skin starting positions were defined. Using the PSFA as a "clock-face", the positions were: S1; bilateral = 1 and 5 oclock S2; bilateral = 1 and 5 oclock S3; bilateral = 3 oclock Using fluoroscopic guidance, a 17g introducer needle was inserted sequentially onto the target positions described above until the introducer tip touched the bony surface of the sacrum. The stylet was withdrawn from the introducer and the radiofrequency probe with a 4 mm active tip was fully inserted into the introducer. A lateral view was obtained for standard reference. At each of the targets, needle placement was verified with the use of multi-planar fluoroscopy. The needle tip position was approximately 7 - 10mm lateral to the PSFA as determined by using an Epsilon ruler. At each site, the lateral branch nerve was stimulated at 2 Hz to a maximum of 1- 2 volts determined to finalize safe needle and electrode placement. The patient was awake and responsive during this portion of the procedure. Each target was anesthetized with 2 mL of 2 % Sensorcaine anesthesia for lesioning and then each target was lesioned at 80 degrees Celsius for 2 minutes and 30 seconds. Tissue impedences were noted to be between 250- 500 Ohms. At the conclusion of the lesioning the needles were removed and bandages placed over the needle placement sites and the patient returned to the supine position on a stretcher and transp orted to the recovery room without hemodynamic, neurologic, or allergic reactions. Fluoroscopic images were printed for hard copy recording and digitally archived. FLUOROSCOPIC INTERPRETATION: Appropriate epidurogram obtained. Appropriate lesioning of the 10 targets noted. POST PROCEDURE EVALUATION: The patient was comfortable in the recovery room. The patient is aware that pain may worsen before remitting and 4 6 weeks may be required prior to the onset of pain relief. IMPRESSION: 1. Technically successful sacral lateral branch, lumbar dorsal ramus for denervation from L5-S3 on the bilateral without complication. 2. RTC in 2 weeks. 3. Estimated Blood Loss: None 4. Fluoroscopy time: 30 seconds
--- NOTE | 2019-06-12 14:22 | RADIOLOGY REPORT (SQ) ---
EXAM DESCRIPTION: NERVE ABLATION-SACRAL BILAT COMPLETED DATE/TIME: 06/12/2019 12:46 pm REASON FOR STUDY: SPONDYLOSIS W/O MYELOPATHY OR RADICULOPATHY, LUMBOSACRAL REGION (M47.817) M47.817 SPONDYLS W/O MYELOPATHY OR RADICULOPATHY, LUMBOSACR COMPARISON: None. FLUOROSCOPY TIME: 0.3 minutes Spot images saved to PACS. TECHNIQUE: Intra-operative images acquired during surgical procedure to evaluate progress. NUMBER OF IMAGES: 6 LIMITATIONS: None. FINDINGS: Fluoroscopy was provided for intraoperative procedure. Please refer to the operative repo rt for further discussion. IMPRESSION: IMAGE(S) OBTAINED DURING PROCEDURE. COMMENT: Quality ID 145: Final reports for procedures using fluoroscopy that document radiation exp osure indices, or exposure time and number of fluorographic images (if radiation exposure indices are not available) Please consult full operative report of the attending physician for description of the procedure. TECHNICAL DOCUMENTATION: JOB ID: [id number] 2010 [employer]- All Rights Reserved Reading location - IP/workstation name: [email or web address]
== END ==
LOC: RAD 07:02
PROVIDERS: ATTEND Family Medicine
DX: M47.817 Spondylosis without myelopathy or radiculopathy, lumbosacral region (principal)
CPT/HCPCS: 64635; 64640 ×3; J3490 ×2

== ENCOUNTER 2019-05-11 16:03 | Emergency (ER) | payer MEDICARE ==
--- NOTE | 2019-05-11 16:44 | ER Document Report ---
ED Medical Screen (RME) - General Chief Complaint: Fainting Stated Complaint: LIGHTHEADED,COUGH Time Seen by Provider: 05/11/19 16:28 Primary Care Provider: MARICARMEN JACK MD [Primary Care Provider] - Follow up as needed Notes: Patient is a 53-year-old male with a history of type 2 diabetes, hypertension who presents emergency department with a chief complaint of cough and syncope. Patient reports he is on Augmentin currently for bronchitis and a sinus infection. Patient reports has been battling a productive cough with yellow to orange sputum for about 1 week. Patient reports some shortness of breath w ithout chest pain. Patient also reports earlier this afternoon about 2 to 3 hours ago he choked on a [place] june, states that he started to have a coughing spell which caused him to pass out. I did speak with the son who states he leaned into the refrigerator on his right side and fell to the floor. He is not sure if he hit his head but he did have a loss of consciousness of about 5 to 10 seconds. Patient reports after the fall he has not had any vomiting or nausea. TRAVEL OUTSIDE OF THE [place] IN LAST 30 DAYS: No - Related Data Allergies/Adverse Reactions: pseudoephedrine [From Sudafed] Allergy (Verified 11/10/18 06:31) Sulfa (Sulfonamide Antibiotics) Allergy (Verified 11/10/18 06:31) Past Medical History - Past Medical History Cardiac Medical History: Reports: Hx Coronary Artery Disease, Hx Heart Attack, Hx Hypercholesterolemia - Hypertriglyceridemia, Hx Hypertension Denies: Hx Atrial Fibrillation, Hx Congestive Heart Failure Pulmonary Medical History: Reports: Hx Sleep Apnea - CPAP prescribed Denies: Hx Asthma, Hx COPD Neurological Medical History: Denies: Hx Seizures Endocrine Medical History: Reports: Hx Diabetes Mellitus Type 2. Denies: Hx Diabetes Mellitus Type 1, Hx Hyperthyroidism, Hx Hypothyroidism Renal/ Medical History: Denies: Hx Peritoneal Dialysis GI Medical History: Reports: Hx Gastroesophageal Reflux Disease. Denies: Hx Cirrhosis, Hx Crohn's Disease, Hx Hepatitis, Hx Ulcerative Colitis Musculoskeltal Medical History: Denies Hx Arthritis, Denies Hx Gout Skin Medical History: Denies Hx Eczema, Denies Hx Psoriasis Psychiatric Medical History: Reports: Hx Depression, Hx Post Traumatic Stress Disorder Infectious Medical History: Denies: Hx Hepatitis Past Surgical History: Reports: Hx Abdominal Surgery, Hx Appendectomy, Hx Cardiac Catheterization, Hx Coronary Stent, Hx Orthopedic Surgery - right shoulder, bilat knee replacement, Other - Colonoscopy - Immunizations Immunizations up to date: Yes Hx Diphtheria, Pertussis, Tetanus Vaccination: Yes Physical Exam - Vital signs Vitals: Temp Pulse Resp BP Pulse Ox 99.0 F 57 L 20 134/75 H 95 05/11/19 16:08 05/11/19 16:08 05/11/19 16:08 05/11/19 16:08 05/11/19 16:08 - HEENT Head: Normocephalic Eyes: Normal Conjunctiva: Normal Cornea: Normal Pupils: PERRL Course - Re-evaluation Re-evalutation: 05/11/19 16:43 I have greeted and performed a rapid initial assessment of this patient. A comprehensive ED assessment and evaluation of the patient, analysis of test results and completion of the medical decision making process will be conducted by additional ED providers. - Vital Signs Vital signs: Temp Pulse Resp BP Pulse Ox 99.0 F 57 L 20 134/75 H 95 05/11/19 16:08 05/11/19 16:08 05/11/19 16:08 05/11/19 16:08 05/11/19 16:08 Doctor's Discharge - Discharge Referrals: MARICARMEN JACK MD [Primary Care Provider] - Follow up as needed
[2019-05-11 17:45] LABS: ABSOLUTE BASOPHILS # (AUTO) 0.1 10^3/uL (0.0-0.2); ABSOLUTE EOSINOPHILS # (AUTO) 0.4 10^3/uL (0.0-0.6); ABSOLUTE LYMPHOCYTES (AUTO) 2.2 10^3/uL (0.5-4.7); BASOPHILS % (AUTO) 0.7 % (0-2); EOSINOPHILS % (AUTO) 3.9 % (0-6); HEMATOCRIT 35.1 % (37.9-51.0); LYMPHOCYTES % (AUTO) 22.3 % (13-45); MEAN CORPUSCULAR HEMOGLOBIN 28.8 pg (27.0-33.4); MEAN CORPUSCULAR HGB CONC 34.1 g/dL (32.0-36.0); MEAN CORPUSCULAR VOLUME 84 fl (80-97); MONOCYTES % (AUTO) 10.4 % (3-13); PLATELET COUNT 375 10^3/uL (150-450); RED BLOOD COUNT 4.15 10^6/uL (4.35-5.55); RED CELL DISTRIBUTION WIDTH 14.7 % (11.5-14.0); SEGMENTED NEUTROPHILS % (AUTO) 62.7 % (42-78); TOTAL CELLS COUNTED % (AUTO) 100 %; WHITE BLOOD COUNT 9.6 10^3/uL (4.0-10.5)
--- NOTE | 2019-05-11 17:52 | RADIOLOGY REPORT (SQ) ---
EXAM DESCRIPTION: CHEST 2 VIEWS COMPLETED DATE/TIME: 05/11/2019 5:14 pm REASON FOR STUDY: Fall, head injury, loc COMPARISON: 11/10/2018 EXAM PARAMETERS: NUMBER OF VIEWS: two views TECHNIQUE: Digital Frontal and Lateral radiographic views of the chest acquired. RADIATION DOSE: NA LIMITATIONS: none FINDINGS: LUNGS AND PLEURA: No opacities, masses or pneumothorax. No pleural effusion. MEDIASTINUM AND HILAR STRUCTURES: No masses or contour abnormalities. HEART AND VASCULAR STRUCTURES: Heart normal size. No evidence for failure. BONES: No acute findings. HARDWARE: None in the chest. OTHER: No other significant finding. IMPRESSION: NO ACUTE RADIOGRAPHIC FINDING IN THE CHEST. TECHNICAL DOCUMENTATION: JOB ID: [id number] 2010 [employer]- All Rights Reserved Reading location - IP/workstation name: [email or web address]
--- NOTE | 2019-05-11 17:53 | RADIOLOGY REPORT (SQ) ---
EXAM DESCRIPTION: CERV SP 4 OR 5 VIEWS COMPLETED DATE/TIME: 05/11/2019 5:14 pm REASON FOR STUDY: fall, neck pain COMPARISON: None. NUMBER OF VIEWS: Five views. TECHNIQUE: AP, lateral, obliques and odontoid radiographic images acquired of the cervical spine. LIMITATIONS: None. FINDINGS: MINERALIZATION: Normal. ALIGNMENT: Anatomic. VERTEBRAE: Vertebral bodies of normal height. DISCS: Disc changes are present at C4-5, C5-6, and C6-7 with marginal osteophytes. FORAMINA: No osteophytes or foraminal narrowing. LATERAL AND POSTERIOR ELEMENTS: Facets, lateral masses and spinous processes without significant find ings. HARDWARE: None in the spine. SOFT TISSUES: No masses or calcifications. Lung apices clear. OTHER: No other significant finding. IMPRESSION: Degenerative disc disease and spondylosis. No acute finding. TECHNICAL DOCUMENTATION: JOB ID: [id number] 2011 [employer]- All Rights Reserved Reading location - IP/workstation name: [email or web address]
--- NOTE | 2019-05-11 17:59 | RADIOLOGY REPORT (SQ) ---
EXAM DESCRIPTION: CT HEAD WITHOUT COMPLETED DATE/TIME: 05/11/2019 5:17 pm REASON FOR STUDY: Fall, head injury, loc COMPARISON: 02/28/2018 TECHNIQUE: Axial images acquired through the brain without intravenous contrast. Images reviewed wi th bone, brain and subdural windows. Additional sagittal and coronal reconstructions were generated. Images stored on PACS. All CT scanners at this facility use dose modulation, iterative reconstruction, and/or weight based d osing when appropriate to reduce radiation dose to as low as reasonably achievable (ALARA). [facility]: Dose Right [facility]: CareDose [facility]: Dose Right [facility]: Teradose 4D [facility]: Smart You Software RADIATION DOSE: CT Rad equipment meets quality standard of care and radiation dose reduction techniq ues were employed. CTDIvol: 53.2 mGy. DLP: 1070 mGy-cm. mGy. LIMITATIONS: None. FINDINGS: VENTRICLES: Normal size and contour. CEREBRUM: No masses. No hemorrhage. No midline shift. No evidence for acute infarction. Normal gra y/white matter differentiation. No areas of low density in the white matter. CEREBELLUM: No masses. No hemorrhage. No alteration of density. No evidence for acute infarction. EXTRAAXIAL SPACES: No fluid collections. No masses. ORBITS AND GLOBE: No intra- or extraconal masses. Normal contour of globe without masses. CALVARIUM: No fracture. PARANASAL SINUSES: No fluid or mucosal thickening. SOFT TISSUES: No mass or hematoma. OTHER: No other significant finding. IMPRESSION: NORMAL BRAIN CT WITHOUT CONTRAST. EVIDENCE OF ACUTE STROKE: NO. COMMENT: Quality ID # [id number]: Final reports with documentation of one or more dose reduction techniques (e.g., Automated exposure control, adjustment of the mA and/or kV according to patient size, use of iterative reconstruction technique) TECHNICAL DOCUMENTATION: JOB ID: [id number] 2010 [employer]- All Rights Reserved Reading location - IP/workstation name: [email or web address]
[2019-05-11 18:02] LABS: ALKALINE PHOSPHATASE 122 U/L (38-126); ANION GAP 10 (5-19); ASPARTATE AMINO TRANSFERASE 30 U/L (17-59); BILIRUBIN,DIRECT 0.3 mg/dL (0.0-0.4); BILIRUBIN,TOTAL 0.5 mg/dL (0.2-1.3); BLOOD UREA NITROGEN 16 mg/dL (7-20); CARBON DIOXIDE 29 mmol/L (22-30); CHLORIDE 98 mmol/L (98-107); GLUCOSE 92 mg/dL (75-110); POTASSIUM 4.8 mmol/L (3.6-5.0); TOTAL PROTEIN 7.3 g/dL (6.3-8.2)
--- NOTE | 2019-05-11 21:41 | RADIOLOGY REPORT (SQ) ---
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 COMPARISON: None. FINDINGS: No acute fracture or dislocation is seen. The joint spaces are preserved. No elbow joint effusion is seen. IMPRESSION: No acute fracture or malalignment.
--- NOTE | 2019-05-11 21:46 | ER Document Report ---
Entered by KEIRY DE SCRIBE 05/11/192055 Acting as scribe for:CINDI PIZANO IV, MD ED General - General Chief Complaint: Passed Out Prior to Arrival Stated Complaint: LIGHTHEADED,COUGH Time Seen by Provider: 05/11/19 16:28 Primary Care Provider: MARICARMEN JACK MD [Primary Care Provider] - Follow up as needed Mode of Arrival: Ambulatory Information source: Patient Notes: This 53 year old male patient presents to the ED today with complaints of a syncopal episode that occurred prior to arrival. Patient states that he choked on a [place] june, resulting in a coughing spell that caused him to become lightheaded and pass out. Patient was found on the floor by his son who stated that the patient fell into the fridge, hit his head, and lost consciousness for about x5-10 seconds. Patient states that he fell on his right elbow. Patient reports that he has had a productive cough with yellow/orange sputum for the past x1 week. Patient notes that he is on Augmentin currently for bronchitis and a sinus infection. Patient also reports dizziness, reproducible chest pain, and shortness of breath. Patient denies nausea or vomiting post fall. TRAVEL OUTSIDE OF THE [place] IN LAST 30 DAYS: No - Related Data Allergies/Adverse Reactions: pseudoephedrine [From Sudafed] Allergy (Verified 11/10/18 06:31) Sulfa (Sulfonamide Antibiotics) Allergy (Verified 11/10/18 06:31) Home Medications: ranolazine, atorvastatin, metformin, gabapentin, divalproex, haloperidol, vit d3, stool softener, plavix, citalopram, ibuprofen, nitro, isosorbide, aspirin, multivitamin, amlodipine, doxazosin, flonase, augmentin, lisinopril, pantoprazole, trihexyphenidyl Past Medical History - General Information source: Patient - Social History Smoking Status: Never Smoker Cigarette use (# per day): No Chew tobacco use (# tins/day): No Smoking Education Provided: No Frequency of alcohol use: None Drug Abuse: None Family History: Reviewed & Not Pertinent, CAD, DM, Hyperlipidemia, Hypertension, Malignancy Patient has suicidal ideation: No Patient has homicidal ideation: No - Past Medical History Cardiac Medical History: Reports: Hx Coronary Artery Disease, Hx Heart Attack, Hx Hypercholesterolemia - Hypertriglyceridemia, Hx Hypertension Pulmonary Medical History: Reports: Hx Sleep Apnea - CPAP prescribed Endocrine Medical History: Reports: Hx Diabetes Mellitus Type 2 GI Medical History: Reports: Hx Gastroesophageal Reflux Disease Psychiatric Medical History: Reports: Hx Depression, Hx Post Traumatic Stress Disorder Past Surgical History: Reports: Hx Abdominal Surgery, Hx Appendectomy, Hx Cardiac Catheterization, Hx Coronary Stent, Hx Orthopedic Surgery - right shoulder, bilat knee replacement, Other - Colonoscopy - Immunizations Immunizations up to date: Yes Hx Diphtheria, Pertussis, Tetanus Vaccination: Yes Review of Systems - Review of Systems Constitutional: No symptoms reported EENT: No symptoms reported Cardiovascular: See HPI, Chest pain, Syncope, Dizziness, Lightheaded Respiratory: See HPI, Cough, Short of breath, Sputum Gastrointestinal: See HPI. denies: Nausea, Vomiting Genitourinary: No symptoms reported Male Genitourinary: No symptoms reported Musculoskeletal: See HPI, Other - Right elbow pain Skin: No symptoms reported Hematologic/Lymphatic: No symptoms reported Neurological/Psychological: See HPI, Lost consciousness -: Yes All other systems reviewed and negative Physical Exam - Vital signs Vitals: Temp Pulse Resp BP Pulse Ox 99.0 F 57 L 20 134/75 H 95 05/11/19 16:08 05/11/19 16:08 05/11/19 16:08 05/11/19 16:08 05/11/19 16:08 - General General appearance: Alert, Other - Very talkative. Logical train of thought. - HEENT Head: Normocephalic, Atraumatic Eyes: Normal Pupils: PERRL - Respiratory Respiratory status: No respiratory distress Chest status: Nontender Breath sounds: Normal Chest palpation: Normal - Cardiovascular Rhythm: Regular Heart sounds: Normal auscultation Murmur: No - Abdominal Inspection: Normal Distension: No distension Bowel sounds: Normal Tenderness: Nontender Organomegaly: No organomegaly - Back Back: Normal, Nontender - Extremities General upper extremity: Normal inspection General lower extremity: Normal inspection - Neurological Neuro grossly intact: Yes - Psychological Associated symptoms: Normal affect, Normal mood - Skin Skin Temperature: Warm Skin Moisture: Dry Skin Color: Normal Course - Re-evaluation Re-evalutation: 05/11/19 21:49 Results of ED MSE discussed with patient. All questions were answered prior to discharge. Emergency signs and symptoms, reasons to return to the emergency department discussed with patient. - Vital Signs Vital signs: Temp Pulse Resp BP Pulse Ox 99.0 F 57 L 26 H 131/77 H 99 05/11/19 16:08 05/11/19 16:08 05/11/19 21:02 05/11/19 21:02 05/11/19 21:02 - Laboratory Result Diagrams: 05/11/19 17:25 05/11/19 17:25 Laboratory results interpreted by me: 05/11/19 05/11/19 17:25 17:25 RBC 4.15 L Hgb 12.0 L Hct 35.1 L RDW 14.7 H Sodium 136.9 L Creatinine 1.38 H Est GFR (MDRD) Non-Af 53 L - Diagnostic Test Radiology reviewed: Reports reviewed - EKG Interpretation by Me Additional EKG results interpreted by me: 05/11/19 21:37 EKG obtained on 05/11/2019 at 2037 hrs. was interpreted by this MD. Findings: Normal sinus rhythm, rate 67, axis normal, P waves proceed QRS complexes, QRS complexes appeared narrow, there are no obvious patterns of ST segment elevation or depression present to suggest acute myocardial ischemia or infarction. Impression normal sinus rhythm with nonspecific ST segments. Discharge - Discharge Clinical Impression: Syncope Qualifiers: Syncope type: unspecified Qualified Code(s): R55 - Syncope and collapse Head contusion Qualifiers: Encounter type: initial encounter Contusion of head detail: unspecified part of head Qualified Code(s): S00.93XA - Contusion of unspecified part of head, initial encounter Contusion of right elbow Qualifiers: Encounter type: initial encounter Qualified Code(s): S50.01XA - Contusion of right elbow, initial encounter Condition: Good Disposition: HOME, SELF-CARE Additional Instructions: Return to the Emergency Department without delay if any worse. HOME CARE INSTRUCTIONS & INFORMATION: Thank you for choosing us for your medical needs. We hope you're satisfied with the care you received. After you leave, you must properly care for your problem and, at the same time, observe its progress. Any condition can change. Some illnesses can change rapidly over hours or days. If your condition worsens, return to the Emergency Department or see your physician promptly. ABOUT YOUR X-RAYS AND EKG'S: If you had an EKG or X-rays taken, they have been read by the Emergency Physician. The X-rays and EKG's will also be read by a Radiologist or Speech Clinician within 24 hours. If discrepancies are noted, you will be notified by telephone. Please be certain the ED has a correct telephone number & address where you can be reached. Also, realize that some fractures or abnormalities do not show up on initial X-rays. If your symptoms continue, see your physician. ABOUT YOUR LABORATORY TEST: If you had laboratory tests, the results have been reviewed by the Emergency Physician. Some test results (for example cultures) may not be available for several days. You will be contacted if any test result shows you need additional treatment. Please be certain the ED has a correct telephone number and address where you can be reached. ABOUT YOUR MEDICATIONS: You will receive instructions on how to take your medicine on the prescription label you receive. Additional information may be provided by the Pharmacy. If you have questions afterwards, call the ED for clarification or further instructions. Some prescribed medications may cause drowsiness. Do not perform tasks such as driving a car or operating machinery without consulting your Pharmacist. If you feel you need a refill of pain medication, your condition will need re-evaluation. Please do not call for a refill of any medication. ABOUT YOUR SIGNATURE: Signature of this document acknowledges to followin. Understanding that you received emergency treatment and that you may be released before al medical problems are known or treated. Please be certain the ED has a correct phone number & address where you can be reached. 2. Acknowledgement that you will arrange for follow-up care as recommended. 3. Authorization for the Emergency Physician to provide information to your follow-up Physician in order to maximize your care. AT ANY TIME, IF YOUR SYMPTOMS CHANGE SIGNIFICANTLY OR WORSEN OR YOU DEVELOP NEW SYMPTOMS, RETURN TO THE EMERGENCY DEPARTMENT IMMEDIATELY FOR RE-EVALUATION. OUR GOAL IS TO PROVIDE EXCELLENT MEDICAL CARE! WE HOPE THAT WE HAVE MET YOUR EXPECTATIONS DURING YOUR EMERGENCY DEPARTMENT VISIT AND THAT YOU FEEL YOU HAVE RECEIVED EXCELLENT CARE! Contusion Your injury has resulted in a contusion -- a crushing of the deep tissues. No injury to important structures was detected during the physician's exam. Contusions vary in the amount of pain they cause, and in the length of time requ ired for healing. Typically, the area will become bruised, and will remain painful to touch for two or three weeks. However, most patients are back to working and playing within a few days. After the initial period of rest and cold-packs, your symptoms (together with the doctor's recommendations) will determine how rapidly you can get back to full activity. Usually this means "do what feels okay, but don't do things that hurt." If re-examination was recommended, it's important to follow up as instructed. Call the doctor or return any time if pain increases, if swelling becomes severe, if you develop numbness or weakness in an injured extremity, or if any other alarming symptoms occur. Syncopal Episode Syncope (fainting or near-fainting) can occur from many different health problems. Or it can be a simple fainting spell requiring no treatment. It is safe for you to go home, but further evaluation will likely be necessary. Your work-up may include tests for internal bleeding, heart disease, medication problems, or near-strokes. Tests are not always required, however, depending on the nature of your problem. The warning signs of an impending faint include: dizziness, lightheadedness, nausea, hot flashes, tingling, and weakness. If this happens, lay down and put your feet up, then wait until all of these symptoms have passed before standing up again. If these episodes become recurrent, or if you develop chest pain, heart palpitations, mental confusion, blurred vision, or headache, then you should call the physician, or go to the emergency room. Referrals: MARICARMEN JACK MD [Primary Care Provider] - 05/12/19 I personally performed the services described in the documentation, reviewed and edited the documentation which was dictated to the scribe in my presence, and it accurately records my words and actions.
[2019-05-11 22:03] VITALS: BP 124/73
--- NOTE | 2019-05-11 23:22 | EKG REPORT ---
SEVERITY:- NORMAL ECG - SINUS RHYTHM : Confirmed by: Chris Cortez MD 11-May-2019 23:21:55
--- NOTE | 2019-05-11 23:22 | EKG REPORT ---
SEVERITY:- DEFECTIVE ECG - RIGHT AND LEFT ARM LEADS REVERSED, PLEASE REPEAT ECG : Confirmed by: Chris Cortez MD 11-May-2019 23:21:19
--- NOTE | 2019-05-12 20:20 | EKG REPORT ---
SEVERITY:- BORDERLINE ECG - SINUS RHYTHM BORDERLINE ST ELEVATION, INFERIOR LEADS : Confirmed by: Chris Cortez MD 12-May-2019 20:19:22
== END 2019-05-11 22:13 | disposition home or self-care (01) ==
LOC: ER 16:03
DX: S00.93XA Contusion of unspecified part of head, initial encounter (principal); S50.01XA Contusion of right elbow, initial encounter; W19.XXXA Unspecified fall, initial encounter; W22.09XA Striking against other stationary object, initial encounter; Y93.89 Activity, other specified; Y92.009 Unspecified place in unspecified non-institutional (private) residence as the place of occurrence of the external cause; R55 Syncope and collapse; J40 Bronchitis, not specified as acute or chronic; J32.9 Chronic sinusitis, unspecified; R05 Cough; R42 Dizziness and giddiness; R07.9 Chest pain, unspecified; R06.02 Shortness of breath; I25.10 Atherosclerotic heart disease of native coronary artery without angina pectoris; I10 Essential (primary) hypertension; I25.2 Old myocardial infarction; E78.1 Pure hyperglyceridemia; E78.00 Pure hypercholesterolemia, unspecified; F32.9 Major depressive disorder, single episode, unspecified; K21.9 Gastro-esophageal reflux disease without esophagitis; Z79.899 Other long term (current) drug therapy; Z79.84 Long term (current) use of oral hypoglycemic drugs; Z79.02 Long term (current) use of antithrombotics/antiplatelets; Z79.82 Long term (current) use of aspirin; Z79.1 Long term (current) use of non-steroidal anti-inflammatories (NSAID); Z95.5 Presence of coronary angioplasty implant and graft; Z88.8 Allergy status to other drugs, medicaments and biological substances; Z88.2 Allergy status to sulfonamides
CPT/HCPCS: 36415; 70450; 71046; 72050; 80053; 84484; 85025; 93005; 93010; 99284

== ENCOUNTER 2019-05-15 08:49 | Day surgery (SDC) | payer MEDICARE ==
[~2019-05-15 08:49] MED LIST changes: -BUPIVACAINE HCL 0.5 % INJ/PF 30 ML SDV ONE; -LIDOCAINE 1% INJ-PF (10 MG/ML) 30 ML SDV ONE; +PROPOFOL INJ 200 MG/20 ML VIAL IV ONE
[2019-05-15 11:24] VITALS: BP 116/65
--- NOTE | 2019-05-15 12:56 | Operative Report ---
Operative Report DATE OF SURGERY: 05/15/19 Operative Report: The risk, benefits and alternatives of the procedure including the risk of bleeding, perforation requiring surgery have been explained to the patient in detail and informed consent has been obtained. Timeout was called. Propofol medication has been administered. Rectal examination is done which did not reveal any masses, tears or fissures. Olympus videoscope was introduced into the patient's rectum. It is carefully guided all the way to the cecum. Prep was good. All segments are visualized. Retroflexion maneuvers performed. PREOPERATIVE DIAGNOSIS: Colorectal cancer screening POSTOPERATIVE DIAGNOSIS: Normal screening colonoscopy OPERATION: Diagnostic colonoscopy SURGEON: DWAINE ADAMSON ANESTHESIA: LMAC TISSUE REMOVED OR ALTERED: None. COMPLICATIONS: None. ESTIMATED BLOOD LOSS: None. INTRAOPERATIVE FINDINGS: As noted above. PROCEDURE: Patient tolerated the procedure well. No immediate postprocedure complications are noted. Patient is discharged in good condition. Discharge date 05/15/2019. Discharge diet: Regular. Discharge activity: Regular. 2 to 3-week follow-up to discuss findings. Patient is instructed to call the office or proceed to the emergency room should there be any further problems or questions. 10-year surveillance colonoscopy.
== END 2019-05-15 11:25 | disposition home or self-care (01) ==
LOC: END 08:49
PROVIDERS: ATTEND Internal Medicine Gastroenterology
DX: K62.5 Hemorrhage of anus and rectum (principal); Z80.0 Family history of malignant neoplasm of digestive organs; Z86.010 Personal history of colon polyps; I10 Essential (primary) hypertension; E11.9 Type 2 diabetes mellitus without complications; I25.2 Old myocardial infarction; D64.9 Anemia, unspecified
CPT/HCPCS: 45378; 82962; 00811; J2704; 811

== ENCOUNTER → 2019-06-05 | Outpatient (CLI) | payer MEDICARE ==
--- NOTE | 2019-06-05 16:01 | RADIOLOGY REPORT (SQ) ---
EXAM DESCRIPTION: CAROTID DOPPLER COMPLETED DATE/TIME: 06/05/2019 3:28 pm REASON FOR STUDY: SYNCOPE R55 SYNCOPE AND COLLAPSE COMPARISON: None. TECHNIQUE: Grayscale ultrasound, Doppler velocity and spectra, and color Doppler images acquired of the extra-cranial carotid and vertebral arteries. Images stored on PACS. LIMITATIONS: None. FINDINGS: RIGHT CAROTID CCA Velocities: Within normal limits. ICA Velocities Peak systolic 64 cm/s. End diastolic 20 cm/s. Proximal ICA/CCA peak systolic ratio 0.87. Spectra normal. No significant plaque. Minimal intimal thickening. LEFT CAROTID CCA Velocities: Within normal limits. ICA Velocities Peak systolic 54 cm/s. End diastolic 19 cm/s. Proximal ICA/CCA peak systolic ratio 1.16. Spectra normal. No significant plaque. Minimal intimal thickening. VERTEBRAL ARTERIES: Antegrade flow. Normal waveforms. SUBCLAVIAN ARTERIES: Not imaged. OTHER: No other significant finding. IMPRESSION: NO HEMODYNAMICALLY SIGNIFICANT STENOSIS. COMMENT: Quality ID #195: Velocity criteria are extrapolated from the diameter data as defined by t he Society of Radiologists in Ultrasound Consensus Conference. Radiology 2003: 229; 340-346. TECHNICAL DOCUMENTATION: JOB ID: [id number] [employer]- All Rights Reserved Reading location - IP/workstation name: [email or web address]
== END ==
LOC: SP 11:34
PROVIDERS: ATTEND Family Medicine
DX: R55 Syncope and collapse (principal)
CPT/HCPCS: 93880

== ENCOUNTER → 2019-10-20 | Outpatient (CLI) | payer MEDICARE, OTHER ==
--- NOTE | 2019-10-20 14:58 | RADIOLOGY REPORT (SQ) ---
EXAM DESCRIPTION: MRI RT UPPER JOINT WITHOUT IMAGES COMPLETED DATE/TIME: 10/20/2019 8:16 am REASON FOR STUDY: M75.101 UNSP ROTATR-CUFF TEAR/RUPTR OF RIGHT. Rotator cuff repair 7 years ago. I ncreased pain with lifting after a lifting injury a few months ago. Shoulder pain, popping, weakness , decreased range of motion for 3 months. SHOULDER, NOT TRAUMA M75.101 UNSP ROTATR-CUFF TEAR/RUPTR OF RIGHT SHOULDER, NOT T COMPARISON: Chest radiograph, 05/11/2019. TECHNIQUE: Right shoulder images acquired and stored on PACS. Multiplanar imaging to include fat sen sitive sequences such as T1, water sensitive sequences such as FST2/STIR, cartilage sensitive sequenc es such as FSPD/gradient-echo sequences. LIMITATIONS: None. FINDINGS: BONE MARROW AND CORTEX: There is bone marrow edema in the distal acromion and clavicle. O therwise normal appearance. No acute fracture or cortical disruption. JOINT OR BURSAL EFFUSION: No significant joint effusion. Small amount of fluid in the subacromion/ s ubdeltoid bursa. No suggestion of loose bodies. GLENO-HUMERAL ARTICULATION: Normal articulation. No subluxation. No cystic change. No osteophytes or cartilage loss. ACROMION AND AC JOINT: Edema and inflammatory reaction at the acromioclavicular joint. No down-slopi ng or distal spur. Sub-acromial space maintained. Moderate AC joint arthropathy. ROTATOR CUFF AND INTERVAL: There is a full-thickness tear of the supraspinatus tendon with approximat smith 6 mm retraction. No muscle atrophy. The infraspinatus, subscapularis, and teres minor tendons a re intact. No rotator interval tear. No rotator interval thickening to suggest adhesive capsulitis. LABRUM AND BICEPS LABRAL COMPLEX: Intact. No labral tear. Intra-articular long-head biceps tendon n ormal. Distal biceps in normal location in bicipital groove. REMAINDER OF LABRUM AND IGHL : No gross tear or paralabral cyst formation. Labral evaluation is less than optimal without joint distention. No thickening of IGHL to suggest adhesive capsulitis. PERIARTICULAR AND ADJACENT SOFT TISSUES: No masses or abnormal nodes. OTHER: No other significant finding. IMPRESSION: 1. Supraspinatus tendon rupture with 6 mm retraction consistent with rotator cuff tear. 2. Moderate acromioclavicular joint arthropathy. TECHNICAL DOCUMENTATION: JOB ID: [id number] 2010 [employer]- All Rights Reserved Reading location - IP/workstation name: [id number]
== END ==
LOC: RAD 08:27
PROVIDERS: ATTEND Family Medicine
DX: M75.101 Unspecified rotator cuff tear or rupture of right shoulder, not specified as traumatic (principal)

== ENCOUNTER 2020-03-17 14:39 | Emergency (ER) | payer MEDICARE, OTHER ==
--- NOTE | 2020-03-17 15:07 | ER Document Report ---
ED Medical Screen (RME) - General Stated Complaint: HEADACHE/TOUNGE NUMB/CHEST PAIN Time Seen by Provider: 03/17/20 14:59 Primary Care Provider: TALAT OLIVIA MD [Primary Care Provider] - Follow up as needed Notes: Patient presents complaining of feeling lightheaded and feeling funny in the head. Patient states that he has numbness from his head all the way down to his waist bilaterally. Patient complains of his tongue feeling numb and that his speech is altered. Patient denies any chest discomfort although reports irregular heart rate whenever his symptoms started 30 minutes ago. Patient does have a history of hypertension and previous NE with stent placement. I have greeted and performed a rapid initial assessment of this patient. A comprehensive ED assessment and evaluation of the patient, analysis of test results and completion of the medical decision making process will be conducted by additional ED providers. TRAVEL OUTSIDE OF THE [place] IN LAST 30 DAYS: No - Related Data Allergies/Adverse Reactions: pseudoephedrine [From Sudafed] Allergy (Mild, Verified 03/17/20 14:56) Sulfa (Sulfonamide Antibiotics) Allergy (Mild, Verified 03/17/20 14:56) Past Medical History - Past Medical History Cardiac Medical History: Reports: Hx Coronary Artery Disease, Hx Heart Attack - 2010, STENT PLACEMENT RECURRING BLOCKAGE , Hx Hypercholesterolemia - Hypertriglyceridemia, Hx Hypertension Denies: Hx Atrial Fibrillation, Hx Congestive Heart Failure Pulmonary Medical History: Reports: Hx Bronchitis - SINUS INFECTION, Hx Sleep Apnea - CPAP prescribed Denies: Hx Asthma, Hx COPD, Hx Pneumonia Neurological Medical History: Denies: Hx Cerebrovascular Accident, Hx Seizures Endocrine Medical History: Reports: Hx Diabetes Mellitus Type 2. Denies: Hx Diabetes Mellitus Type 1, Hx Hyperthyroidism, Hx Hypothyroidism Renal/ Medical History: Denies: Hx Peritoneal Dialysis GI Medical History: Reports: Hx Gastroesophageal Reflux Disease. Denies: Hx Cirrhosis, Hx Crohn's Disease, Hx Hepatitis, Hx Ulcerative Colitis Musculoskeltal Medical History: Reports Hx Arthritis - BACK AND NECK, Denies Hx Gout Skin Medical History: Denies Hx Eczema, Denies Hx Psoriasis Psychiatric Medical History: Reports: Hx Depression, Hx Post Traumatic Stress Disorder Infectious Medical History: Denies: Hx Hepatitis Past Surgical History: Reports: Hx Abdominal Surgery, Hx Appendectomy, Hx Cardiac Catheterization, Hx Coronary Stent, Hx Orthopedic Surgery - right shoulder, bilat knee replacement, Other - Colonoscopy - Immunizations Immunizations up to date: Yes Hx Diphtheria, Pertussis, Tetanus Vaccination: Yes Physical Exam - Vital signs Vitals: Temp Pulse Resp BP Pulse Ox 99.0 F 77 20 94/63 L 98 03/17/20 14:53 03/17/20 14:53 03/17/20 14:53 03/17/20 14:53 03/17/20 14:53 - Neurological Neuro grossly intact: Yes Juan Jose Coma Scale Eye Opening: Spontaneous Juan Jose Coma Scale Verbal: Oriented [place] Coma Scale Motor: Obeys Commands [place] Coma Scale Total: 15 Cranial nerves: No: Facial palsy, Tongue deviation Course - Re-evaluation Re-evalutation: 03/17/20 15:06 Charge nurse Cat advised of stroke evaluation for patient, patient will be assigned to room 14. - Vital Signs Vital signs: Temp Pulse Resp BP Pulse Ox 99.0 F 77 20 94/63 L 98 03/17/20 14:53 03/17/20 14:53 03/17/20 14:53 03/17/20 14:53 03/17/20 14:53 Doctor's Discharge - Discharge Referrals: TALAT OLIVIA MD [Primary Care Provider] - Follow up as needed
--- NOTE | 2020-03-17 15:32 | RADIOLOGY REPORT (SQ) ---
EXAM DESCRIPTION: CHEST SINGLE VIEW<Procedure Description>CHEST SINGLE VIEW IMAGES COMPLETED DATE/TIME: 03/17/2020 3:14 pm<Completed Time>03/17/2020 3:14 pm REASON FOR STUDY: tongue numb, speech altered<Reason For Exam>tongue numb, speech altered <ADM DX> COMPARISON: 05/11/2019 NUMBER OF VIEWS: One. TECHNIQUE: Single frontal radiographic view of the chest acquired. RADIATION DOSE: <RADIATION DOSE> LIMITATIONS: None. FINDINGS: LUNGS AND PLEURA: No pneumothorax. No consolidation or pleural effusion. MEDIASTINUM AND HILAR STRUCTURES: Stable. HEART AND VASCULAR STRUCTURES: Stable. BONES: No acute findings. HARDWARE: None in the chest. OTHER: No other significant findings. IMPRESSION: NO ACUTE FINDINGS. TECHNICAL DOCUMENTATION: JOB ID: [id number]<Job ID>[id number] [place]-72 2010 [employer]- All Rights Reserved Reading location - IP/workstation name: [email or web address]
--- NOTE | 2020-03-17 15:38 | RADIOLOGY REPORT (SQ) ---
EXAM DESCRIPTION: CT HEAD WITHOUT IMAGES COMPLETED DATE/TIME: 03/17/2020 3:23 pm REASON FOR STUDY: tongue numb, speech altered, head "feels funny" COMPARISON: 05/11/2019 TECHNIQUE: Axial images acquired through the brain without intravenous contrast. Images reviewed wit h bone, brain and subdural windows. Images stored on PACS. All CT scanners at this facility use dose modulation, iterative reconstruction, and/or weight based d osing when appropriate to reduce radiation dose to as low as reasonably achievable (ALARA). [facility]: Dose Right [facility]: CareDose [facility]: Dose Right [facility]: Teradose 4D [facility]: [id number] RADIATION DOSE: CT Rad equipment meets quality standard of care and radiation dose reduction techniq ues were employed. CTDIvol: 49.0 mGy. DLP: 936 mGy-cm.. LIMITATIONS: None. FINDINGS: VENTRICLES: Normal size and contour. CEREBRUM: No masses. No hemorrhage. No midline shift. Age appropriate white matter. No evidence for a cute infarction. CEREBELLUM: No masses. No hemorrhage. No alteration of density. No evidence for acute infarction. EXTRA-AXIAL SPACES: No fluid collections. ORBITS AND GLOBE: No intra- or extraconal masses. Normal contour of globe without masses. CALVARIUM: No fracture. PARANASAL SINUSES: No fluid or mucosal thickening. SOFT TISSUES: No mass or hematoma. OTHER: No other significant finding. IMPRESSION: NO ACUTE INTRACRANIAL FINDINGS. EVIDENCE OF ACUTE STROKE: NO. COMMENT: The findings were sent to the Radiology Results Communication Center at 15:32 on 0 to be communicated to a licensed caregiver. TECHNICAL DOCUMENTATION: JOB ID: [id number] [place]-72 Quality ID # 436: Final reports with documentation of one or more dose reduction techniques (e.g., Au tomated exposure control, adjustment of the mA and/or kV according to patient size, use of iterative reconstruction technique) 2010 [employer]- All Rights Reserved Reading location - IP/workstation name: [email or web address]
[2020-03-17 15:39] LABS: ABSOLUTE EOSINOPHILS # (AUTO) 0.2 10^3/uL (0.0-0.6); ABSOLUTE LYMPHOCYTES (AUTO) 2.6 10^3/uL (0.5-4.7); ABSOLUTE MONOCYTES (AUTO) 1.3 10^3/uL (0.1-1.4); ABSOLUTE NEUT (AUTO) 6.6 10^3/uL (1.7-8.2); BASOPHILS % (AUTO) 0.3 % (0-2); EOSINOPHILS % (AUTO) 1.9 % (0-6); HEMATOCRIT 33.2 % (37.9-51.0); HEMOGLOBIN 11.3 g/dL (13.5-17.0); LYMPHOCYTES % (AUTO) 24.5 % (13-45); MEAN CORPUSCULAR HEMOGLOBIN 26.4 pg (27.0-33.4); MEAN CORPUSCULAR HGB CONC 34.1 g/dL (32.0-36.0); MEAN CORPUSCULAR VOLUME 78 fl (80-97); MONOCYTES % (AUTO) 11.8 % (3-13); PLATELET COUNT 387 10^3/uL (150-450); RED BLOOD COUNT 4.29 10^6/uL (4.35-5.55); RED CELL DISTRIBUTION WIDTH 17.2 % (11.5-14.0); SEGMENTED NEUTROPHILS % (AUTO) 61.5 % (42-78); TOTAL CELLS COUNTED % (AUTO) 100 %; WHITE BLOOD COUNT 10.7 10^3/uL (4.0-10.5)
[2020-03-17 15:42] LABS: INTERNATIONAL RATION (INR) 0.98; PROTHROMBIN TIME 13.2 SEC (11.4-15.4)
[2020-03-17 15:43] LABS: PARTIAL THROMBOPLASTIN TIME 27.6 SEC (23.5-35.8)
[2020-03-17 15:57] LABS: ALBUMIN 3.8 g/dL (3.5-5.0); ALKALINE PHOSPHATASE 132 U/L (38-126); ANION GAP 9 (5-19); ASPARTATE AMINO TRANSFERASE 24 U/L (17-59); BILIRUBIN,DIRECT 0.2 mg/dL (0.0-0.4); BILIRUBIN,TOTAL 0.5 mg/dL (0.2-1.3); BLOOD UREA NITROGEN 19 mg/dL (7-20); CALCIUM 8.9 mg/dL (8.4-10.2); CARBON DIOXIDE 28 mmol/L (22-30); CHLORIDE 97 mmol/L (98-107); CREATINE KINASE 174 U/L (55-170); GLUCOSE 104 mg/dL (75-110); POTASSIUM 4.8 mmol/L (3.6-5.0); TOTAL PROTEIN 6.7 g/dL (6.3-8.2)
[2020-03-17 16:09] LABS: CREATINE KINASE MB 0.89 ng/mL (<4.55)
[2020-03-17 16:11] LABS: TROPONIN I < 0.012 ng/mL
--- NOTE | 2020-03-17 20:41 | EKG REPORT ---
SEVERITY:- OTHERWISE NORMAL ECG - SINUS RHYTHM BORDERLINE LEFT AXIS DEVIATION : Confirmed by: Ivette Tapia MD 17-Mar-2020 20:40:44
--- NOTE | 2020-03-17 21:50 | ER Document Report ---
ED General - General Chief Complaint: Numbness Stated Complaint: HEADACHE/TOUNGE NUMB/CHEST PAIN Time Seen by Provider: 03/17/20 14:59 Primary Care Provider: ALEXANDER SWAN MD [NO LOCAL MD] - Follow up as needed TALAT OLIVIA MD [ACTIVE STAFF] - Follow up as needed Mode of Arrival: Ambulatory Information source: Patient Notes: This 54-year-old male presents to the emergency department with a complaint of headache in the top of his head with a numbness goes all the way down the head neck and down to his waist. He has noted intermittent episodes with a numbness that goes into his tongue when he feels the headache at the top of his scalp. He denies a loss of motor function or speech difficulty. He also denies a prior history of similar episodes. He has a history of hypertension and takes lisinopril. He states that the pressure has been at times elevated. He is feeling better. TRAVEL OUTSIDE OF THE [place] IN LAST 30 DAYS: No - Related Data Allergies/Adverse Reactions: pseudoephedrine [From Sudafed] Allergy (Mild, Verified 03/17/20 14:56) Sulfa (Sulfonamide Antibiotics) Allergy (Mild, Verified 03/17/20 14:56) Home Medications: pioglitazone. dixazosin. methocarbamol. citalopram. lasix. metformin. haloperidol. pantoprazole. ranolazine. clopidogrel Past Medical History - Social History Smoking Status: Unknown if Ever Smoked Family History: Reviewed & Not Pertinent, CAD, DM, Hyperlipidemia, Hypertension, Malignancy Patient has homicidal ideation: No - Past Medical History Cardiac Medical History: Reports: Hx Coronary Artery Disease, Hx Heart Attack - 2010, STENT PLACEMENT RECURRING BLOCKAGE , Hx Hypercholesterolemia - Hypertriglyceridemia, Hx Hypertension Denies: Hx Atrial Fibrillation, Hx Congestive Heart Failure Pulmonary Medical History: Reports: Hx Bronchitis - SINUS INFECTION, Hx Sleep Apnea - CPAP prescribed Denies: Hx Asthma, Hx COPD, Hx Pneumonia Neurological Medical History: Denies: Hx Cerebrovascular Accident, Hx Seizures Endocrine Medical History: Reports: Hx Diabetes Mellitus Type 2. Denies: Hx Diabetes Mellitus Type 1, Hx Hyperthyroidism, Hx Hypothyroidism Renal/ Medical History: Denies: Hx Peritoneal Dialysis GI Medical History: Reports: Hx Gastroesophageal Reflux Disease. Denies: Hx Cirrhosis, Hx Crohn's Disease, Hx Hepatitis, Hx Ulcerative Colitis Musculoskeletal Medical History: Reports Hx Arthritis - BACK AND NECK, Denies Hx Gout Skin Medical History: Denies Hx Eczema, Denies Hx Psoriasis Psychiatric Medical History: Reports: Hx Depression, Hx Post Traumatic Stress Disorder Infectious Medical History: Denies: Hx Hepatitis Past Surgical History: Reports: Hx Abdominal Surgery, Hx Appendectomy, Hx Cardiac Catheterization, Hx Coronary Stent, Hx Orthopedic Surgery - right shoulder, bilat knee replacement, Other - Colonoscopy - Immunizations Immunizations up to date: Yes Hx Diphtheria, Pertussis, Tetanus Vaccination: Yes Review of Systems - Review of Systems Notes: Constitutional: Negative for fever. HENT: Negative for sore throat. Eyes: Negative for visual changes. Cardiovascular: Negative for chest pain. Respiratory: Negative for shortness of breath. Gastrointestinal: Negative for abdominal pain, vomiting or diarrhea. Genitourinary: Negative for dysuria. Musculoskeletal: Negative for back pain. Skin: Negative for rash. Neurological: See HPI 10 point ROS negative except as marked above and in HPI. Physical Exam - Vital signs Vitals: Temp Pulse Resp BP Pulse Ox 99.0 F 77 20 94/63 L 98 03/17/20 14:53 03/17/20 14:53 03/17/20 14:53 03/17/20 14:53 03/17/20 14:53 - Notes Notes: PHYSICAL EXAMINATION: Physical Exam: General: Well-nourished well-developed 54-year-old in no acute distress HEENT: NC/AT, pupils equal round and reactive to light, MM moist,nares clear, oropharynx clear, airway patent Neck: supple, no adenopathy, no masses. Good range of motion Lungs: clear, no wheezing, no rales no rhonchi CVS: Regular rate and rhythm no murmur gallop or rub Abdomen: Soft, active, nontender, no masses, no hepatosplenomegaly Ext: No edema, clubbing or cyanosis. Neuro: Alert and responsive, moving all 4 extremities on command, cranial nerves intact, no focal findings Skin: Intact no open lesions, no rash Course - Re-evaluation Re-evalutation: 03/17/20 21:49 Patient with some atypical neurologic symptoms involving numbness and headaches in the top of the scalp and tingling and numbness in the tongue and also extending down his thighs and into the area of his waist. Apparently new onset today. Patient denies any new medications or focal motor or sensory loss. The symptoms were intermittent however given there severity he has come to emergency department for further evaluation. CT scan of the head was negative labs includ ing his cardiac enzymes were also negative. - Vital Signs Vital signs: Temp Pulse Resp BP Pulse Ox 99.0 F 75 21 H 155/81 H 97 03/17/20 14:56 03/17/20 15:45 03/17/20 22:01 03/17/20 22:00 03/17/20 22:01 - Laboratory Results Result Diagrams: 03/17/20 15:28 03/17/20 15:28 Laboratory Results Interpreted: 03/17/20 03/17/20 03/17/20 15:28 15:28 15:34 WBC 10.7 H RBC 4.29 L Hgb 11.3 L Hct 33.2 L MCV 78 L MCH 26.4 L RDW 17.2 H Sodium 134.1 L Chloride 97 L Creatinine 1.48 H Est GFR ( Amer) 59 L Est GFR (MDRD) Non-Af 49 L POC Glucose 120 H Alkaline Phosphatase 132 H Creatine Kinase 174 H 03/17/20 21:50 I have reviewed laboratory data and used this information for the treatment decisions regarding the patient. Critical Laboratory Results Reviewed: No Critical Results - Radiology Results Radiology Results Interpreted: 03/17/20 21:50 Chest X-Ray 03/17/20 15:03 IMPRESSION: NO ACUTE FINDINGS. Head CT 03/17/20 15:03 IMPRESSION: NO ACUTE INTRACRANIAL FINDINGS. EVIDENCE OF ACUTE STROKE: NO. Critical Radiology Results Reviewed: No Critical Results - EKG Interpretation by De Rate: Normal - EKG interpreted by Dr. Stout: Normal sinus rhythm, rate 81, SC interval 164 ms QT interval 336 ms, left axis deviation, no ischemic findings, compared to EKG dated 05/11/[address] elevation in the inferior leads and no longer present. Interpretation Abnormal EKG. Discharge - Discharge Clinical Impression: Numbness and tingling, Numbness of tongue, Atypical chest pain Headache Qualifiers: Headache type: other headache syndrome Qualified Code(s): G44.89 - Other headache syndrome Hypertension Qualifiers: Hypertension type: unspecified Qualified Code(s): I10 - Essential (primary) hypertension Condition: Good Disposition: HOME, SELF-CARE Instructions: Headache ([facility]) Additional Instructions: You are seen in the emergency department today with headache and atypical numbness involving your tongue face upper torso. The CT scans were negative as well as the lab studies. You have been referred to a neurologist as well as I am requesting that you follow-up with your risk assessor regarding your blood pressure control and medication selection. Please continue your usual medications. You are given a prescription for hydroxyzine to help relax your nerves if you have further episodes. Take the medication as prescribed and increase your water intake when taking these medications. If your symptoms are worsening or if you have other concerns you may return to the emergency department for further evaluation and treatment HOME CARE INSTRUCTIONS & INFORMATION: Thank you for choosing us for your medical needs. We hope you're satisfied with the care you received. After you leave, you must properly care for your problem and, at the same time, observe its progress. Any condition can change. Some illnesses can change rapidly over hours or days. If your condition worsens, return to the Emergency Department or see your physician promptly. ABOUT YOUR X-RAYS AND EKG'S: If you had an EKG or X-rays taken, they have been read by the Emergency Physician. The X-rays and EKG's will also be read by a Radiologist or Purchasing Director within 24 hours. If discrepancies are noted, you will be notified by telephone. Please be certain the ED has a correct telephone number & address where you can be reached. Also, realize that some fractures or abnormalities do not show up on initial X-rays. If your symptoms continue, see your physician. ABOUT YOUR LABORATORY TEST: If you had laboratory tests, the results have been reviewed by the Emergency Physician. Some test results (for example cultures) may not be available for several days. You will be contacted if any test result shows you need additional treatment. Please be certain the ED has a correct telephone number and address where you can be reached. ABOUT YOUR MEDICATIONS: You will receive instructions on how to take your medicine on the prescription label you receive. Additional information may be provided by the Pharmacy. If you have questions afterwards, call the ED for clarification or further instructions. Some prescribed medications may cause drowsiness. Do not perform tasks such as driving a car or operating machinery without consulting your Pharmacist. If you feel you need a refill of pain medication, your condition will need re-evaluation. Please do not call for a refill of any medication. ABOUT YOUR SIGNATURE: Signature of this document acknowledges to followin. Understanding that you received emergency treatment and that you may be released before al medical problems are known or treated. Please be certain the ED has a correct phone number & address where you can be reached. 2. Acknowledgement that you will arrange for follow-up care as recommended. 3. Authorization for the Emergency Physician to provide information to your follow-up Physician in order to maximize your care. AT ANY TIME, IF YOUR SYMPTOMS CHANGE SIGNIFICANTLY OR WORSEN OR YOU DEVELOP NEW SYMPTOMS, RETURN TO THE EMERGENCY DEPARTMENT IMMEDIATELY FOR RE-EVALUATION. OUR GOAL IS TO PROVIDE EXCELLENT MEDICAL CARE! WE HOPE THAT WE HAVE MET YOUR EXPECTATIONS DURING YOUR EMERGENCY DEPARTMENT VISIT AND THAT YOU FEEL YOU HAVE RECEIVED EXCELLENT CARE! Prescriptions: Hydroxyzine Pamoate 25 mg PO Q6 PRN #20 capsule PRN Reason: Anxiety Referrals: TALAT OLIVIA MD [ACTIVE STAFF] - Follow up as needed ALEXANDER SWAN MD [NO LOCAL MD] - Follow up as needed
[2020-03-17 22:27] VITALS: BP 155/81
== END 2020-03-17 22:27 | disposition home or self-care (01) ==
LOC: ER 14:39
DX: R20.0 Anesthesia of skin (principal); G44.89 Other headache syndrome; R07.89 Other chest pain; I10 Essential (primary) hypertension
CPT/HCPCS: 36415; 70450; 71045; 80053; 82550; 82553; 82962; 84484; 85025; 85610; 85730; 93005; 93010; 99285

== ENCOUNTER 2020-03-27 18:14 | Emergency (ER) | payer MEDICARE ==
--- NOTE | 2020-03-27 19:20 | ER Document Report ---
ED Medical Screen (RME) - General Chief Complaint: Leg Pain Stated Complaint: UPPER LEG PAIN,NUMBNESS Time Seen by Provider: 03/27/20 19:14 Primary Care Provider: MARICARMEN JACK MD [Primary Care Provider] - Follow up as needed Notes: Patient presents complaining of left thigh pain. Patient reports having varicose vein procedure 2 weeks ago on the same leg. Patient states he has been having bleeding from his leg and does have some bruising with swelling. Patient reports occasional lightheadedness and occasional shortness of breath. I have greeted and performed a rapid initial assessment of this patient. A comprehensive ED assessment and evaluation of the patient, analysis of test results and completion of the medical decision making process will be conducted by additional ED providers. TRAVEL OUTSIDE OF THE [place] IN LAST 30 DAYS: No - Related Data Allergies/Adverse Reactions: pseudoephedrine [From Sudafed] Allergy (Mild, Verified 03/17/20 14:56) Sulfa (Sulfonamide Antibiotics) Allergy (Mild, Verified 03/17/20 14:56) Past Medical History - Social History Chew tobacco use (# tins/day): No Frequency of alcohol use: None Drug Abuse: None - Past Medical History Cardiac Medical History: Reports: Hx Coronary Artery Disease, Hx Heart Attack - 2010, STENT PLACEMENT RECURRING BLOCKAGE , Hx Hypercholesterolemia - Hypertriglyceridemia, Hx Hypertension Denies: Hx Atrial Fibrillation, Hx Congestive Heart Failure Pulmonary Medical History: Reports: Hx Bronchitis - SINUS INFECTION, Hx Sleep Apnea - CPAP prescribed Denies: Hx Asthma, Hx COPD, Hx Pneumonia Neurological Medical History: Denies: Hx Cerebrovascular Accident, Hx Seizures Endocrine Medical History: Reports: Hx Diabetes Mellitus Type 2. Denies: Hx Diabetes Mellitus Type 1, Hx Hyperthyroidism, Hx Hypothyroidism Renal/ Medical History: Denies: Hx Peritoneal Dialysis GI Medical History: Reports: Hx Gastroesophageal Reflux Disease. Denies: Hx Cirrhosis, Hx Crohn's Disease, Hx Hepatitis, Hx Ulcerative Colitis Musculoskeltal Medical History: Reports Hx Arthritis - BACK AND NECK, Denies Hx Gout Skin Medical History: Denies Hx Eczema, Denies Hx Psoriasis Psychiatric Medical History: Reports: Hx Depression, Hx Post Traumatic Stress Disorder Infectious Medical History: Denies: Hx Hepatitis Past Surgical History: Reports: Hx Abdominal Surgery, Hx Appendectomy, Hx Cardiac Catheterization, Hx Coronary Stent, Hx Orthopedic Surgery - right shoulder, bilat knee replacement, Other - Colonoscopy - Immunizations Immunizations up to date: Yes Hx Diphtheria, Pertussis, Tetanus Vaccination: Yes Physical Exam - Vital signs Vitals: Temp Pulse Resp BP Pulse Ox 98.5 F 79 20 129/61 H 96 03/27/20 18:32 03/27/20 18:32 03/27/20 18:32 03/27/20 18:32 03/27/20 18:32 - General Notes: Tenderness to medial aspect of the proximal left thigh, bruising noted to anterior aspect of left lower leg, exam limited as patient is in long pants in triage Course - Vital Signs Vital signs: Temp Pulse Resp BP Pulse Ox 98.5 F 79 20 129/61 H 96 03/27/20 18:32 03/27/20 18:32 03/27/20 18:32 03/27/20 18:32 03/27/20 18:32 Doctor's Discharge - Discharge Referrals: MARICARMEN JACK MD [Primary Care Provider] - Follow up as needed
[2020-03-27 19:56] LABS: ABSOLUTE EOSINOPHILS # (AUTO) 0.3 10^3/uL (0.0-0.6); ABSOLUTE LYMPHOCYTES (AUTO) 1.9 10^3/uL (0.5-4.7); ABSOLUTE MONOCYTES (AUTO) 1.1 10^3/uL (0.1-1.4); ABSOLUTE NEUT (AUTO) 5.5 10^3/uL (1.7-8.2); BASOPHILS % (AUTO) 0.5 % (0-2); EOSINOPHILS % (AUTO) 2.9 % (0-6); HEMATOCRIT 31.3 % (37.9-51.0); HEMOGLOBIN 10.7 g/dL (13.5-17.0); LYMPHOCYTES % (AUTO) 21.6 % (13-45); MEAN CORPUSCULAR HEMOGLOBIN 26.2 pg (27.0-33.4); MEAN CORPUSCULAR HGB CONC 34.1 g/dL (32.0-36.0); MEAN CORPUSCULAR VOLUME 77 fl (80-97); MONOCYTES % (AUTO) 12.4 % (3-13); PLATELET COUNT 363 10^3/uL (150-450); RED BLOOD COUNT 4.06 10^6/uL (4.35-5.55); RED CELL DISTRIBUTION WIDTH 17.5 % (11.5-14.0); SEGMENTED NEUTROPHILS % (AUTO) 62.6 % (42-78); TOTAL CELLS COUNTED % (AUTO) 100 %; WHITE BLOOD COUNT 8.8 10^3/uL (4.0-10.5)
[2020-03-27 20:03] LABS: INTERNATIONAL RATION (INR) 0.94; PROTHROMBIN TIME 12.8 SEC (11.4-15.4)
[2020-03-27 20:04] LABS: PARTIAL THROMBOPLASTIN TIME 30.2 SEC (23.5-35.8)
[2020-03-27 20:12] LABS: ALBUMIN 3.9 g/dL (3.5-5.0); ALKALINE PHOSPHATASE 139 U/L (38-126); ASPARTATE AMINO TRANSFERASE 24 U/L (17-59); BILIRUBIN,DIRECT 0.1 mg/dL (0.0-0.4); BILIRUBIN,TOTAL 0.4 mg/dL (0.2-1.3); BLOOD UREA NITROGEN 15 mg/dL (7-20); CARBON DIOXIDE 33 mmol/L (22-30); CHLORIDE 97 mmol/L (98-107); GLUCOSE 102 mg/dL (75-110); POTASSIUM 4.5 mmol/L (3.6-5.0); TOTAL PROTEIN 6.8 g/dL (6.3-8.2)
[2020-03-27 20:19] LABS: ANION GAP 5 (5-19)
--- NOTE | 2020-03-27 22:01 | RADIOLOGY REPORT (SQ) ---
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 HISTORY: 54-year-old patient with left lower extremity pain and swelling. FINDINGS: Normal compressibility and color Doppler images of the left common femoral, femoral, popliteal veins. The visualized soft tissues appear grossly unremarkable. There is nonocclusive thrombus seen at the left greater saphenous vein extending across the thigh. There are no findings to suggest deep vein thrombosis. IMPRESSION: There are no findings to suggest deep vein thrombosis within the left lower extremity. There is nonocclusive thrombus of the left greater saphenous vein, a superficial vein.
[2020-03-28] MEDS ORDERED: HYDROCODONE/ACETAMINOPHEN 5-325 MG TABLET PO ONE (04:49)
--- NOTE | 2020-03-28 05:15 | ER Document Report ---
ED Extremity Problem, Lower - General Chief Complaint: Leg Pain Stated Complaint: UPPER LEG PAIN,NUMBNESS Time Seen by Provider: 03/27/20 19:14 Primary Care Provider: MARICARMEN JACK MD [Primary Care Provider] - Follow up in 3-5 days TRAVEL OUTSIDE OF THE [place] IN LAST 30 DAYS: No - HPI Notes: Patient is a 54-year-old male with a past medical history of recent varicose vein procedure about 2 weeks ago who presents with pain in his left inner thigh. He states it happened about a week after the procedure. He has taken ibuprofen occasionally with minimal relief. Patient is currently on Plavix. He is not taking any other blood thinners. Patient states that pain is worse with walking. He has never had a blood clot before. He denies any chest pain or shortness of breath. Patient does mention that his left leg occasionally goes tingly. He does have chronic low back pain. He denies any loss of bowel or bladder. No weakness or saddle paresthesia. - Related Data Allergies/Adverse Reactions: pseudoephedrine [From Sudafed] Allergy (Mild, Verified 03/17/20 14:56) Sulfa (Sulfonamide Antibiotics) Allergy (Mild, Verified 03/17/20 14:56) Past Medical History - General Information source: Patient - Social History Smoking Status: Never Smoker Chew tobacco use (# tins/day): No Frequency of alcohol use: None Drug Abuse: None Family History: Reviewed & Not Pertinent, CAD, DM, Hyperlipidemia, Hypertension, Malignancy - Past Medical History Cardiac Medical History: Reports: Hx Coronary Artery Disease, Hx Heart Attack - 2010, STENT PLACEMENT RECURRING BLOCKAGE , Hx Hypercholesterolemia - Hypertriglyceridemia, Hx Hypertension Denies: Hx Atrial Fibrillation, Hx Congestive Heart Failure Pulmonary Medical History: Reports: Hx Bronchitis - SINUS INFECTION, Hx Sleep Apnea - CPAP prescribed Denies: Hx Asthma, Hx COPD, Hx Pneumonia Neurological Medical History: Denies: Hx Cerebrovascular Accident, Hx Seizures Endocrine Medical History: Reports: Hx Diabetes Mellitus Type 2. Denies: Hx Diabetes Mellitus Type 1, Hx Hyperthyroidism, Hx Hypothyroidism Renal/ Medical History: Denies: Hx Peritoneal Dialysis GI Medical History: Reports: Hx Gastroesophageal Reflux Disease. Denies: Hx Cirrhosis, Hx Crohn's Disease, Hx Hepatitis, Hx Ulcerative Colitis Musculoskeletal Medical History: Reports Hx Arthritis - BACK AND NECK, Denies Hx Gout Skin Medical History: Denies Hx Eczema, Denies Hx Psoriasis Psychiatric Medical History: Reports: Hx Depression, Hx Post Traumatic Stress Disorder Infectious Medical History: Denies: Hx Hepatitis Past Surgical History: Reports: Hx Abdominal Surgery, Hx Appendectomy, Hx Cardiac Catheterization, Hx Coronary Stent, Hx Orthopedic Surgery - right shoulder, bilat knee replacement, Other - Colonoscopy - Immunizations Immunizations up to date: Yes Hx Diphtheria, Pertussis, Tetanus Vaccination: Yes Review of Systems - Review of Systems Notes: CONSTITUTIONAL: No fever, fatigue or weight loss. SKIN: No rash. HENT: No congestion, ear pain, or sore throat. CARDIOVASCULAR: No chest pain or edema. RESPIRATORY: No cough, shortness of breath, congestion, or wheezing. GASTROINTESTINAL: No abdominal pain, nausea, vomiting, bloody stools or gumaro rrhea. MUSCULOSKELETAL: Positive for left medial thigh pain. NEUROLOGIC: No seizures. No headache, focal weakness or sensory changes. HEMATOLOGIC: No unusual bruising or bleeding. PSYCHIATRIC: No depression or anxiety. Physical Exam - Vital signs Vitals: Temp Pulse Resp BP Pulse Ox 98.5 F 79 20 129/61 H 96 03/27/20 18:32 03/27/20 18:32 03/27/20 18:32 03/27/20 18:32 03/27/20 18:32 - General General appearance: Appears well In distress: None Notes: VITAL SIGNS: Within normal limits. GENERAL: No acute distress, non-toxic appearance. HEAD: Normal with no signs of head trauma. EYES: Conjunctiva normal, no discharge. EARS: Hearing grossly intact. NECK: Normal range of motion, no tenderness CHEST: Clear breath sounds bilaterally. No wheezes, rales, or rhonchi. CARDIAC: Regular rate and rhythm. S1 and S2, without murmurs, gallops, or rubs. VASCULAR: No Edema. Strong dorsalis pedis pulses. Discomfort to palpation of left medial thigh. Healing ecchymosis to left lower extremity from varicose vein procedure. ABDOMEN: Normal and soft with no tenderness MUSCULOSKELETAL: Good range of motion of all major joints. Extremities without clubbing, cyanosis or edema. Sensation intact. NEUROLOGICAL: Alert and oriented x 3. No focal sensory or strength deficits. Speech normal. Follows commands appropriately. PSYCHIATRIC: Normal Affect, judgement and mood. SKIN: Normal appearance with no rashes. Course - Re-evaluation Re-evalutation: 03/28/20 06:56 Patient appears well on exam. He is resting comfortably. Patient's ultrasound shows a superficial nonocclusive thrombus in the greater saphenous vein. That i s exactly the site of his pain. I discussed with Dr. Orantes from oncology who recommended no further medication. He is already on Plavix. She recommended ibuprofen. Patient was told to use warm compresses and keep the area elevated. He is very agreeable to this plan. He will be discharged with outpatient follow-up. Strict return precautions provided. - Vital Signs Vital signs: Temp Pulse Resp BP Pulse Ox 98 F 78 21 H 128/69 H 94 03/28/20 05:29 03/28/20 05:29 03/28/20 05:29 03/28/20 05:29 03/28/20 05:29 - Laboratory Results Result Diagrams: 03/27/20 19:35 03/27/20 19:35 Laboratory Results Interpreted: 03/27/20 03/27/20 19:35 19:35 RBC 4.06 L Hgb 10.7 L Hct 31.3 L MCV 77 L MCH 26.2 L RDW 17.5 H Sodium 134.8 L Chloride 97 L Carbon Dioxide 33 H Creatinine 1.29 H Est GFR (MDRD) Non-Af 58 L Alkaline Phosphatase 139 H Critical Laboratory Results Reviewed: No Critical Results - Radiology Results Critical Radiology Results Reviewed: No Critical Results Discharge - Discharge Clinical Impression: Left leg pain, Superficial thrombosis of left lower extremity Condition: Stable Disposition: HOME, SELF-CARE Instructions: Leg Pain Nonspecific ([facility]) Additional Instructions: Your work-up today is reassuring. You have a superficial blood clot in the left leg. Make sure you keep the leg elevated when you are resting. You may use warm compresses on the area. Please take ibuprofen. Follow-up with your family doctor. Return to the ER for any worsening or change of symptoms. Referrals: MARICARMEN JACK MD [Primary Care Provider] - Follow up in 3-5 days
[2020-03-28 05:31] VITALS: BP 128/69
--- NOTE | 2020-04-01 14:54 | EKG REPORT ---
SEVERITY:- NORMAL ECG - SINUS RHYTHM : Confirmed by: Jina Tovar 01-Apr-2020 14:53:36
== END 2020-03-28 05:29 | disposition home or self-care (01) ==
LOC: ER 18:14
DX: I82.812 Embolism and thrombosis of superficial veins of left lower extremity (principal); M79.652 Pain in left thigh; M54.5 Low back pain; G89.29 Other chronic pain; R20.2 Paresthesia of skin; I25.10 Atherosclerotic heart disease of native coronary artery without angina pectoris; I10 Essential (primary) hypertension; I25.2 Old myocardial infarction; E11.9 Type 2 diabetes mellitus without complications; Z95.5 Presence of coronary angioplasty implant and graft; Z98.890 Other specified postprocedural states; Z79.02 Long term (current) use of antithrombotics/antiplatelets; Z88.2 Allergy status to sulfonamides; Z88.8 Allergy status to other drugs, medicaments and biological substances
CPT/HCPCS: 99285; 36415; 85025; 85610; 85730; 80053; 93971; A9270; 93005; 93010